=== PATIENT | female | born 1965 | race Caucasian/White ===

== ENCOUNTER 2025-01-01 08:54 | Outpatient (REF) | payer BC, SELFPAY ==
--- NOTE | ~2025-01-01 | XR_ITS ---
CLINICAL HISTORY: M43.16 - Spondylolisthesis, lumbar region --- Additional Notes or Special Instructi ons: Standing, AP, lateral with flexion-extension views 4 views lumbar spine Comparison: None Findings: There is mild stable grade 1 spondylolisthesis at the L4-5 level. There is mild levoscoliosis. No acute fractures or dislocation. No significant degenerative change. IMPRESSION: There is mild stable grade 1 spondylolisthesis at the L4-5 level. There is mild levoscoliosis. This document has been electronically signed by: Booker Reeves MD on 01/01/2025 12:59:07
== END 2025-01-01 08:55 | disposition home or self-care (01) ==
LOC: HO.HOSX 08:54
PROVIDERS: PCP Internal Medicine; Referring Provider Physical Medicine & Rehabilitation; Visit Provider Physician Assistant
DX: M43.16 Spondylolisthesis, lumbar region (principal)
CPT/HCPCS: 72110

== ENCOUNTER 2025-01-01 08:54 | Outpatient (AMB) | payer BC, SELFPAY ==
--- OUTSIDE RECORDS SUMMARY | 2025-01-01 09:13 | XMS_ITS | Encounter Summary ---
Author Organization [facility] Address [address] [place] [address] Care Team Providers Care Head Kiln Operator Name Role Phone Steven Taylor MD Primary Care Provider [phone] Encounter Details Date Type Department Care Team Description 05/10/2024 English Adjunct Faculty Report Medical Records [address] [place] [address] Abstract, Provider Social History Tobacco Use Types Packs/Day Years Used Date Smoking Tobacco: Never Smokeless Tobacco: Never Alcohol Use Standard Drinks/Week Comments No 0 (1 standard drink = 0.6 oz pur e alcohol) Sex Assigned at Date Recorded Not on file Job Start Date Occupation Industry Not on file Not on file Not on file documented as of this encounter Plan of Treatment Not on file documented as of this encounter Visit Diagnoses Not on filedocumented in this encounter Care Teams Head Kiln Operator Relationship Specialty Start Date End Date Steven Taylor MD [address] [place] [address] PCP - General Internal Medicine 10/20/20 documented as of this encounter
[2025-01-01 09:22] VITALS: BMI 26.6
--- NOTE | 2025-01-01 09:22 | A.SPINEOV_ITS ---
Vital Signs 01/01/25 09:22 Height 5 ft 7 in Weight 170 lb BMI 26.6 Intake Visit Reasons: LBP Intake Note: Ms. Medina is here today c/o Low back pain. Outside Parts Salesman Required: No Physical Exam Vital Signs: BMI result Body Mass Index 26.6 Assessment & Plan Assessment & Plan (1) Spondylolisthesis, lumbar region: Code(s): M43.16 - Spondylolisthesis, lumbar region Category: Medical Plan Dear Dr Collins, Thank you for referring Mrs Medina to our office today. 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 It has been getting progressively worse, and has gotten to the point now where she has had 2 stopped walking even short distances to do things because it hurts too bad. She reports that she has a limp when she walks. The pain is localize best to the right buttock, wraps around to the posterior and the anterior thigh going to the knee and then going down the outer aspect of the right calf toward the top of the foot. She underwent a series of different conservative measures including physical therapy, chiropractic as well as cortisone injections. She reports that you did 2 injections for her. The right L4 did not help, the right L5 seem to give her about 24 hours of pain relief. She has also been on medications like anti-inflammatories and Tylenol, Lyrica. These things helped a little bit but no major improvements. She had an MRI done at [facility] showing stenosis at L4-5. PMH: Hypertension which is well controlled, she is prediabetic but is on Ozempic which has also helped for weight loss. High cholesterol which is also well controlled. Reports history of asthma but does not need any treatment regularly for it only very mild symptoms. History of anterior cervical fusion in 2019, elbow surgery, carpal tunnel surgery. She does not report any history of coronary disease, major pulmonary disease, liver or kidney disease, blood clots, bleeding disorders, major abdominal surgery or cancer. Social hx: She has not smoke, she used to use gummies with marijuana but has not use these in a long time, and does not drink any meaningful amount of alcohol Medications: Lyrica, Tylenol, losartan, simvastatin, Xyzal Allergies: Lotrimin and a Z-Dennis Physical exam: Awake alert oriented no acute distress, strength is normal, reflexes are normal, gait is normal with the exception of antalgia when she wa lks. Has a slight scoliotic curvature when she stands up straight. Imaging review: Lumbar MRI done in August 2024 at [facility] shows that the patient has multilevel spondylosis but most meaningful is at L4-5 there is a grade 1 spondylolisthesis with moderate to severe stenosis. There is also slight foraminal stenosis at this level as well. There is a small posteriorly projected synovial cyst on the right L4-5 facet. Impression: 59-year-old female presents with progressive 2-3 years of right- sided low back pain radiating down her leg into her posterior thigh, anterior thigh, knee, lateral calf into the top of her foot with standing and walking. She has been through conservative treatment to no avail. The L5 injection that you did for did give her about 24 hours of pain relief. She has severe stenosis at L4-5. The question here is the spondylolisthesis. We need to do flexion- extension standing x-rays to rule out any instability. If there is no instability, Dr. Salazar typically with due to a simple decompression to treat the stenosis. If there is any signs of significant instability, obviously that would require lumbar fusion. I will review her MRI and the x-rays that I ordered today with Dr. Salazar and get back to the patient with a final plan. We did briefly discuss both surgical treatments. Thank you for allowing us to care for your patient. The total time spent with this visit with this patient was 45 minutes reviewing history, physical exam, lumbar imaging review, and implementation of treatment plan or further diagnostic testing Victor Manuel Salazar MD,PhD [facility] Orders: Orders 2 XR lumbar spine 4V min Today M43.16 - Spondylolisthesis, lumbar region Coding Level of Care Code New Pt Level 4 (18565) Diagnoses Spondylolisthesis, lumbar region M43.16
== END 2025-01-01 10:55 | disposition home or self-care (01) ==
LOC: HO.HNS 08:55
PROVIDERS: PCP Internal Medicine; Referring Provider Physical Medicine & Rehabilitation; Visit Provider Physician Assistant
DX: M43.16 Spondylolisthesis, lumbar region (principal)
CPT/HCPCS: 99204

== ENCOUNTER → 2025-01-01 10:01 | Outpatient (BNV) | payer BC, SELFPAY | PROVIDERS: PCP Internal Medicine; Referring Provider Physical Medicine & Rehabilitation; Visit Provider Radiology Diagnostic Radiology | DX: M43.16 Spondylolisthesis, lumbar region (principal) | CPT/HCPCS: 72110 ==

== ENCOUNTER 2025-01-15 13:31 | Outpatient (AMB) | payer BC, SELFPAY ==
--- OUTSIDE RECORDS SUMMARY | 2025-01-15 13:37 | XMS_ITS | Patient Health Record ---
Author Organization [facility] Address [address] [place] [address] Care Team Providers Care Medical Case Manager Name Role Phone Steven Taylor MD Primary Care Provider Unavail able Roseline Carreno Unavailable [phone] Allergies Allergen (clinical drug ingredient) Drug/Non Drug Allergy documented on EMR Reaction Allergy Type Onset Date Status LamISIL hives Drug Allergy Active azithromycin Zithromax Z-Dennis hives Drug Allergy Active Latex Unknown Drug Allergy Active Dog dander Dog Dander Unknown Allergy Active Dust Mites Unknown Allergy Active Shellfish (FN) Shellfish-derived Products Unknown Drug Allergy Active Results Component Value Reference Range Notes X ray : Foot, left 3V Reviewed date:05/20/2024 05:05:13 PM Interpretation:See Examination above Performing Lab: Notes/Report: See Examination above X ray : Foot, right 3V Reviewed date:05/20/2024 05:04:31 PM Interpretation:See Examination above Performing Lab: Notes/Report: See Examination above Reason For Referral No Information Medications Medication SIG (Take, Route, Frequency, Duration) Notes Start Date End Date Status Losartan Potassium 50 MG TAKE 1 TABLET B Y MOUTH DAILY. Oral for 90 Active Custom Orthotics as directed 04/25/2015 Active Nasacort AQ 55 MCG/ACT 1 puff in each no stril Nasally Once a day for 30 day(s) Not-Taking Simvastatin 10 MG 1 tablet in the evening Orally Once a day Active ProAir HFA 108 (90 Base) MCG/ACT INHALE 2 PUFF(S) EVERY 4 HOURS NEEDED FOR 30 DAYS Inhalation for 17 Not-Taking Singulair 10 MG 1 tablet in the evening Orally Once a day for 30 day(s) Active Estrostep Fe 1-20/1-30/1-35 MG-MCG 1 tablet Orally Once a day for 28 day(s) Not-Taking Custom Orthotics as directed 03/16/2019 Active Cozaar 50 MG 1 tablet Orally Once a day for 30 day(s) Not-Taking Proventil Active LamISIL 250 MG 1 tablet Orally Once a day for 7 days then stop for 3 weeks repeat cycle 90 days for 90 days 12/22/2020 Not-Taking Ozempic Active Xiidra Not-Taking Flovent Diskus Activ e Vitamin D Not-Taking Albuterol Active Levothyroxine Sodium Not-Taking Aspirin 81 MG 1 tablet Orally Once a day for 30 day(s) Not-Taking Custom Orthotics as directed 07/14/2024 Active Lisinopril 20 MG 1 tablet Orally Once a day for 30 day(s) Not-Taking Zoloft Not-Taking Immunizations Vaccine Route Administration Date Status Comme nts COVID-19 Pfizer BioNTech Vaccine Unknown 05/18/2021 Administered 1st vaccine 10/17/20 2nd dose: 11/07/2020 Social History Tobacco Use: Social History Observation Description Date Details (start date - stop date) Never Smoker NA - NA Tobacco use other than smoking: Question Answer Notes Are you an other tobacco user? No Tobacco Control (Standard) Question Answer Notes Tobacco use: Nonsmoker Additional Findings: Tobacco non-user Current no nsmoker AUDIT-C (Standard) Question Answer Notes Did you have a drink containing alcohol in the p ast year? 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) Active confirmed Problem Pronation of foot (98514623) Pronation deformity of right foot (M21.6X1) Active confirmed Problem Raynaud's phenomenon (762431175) Raynaud's phenomenon without gangrene (I73.00) Active confirmed Problem Localized, primary osteoarthritis of the ankle and/or foot (177721274) Arthritis of joint of lesser toe, left (M19.072) Active confirmed Problem Localized, primary osteoarthritis of the ankle and/or foot (846146456) Arthritis of joint of lesser toe, right (M19.071) Active confirmed Problem Plantar fascial fibromatosis (48013831) Plantar fasciitis, bilateral (M72.2) Active confirmed Vital Signs Blood pressure diastolic 71 mm Hg 09/08/2024 Height 5ft 7in in 09/08/2024 Blood pressure systolic 110 mm Hg 09/08/2024 Weight 178 lbs 09/08/2024 BMI 27.88 kg/m2 09/08/2024 Encounters Encounter Location Date Provider Diagnosis [address] [address] 05/20/2024 Roseline Black Pain in right toe(s) M79.674 ; Other hammer toe(s) (acquired), right foot M20.41 ; Arthritis of joint of lesser toe, right M19.071 ; Pain in left toe(s) M79.675 ; Other hammer toe(s) (acquired), left foot M20.42 ; Arthritis of joint of lesser toe, left M19.072 ; Subluxation of metatarsophalangeal joint of toe, initial encounter S93.149A ; Pain in right foot M79.671 ; Plantar fasciitis, bilateral M72.2 ; Other myositis of right foot M60.871 ; Bursitis of right foot M77.51 ; Pain in left foot M79.672 ; Other myositis of left foot M60.872 ; Bursitis of left foot M77.52 and Ganglion cyst M67.[address] [address] 07/14/2024 Roseline Black Pain in right foot M 79.671 ; Plantar fasciitis, bilateral M72.2 ; Other myositis of right foot M60.871 ; Bursitis of right foot M77.51 ; Pain in left foot M79.672 ; Other myositis of left foot M60.872 and Bursitis of left foot M77.[address] [facility] [address] 09/08/2024 Roseline Black Pain in right foot M 79.671 ; Plantar fasciitis, bilateral M72.2 ; Other myositis of right foot M60.871 ; Bursitis of right foot M77.51 ; Pain in left foot M79.672 ; Other myositis of left foot M60.872 and Bursitis of left foot M77.[address] [facility] [address] 05/20/2024 Roseline Black [facility] [address] 07/14/[address] [facility] [address] 10/16/2024 Roseline Black Assessments Encounter Date Diagnosis (ICD Code) Assessment Notes Treatment Notes Treatment Clinical Notes Section Notes 05/20/2024 Pain in right toe(s) (ICD-10 - M79.674) 07/14/2024 Pain in right foot (ICD-10 - M79.671) 07/14/2024 Plantar fasciitis, bilateral (ICD-10 - M72.2) 09/08/2024 Pain in right foot (ICD-10 - M79.671) 07/14/2024 Other myositis of ri ght foot (ICD-10 - M60.871) 09/08/2024 Plantar fasciitis, bilateral (ICD-10 - M72.2) 05/20/2024 Other hammer toe(s) (acquired), right foot (ICD-10 - M20.41) 09/08/2024 Other myositis of ri ght foot (ICD-10 - M60.871) 07/14/2024 Bursitis of right fo ot (ICD-10 - M77.51) 05/20/2024 Arthritis of joint o f lesser toe, right (ICD-10 - M19.071) 07/14/2024 Pain in left foot (ICD-10 - M79.672) 09/08/2024 Bursitis of right fo ot (ICD-10 - M77.51) 05/20/2024 Pain in left toe(s) (ICD-10 - M79.675) 05/20/2024 Other hammer toe(s) (acquired), left foot (ICD-10 - M20.42) 07/14/2024 Other myositis of le ft foot (ICD-10 - M60.872) 09/08/2024 Pain in left foot (ICD-10 - M79.672) 07/14/2024 Bursitis of left brittni t (ICD-10 - M77.52) 09/08/2024 Other myositis of le ft foot (ICD-10 - M60.872) 05/20/2024 Arthritis of joint o f lesser toe, left (ICD-10 - M19.072) 05/20/2024 Subluxation of metatarsophalangeal joint of toe, initial encounter (ICD-10 - S93.149A) 09/08/2024 Bursitis of left brittni t (ICD-10 - M77.52) 05/20/2024 Pain in right foot (ICD-10 - M79.671) 05/20/2024 Other myositis of ri ght foot (ICD-10 - M60.871) 05/20/2024 Plantar fasciitis, bilateral (ICD-10 - M72.2) Patient Educated with: HEEL CORD STRETCHES.pdf (HEEL CORD STRETCHES.pdf ) Patient Educated with: RICE THERAPY.pdf (RICE THERAPY.pdf) 05/20/2024 Bursitis of right fo ot (ICD-10 - M77.51) 05/20/2024 Pain in left foot (ICD-10 - M79.672) 05/20/2024 Other myositis of le ft foot (ICD-10 - M60.872) 05/20/2024 Bursitis of left brittni t (ICD-10 - M77.52) 05/20/2024 Ganglion cyst (ICD-1 0 - M67.40) Plan Of Treatment Pending Test Test Name Order Date *Liver Function Test (LFT) 12/16/2020 X ray : Foot, left 3V 12/04/2012 X ray : Foot, right 3V 12/04/2012 [id number] NAIL, 6 OR MORE 03/17/2021 Insurance Providers Payer Name Payer Address Payer Phone Subscriber Number Group Number Insured Name Patient Relationship to Insured Coverage Start Date Coverage End Date Curtis [address] [place] [address] [id number] Stephanie Medina Self - patient is the insured Medical (General) History Medical History History ICD Code sciatica chicken pox back, hip, knee pain asthma Surgical History Surgery Date(Month/Year) right elbow surgery 2011 carpal tunnel surgery-right 07/2018
--- NOTE | 2025-01-15 14:14 | HO.SPINEOV ---
Intake Visit Reasons: discuss sx with in office Intake Note: Ms. Medina is here today to Discuss Surgery Caser Up Required: No Assessment & Plan Assessment & Plan (1) Spondylolisthesis, lumbar region: Code(s): M43.16 - Spondylolisthesis, lumbar region Category: Medical Plan Mrs Medina came back in today to discuss her issues with her low back and her degenerative spondylolisthesis and severe stenosis at L4-5. Her x-rays showed that she translated almost to a grade 2 spondylolisthesis with standing and we recommended an oblique lumbar interbody fusion. Dr. Salazar and I sat down with her today and reviewed the procedure again at length. She would like to proceed and we have tentatively booked her for March 09. She will stop her Ozempic 1 week prior to surgery. She is otherwise reasonably healthy and I do not see any issues for needing clearance. The patient was given risk and benefits of oblique lumbar interbody fusion surgery including but not limited to infection, hematoma, nerve injury, durotomy, weakness, bowel/bladder injury, persistent pain, and pseudoarthosis or instrumentation failure. We also discussed the option to continue with conservative treatment and patient wishes to proceed with surgery. They are aware they should stop NSAIDs 7 days prior to surgery. All questions were answered to the best of our ability. If there is anything about this patients medical history that we have overlooked or concerns you have about us proceeding with surgery we would appreciate any input you can offer Total amount of time spent in this visit was 20 minutes in discussion of symptoms, lumbar MRI imaging results and subsequent plan of care Victor Manuel Salazar MD,PhD [facility] Coding Level of Care Code Est Pt Level 3 (13191) Diagnoses Spondylolisthesis, lumbar region M43.16
== END 2025-01-15 15:03 | disposition home or self-care (01) ==
LOC: HO.HNS 13:32
PROVIDERS: PCP Internal Medicine; Visit Provider Physician Assistant
DX: M43.16 Spondylolisthesis, lumbar region (principal)
CPT/HCPCS: 99213

== ENCOUNTER 2025-01-28 14:45 | Outpatient (AMB) | payer BC, SELFPAY ==
[2025-01-28 14:46] VITALS: BP 130/76; PULSE 66; TEMP 36.7; O2SAT 99; BMI 27.1
--- NOTE | 2025-01-28 14:46 | AM.OFFWIN_ITS ---
Intake Vital Signs 01/28/25 14:46 Height 5 ft 7 in Weight 173 lb BMI 27.1 BP 130/76 Blood Pressure Location Lt brachial Position Sitting Pulse 66 Pulse Source Pulse Oximeter Temp 98.1 F Temp Source Oral Pulse Oximetry (%) 99 Oxygen Delivery Method Room Air Intake Visit Reasons: EP Ear Flush Intake Note: here for bilateral ear blockage, with left ear pain after bilateral ear flushing attempt at [facility] today Allergies azithromycin Allergy (Mild, Verified 01/28/25 14:56) Hives latex Allergy (Mild, Verified 01/28/25 14:56) Hives terbinafine Allergy (Mild, Verified 01/28/25 14:56) Hives Do you need a note to return to daycare/school/sports/work: No HPI HPI Comments History of Present Illness Details 59 y/o Female patient who presents to [facility] walk in clinic with c/o B/L Ear wax blockage. She was seen today at [facility] primary care where they attempted to Flush both ears unsuccessful. Pt presents to us asking for B/L Ear Flush. Reports feeling pain and discomfort, and Hearing problems. [facility] Medical History (Updated 01/28/25 @ 16:11 by Mayra Shepherd NP) Cerumen impaction Review of Systems Const All systems reviewed & are unremarkable except as noted in HPI and below Physical Exam Vital Signs: Last Vital Signs Temp 98.1 F 01/28/25 14:46 Pulse 66 01/28/25 14:46 BP 130/76 01/28/25 14:46 Pulse Ox 99 01/28/25 14:46 Oxygen Delivery Method Room Air 01/28/25 14:46 BMI result Body Mass Index 27.1 Const General: no acute distress Orientation/consciousness: patient oriented x3 HEENT Ears: external ears normal, TM abnormal obstructed by cerumen bilateral and unab le to visualize TM bilaterally Neuro General: patient oriented x3, gait normal and moves all extremities Psych Speech and movement: Normal speech and movement present Office Procedures Cerumen Removal From which ear canal was the cerumen removed: bilateral Removal: irrigation Notes: patient tolerated procedure well and no complications [id number] Irrigation/Lavage Assessment & Plan Assessment & Plan (1) Cerumen impaction: Code(s): H61.20 - Impacted cerumen, unspecified ear Qualifiers: Laterality: bilateral Qualified Code(s): H61.23 - Impacted cerumen, bilateral Plan: Ordered B/L Ear Lavage. Pt tolerated Procedure well. TM clear and intact after Irrigation. Acetaminophen for pain relief. Coding Level of Care Code Est Pt Level 4 (02676) Diagnoses Bilateral impacted cerumen H61.23 Laterality: bilateral CPT Codes Office Procedure - CPT: 22311-Wuv Irrigation/Lavage ([id number]) Time Spent (min) 20
--- OUTSIDE RECORDS SUMMARY | 2025-01-28 14:47 | XMS_ITS ---
Author Name [facility] Organization Unknown History of Medication Use Medication Directions Dispensed Refills Start Date End Date Stat us Ozempic 0.25 mg or 0.5 mg (2 mg/3 mL) subcutaneous pen injector Inject 0.5mg once weekly by subcutaneous route 11/10/2024 active mupirocin 2 % topical ointment APPLY TO AFFECTED AREA DAILY NEEDED completed Ozempic 0.25 mg or 0.5 mg (2 mg/3 mL) subcutaneous pen injector active albuterol sulfate HFA 90 mcg/actuation aerosol inhaler INHALE 2 PUFFS INTO LUNGS EVERY 4 HOURS NEEDED active Asmanex HFA 100 mcg/actuation aerosol inhaler active Breo Ellipta 100 mcg-25 mcg/dose powder for inhalation 1 PUFF IN THE AM active cyclobenzaprine 10 mg tablet TAKE 1 TABLET BY MOUTH AT BEDTIME NEEDED FOR MUSCLE SPASMS. active cyclobenzaprine 5 mg tablet TAKE ONE TABLET BY MOUTH 3 TIMES A DAY NEEDED FOR MUSCLE SPASM. active ergocalciferol (vitamin D2) 1,250 mcg (50,000 unit) capsule TAKE 1 CAPSULE BY MOUTH ONCE A WEEK FOR 84 DAYS. active Eucrisa 2 % topical ointment APPLY TO AFFECTED AREA TWICE A DAY active fluticasone propionate 110 mcg/actuation HFA aerosol inhaler INHALE 2 PUFFS INTO LUNGS TWICE A DAY active losartan 50 mg tablet TAKE 1 TABLET BY MOUTH 1 TIME EACH DAY. active montelukast 10 mg tablet TAKE 1 TABLET BY MOUTH EVERYDAY AT BEDTIME active simvastatin 10 mg tablet TAKE 1 TABLET BY MOUTH AT BEDTIME. active Allergies Allergen Reaction Severity Comment Documented Date Source Statu s [facility]YCIN [facility] Problems Problem Status Onset Date Problem Type Date of Resoluti on Source Obesity active 2024-04-01 ProblemAct [facility] Essential hypertension active 2024-05-10 ProblemAct [facility] Endocrine/metabolic screening active 2023-10-29 ProblemAct [facility] Hyperlipidemia active 2024-05-10 ProblemAct [facility] Insulin resistance active 2024-05-10 ProblemAct [facility] Prediabetes active 2024-05-10 ProblemAct [facility] Vitamin D deficiency active 2024-05-10 ProblemAct [facility] Encounters Encounter Type Encounter Reason Primary Diagnosis Location Date Ambulatory [facility] 11/19/2024 Ambulatory [facility] 09/22/2024 Ambulatory [facility] 07/27/2024 Care Team Organization Name Specialty Phone Email Start Date End Da te [facility] Steven Howie [facility] 10/27/2024 [facility] 06/12/2024 025
--- OUTSIDE RECORDS SUMMARY | 2025-01-28 14:48 | XMS_ITS | Patient Health Record ---
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 Oral; Duration: 90 Active [employer] as directed 04/25/2015 Active Nasacort AQ 55 MCG/ACT 1 puff in each no stril Nasally Once a day; Duration: 30 day(s) Not-Taking Simvastatin 10 MG 1 tablet in the evening Orally Once a day Active ProAir HFA 108 (90 Base) MCG/ACT INHALE 2 PUFF(S) EVERY 4 HOURS NEEDED FOR 30 DAYS Inhalation; Duration: 17 Not-Taking Singulair 10 MG 1 tablet in the evening Orally Once a day; Duration: 30 day(s) Active Estrostep Fe 1-20/1-30/1-35 MG-MCG 1 tablet Orally Once a day; Duration: 28 day(s) Not-Taking [employer] as directed 03/16/2019 Active Cozaar 50 MG 1 tablet Orally Once a day; Duration: 30 day(s) Not-Taking Proventil Active LamISIL 250 MG 1 tablet Orally Once a day for 7 days then stop for 3 weeks repeat cycle 90 days; Duration: 90 days 12/22/2020 Not-Taking Ozempic Active Xiidra Not-Taking Flovent Diskus Activ e Vitamin D Not-Taking Albuterol Active Levothyroxine Sodium Not-Taking Aspirin 81 MG 1 tablet Orally Once a day; Duration: 30 day(s) Not-Taking [employer] as directed 07/14/2024 Active Lisinopril 20 MG 1 tablet Orally Once a day; Duration: 30 day(s) Not-Taking Zoloft Not-Taking Immunizations Vaccine [...] Problem Acquired hammer toe of right foot (7655866601948893) Other hammer toe(s) (acquired), right foot (M20.41) Active confirmed Problem Acquired hammer toe of left foot (1664713499733656) Other hammer toe(s) (acquired), left foot (M20.42) Active confirmed Problem Plantar fascial fibromatosis (81981861) Plantar fascial fibromatosis (M72.2) Active confirmed Problem 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) Active confirmed Problem Pronation deformity of right foot (M21.6X1) Active confirmed Problem Raynaud's disease (254248853) Raynaud's phenomenon without gangrene (I73.00) Active confirmed Problem Localized, primary osteoarthritis of the ankle and/or foot (851287572) Arthritis of joint of lesser toe, left (M19.072) Active confirmed Problem Localized, primary osteoarthritis of the ankle and/or foot (710458362) Arthritis of joint of lesser toe, right (M19.071) Active confirmed Problem Plantar fascial fibromatosis (52865083) Plantar fasciitis, bilateral (M72.2) Active confirmed Vital Signs Blood pressure diastolic 71 mm Hg 09/08/2024 Height 5ft 7in in 09/08/2024 Blood pressure systolic 110 mm Hg 09/08/2024 Weight 178 lbs 09/08/2024 BMI 27.88 kg/m2 09/08/2024 Encounters Encounter Location Date Provider Diagnosis [address] [phone] 05/20/2024 Roseline Black Pain in right toe(s) [...] left foot M77.52 and Ganglion cyst M67.[address] [address] 07/14/2024 Roseline Black Pain in right foot M 79.671 ; Plantar fasciitis, bilateral M72.2 ; Other myositis of right foot M60.871 ; Bursitis of right foot M77.51 ; Pain in left foot M79.672 ; Other myositis of left foot M60.872 and Bursitis of left foot M77.[address] [facility] [address] 09/08/2024 Roseline Black Pain in right foot M 79.671 ; Plantar fasciitis, bilateral M72.2 ; Other myositis of right foot M60.871 ; Bursitis of right foot M77.51 ; Pain in left foot M79.672 ; Other myositis of left foot M60.872 and Bursitis of left foot M77.[address] [facility] [address] 05/20/2024 Roseline Black [facility] [address] 07/14/2024 [facility] [address] 10/16/2024 Roseline Black Assessments Encounter Date Diagnosis [...] X ray : Foot, right 3V 12/04/2012 [id number] NAIL, 6 OR MORE 03/17/2021 Insurance Providers Payer Name Payer Address Payer Phone Subscriber Number Group Number Insured Name Patient Relationship to Insured Coverage Start Date Coverage End Date Curtis Gandara [address] [place] [address] [id number] Stephanie Medina Self - patient is the insured Medical (General) History Medical History History ICD Code sciatica chicken pox back, hip, knee pain asthma Surgical History Surgery Date(Month/Year) right elbow surgery 2011 carpal tunnel surgery-right 07/2018
--- OUTSIDE RECORDS SUMMARY | 2025-01-28 14:48 | XMS_ITS | Clinical Summary ---
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 cancer risk assessment 9.1 % Breast cancer risk category Low (<15%) Location: [facility], [address] [place] [address], [address], [phone] Procedure Note Darlene Alberts MD - 05/13/2024 This is a summary report. The complete report is available in thepatient's medical record. If you cannot access the medical record, pleasecontact the sending organization for a detailed fax or copy. Full field digital screening tomosynthesis mammography, reviewed with CADand compared to previou mammograms dating back to 05/18/2020 with mostrecent of 04/04/2023. The breasts are composed of fatty and fibroglandulartissue. No suspicious mass, architectural distortion or suspiciouscalcifications are identified. IMPRESSION: : No mammographic evidence of malignancy. BIRADS 1-Negative; N. Breast density: The breasts have scattered areas of fibroglandulardensity. 5 year breast cancer risk assessment 1.7 % Lifetime breast cancer risk assessment 9.1 % Breast cancer risk category Low (<15%) Location: [facility], [address] [place] [address], [address], [phone] us Patti Hernández DO IMG XR PROCEDURES Final Resul t * Cervical Cancer Screening: HPV (11/30/2022) Cervical Cancer Screening: HPV negative, abstracted Historical Provider HEALTH MAINTENANCE Final Result * Hepatitis C Screening (04/13/2013) Hepatitis C Screening abstracted Historical Provider HEALTH MAINTENANCE Final Result from Last 3 Months or Most Recently Relevant to Health Maintenance Insurance [id number] [place] [address] ([employer]) [employer] [facility] ([employer]) Care Teams Cvicu Rn Relationship Specialty Start Date End Date Isabel Taylor MD [address] [place] [address] PCP - General Internal Medicine 10/20/20 01/29/25
== END 2025-01-28 15:45 | disposition home or self-care (01) ==
PROVIDERS: PCP Internal Medicine; Visit Provider Nurse Practitioner Family
DX: H61.23 Impacted cerumen, bilateral (principal)

== ENCOUNTER → 2025-01-28 14:45 | Outpatient (BNVA) | payer BC, SELFPAY | PROVIDERS: PCP Internal Medicine; Visit Provider Nurse Practitioner Family | DX: H61.23 Impacted cerumen, bilateral (principal) | CPT/HCPCS: 69209 ==

== ENCOUNTER 2025-02-04 09:57 | Outpatient (AMB) | payer BC, SELFPAY ==
--- NOTE | 2025-02-04 10:30 | A.OFFPC_ITS ---
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 Intake Note: Pt is here today as a New Patient to est care/PE Allergies azithromycin Allergy (Mild, Verified 02/04/25 10:53) Hives latex Allergy (Mild, Verified 02/04/25 10:53) Hives terbinafine Allergy (Mild, Verified 02/04/25 10:53) Hives Medication List - Last Reconciled 02/04/25 by Jeannine Vera MD albuterol sulfate 90 mcg/actuation 2 puffs inhalation Q4H PRN ergocalciferol (vitamin D2) 1,250 mcg PO QWEEK fexofenadine 180 mg PO DAILY fluticasone furoate 27.5 mcg/actuation (Flonase Sensimist) 1 spray intranasal DAILY fluticasone furoate-vilanterol 100-25 mcg/dose (Breo Ellipta) 1 ea inhalation QAM levocetirizine (Xyzal) 5 mg PO DAILY losartan 50 mg PO DAILY melatonin 3 mg PO BEDTIME PRN multivitamin (Daily Multi-Vitamin tablet) 1 tab PO DAILY pregabalin 75 mg PO BID semaglutide (Ozempic) 0.5 mg subcut QWEEK simvastatin 10 mg PO BEDTIME Tobacco use date assessed: 02/04/25 Dental Screening Dental Screen Date: 02/04/25 Did you have a dental visit in the last 12 months?: Yes Did you have a dental problem in the last 6 months where you did not have access to dental care?: Yes Was dental information given to patient?: Patient has dentist HPI 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 He has sees [facility] for her routine Pap and pelvic exam as well as for breast cancer screening, has an appointment already scheduled for later this month.. She has history of colonoscopy done [place] [address] Raya, due this year for her colon cancer screening again. She has hypertension stable and controlled on losartan 50 mg daily, takes simvastatin 10 mg at bedtime for her dyslipidemia. Has seasonal allergies, takes levocetirizine and Flonase nasal spray, has fexofenadine to take for breakthrough symptoms. She also has mild intermittent asthma current controlled on Breo Ellipta and has albuterol inhaler to use as needed for episodes of bronchospasm has been occurring rarely. . She goes to a medical weight loss clinic and is currently taking Ozempic 0.5 mg subcutaneously once a week for help with weight loss. Has been tolerating medication well and has been successful in losing weight . She has lumbar spinal stenosis previously seen Dr. Collins, who has referred her to Dr. Marie and is scheduled now for L4-5 lumbar spine decompression on 03/09/2025. [facility] Medical History (Updated 02/08/25 @ 01:11 by Jeannine Vera MD) Lumbar spinal stenosis Carpal tunnel syndrome of right wrist Cervical radiculopathy Vasomotor symptoms due to menopause Osteoarthritis Hypercholesterolemia Impaired fasting glucose Eczema of both hands Essential hypertension Allergic rhinitis Mild intermittent asthma Cerumen impaction Surgical History (Updated 02/04/25 @ 11:15 by Jeannine Vera MD) History of carpal tunnel surgery of right wrist History of dilatation and curettage Hx of colonoscopy Family History Maternal Grandfather Substance use disorder Social History Housing: House Patient Tobacco Use Status: Never used Tobacco e-Cigarette/Vaping Use: Never Used service: No Current occupational status: employed Cognitive needs: No Hearing needs: No Vision needs: Yes Female Reproductive History Menstrual Menopause type: natural Questionnaire PHQ-9 Over the last 2 weeks, how often have you been bothered by any of the following problems? 1. Little interest or pleasure in doing things: not at all 2. Feeling down, depressed, or hopeless: not at all 3. Trouble falling or staying asleep, or sleeping too much: several days 4. Feeling tired or having little energy: several days 5. Poor appetite or overeating: several days 6. Feeling bad about yourself - or that you are a failure or have let yourself or your family down: not at all 7. Trouble concentrating on things, such as reading the newspaper or watching television: not at all 8. Moving or speaking so slowly that other people could have noticed. Or the opposite - being so fidgety or restless that you have been moving around a lot more than usual: not at all 9. Thoughts that you would be better off or of hurting yourself in some way: not at all Total score: 3 Depression Screening Interpretation: Negative Depression Screening Done: Yes 13002 - PHQ-9 Billing: Yes Source: Developed by Drs. Ivan Becker, Nayana Julian, Sharan Morrow and colleagues, with an educational yunior from [employer]. Thrive Questionnaire Date Thrive assessed: 01/28/25 I am a: Patient What is your living situation today?: I have a steady place to live Within the past 12 months, did the food you bought not last and you didn't have the money to get more?: Never true Within the past 12 months, did you worry whether your food would run out before you got money to buy more?: Never true Do you have trouble paying for medicines?: No Do you have trouble getting transportation to medical appointments?: No Do you have trouble paying your heating and electricity bill?: No Do you have trouble taking care of your child, family member or friend?: No Do you have trouble with day-to-day activities such as bathing, preparing meals, shopping, managing finances, etc.?: No Are you currently unemployed and looking for a job?: No Are you interested in more education?: No Please select the resources that you would like help with: None Currently or been in a relationship where the following occur: No concerns reported THRIVE Score: 0 AUDIT C Alcohol Use Questionnaire (AUDIT-C) 1. How often do you have a drink containing alcohol?: Never Total Score: 0 SALVADOR-7 AMB Questionnaire SALVADOR-7 Date SALVADOR - 7 assessed: 02/04/25 Feeling nervous, anxious, or on edge: 0 = Not at all Not being able to stop or control worryin = Not at all Worrying too much about different things: 0 = Not at all Trouble relaxin = Not at all Being so restless that it is hard to sit still: 0 = Not at all Becoming easily annoyed or irritable: 0 = Not at all Feeling afraid as if something awful might happen: 0 = Not at all Total SALVADOR-7 score (0-4 normal; 5-9 mild; 10-14 moderate; 15-21 severe): 0 Source: Developed by Drs. Ivan Becker, Nayana Julian, Sharan Morrow and colleagues, with an educational yunior from [employer]. SALVADOR-7 Assessment Billing SALVADOR-7 Assessment Tool: SALVADOR-7 Assessment 95282 ACT Questionnaire In the past 4 weeks, how much of the time did your asthma keep you from getting as much done at work, school or at home?: None of the time During the past 4 weeks, how often have you had shortness of breath?: 1-2 times a week During the past 4 weeks, how often did your asthma symptoms wake you up at night or earlier than usual in the morning?: Not at all During the past 4 weeks, how often have you had to use your rescue inhaler or nebulizer medication?: Once a week or less How would you rate your asthma control during the past 4 weeks?: Well controlled Score: 22 Review of Systems Const Reports no additional complaints Eyes Details: Goes to [facility], Dr Godinez ENT Reports no additional complaints Card Denies chest pain at rest, Denies chest pain with activity, Denies irregular heart rhythm, Denies lightheadedness, Denies palpitations and Denies dyspnea Resp Denies cough and Denies dyspnea GI Reports no additional complaints Details: Has appointment with [facility] on 02/17/2025 for her yearly cervical cancer screening and to be scheduled for mammogram Musc Reports as per HPI and Reports back pain Skin/Breast Details: Sees [facility] annually Neuro Reports no additional complaints Psych Reports no additional complaints Endo Denies palpitations Jose A/Lymph Reports no additional complaints Aller/Immun Reports as per HPI Physical exam (Primary Care) Vital Signs: Last Vital Signs Temp 97.9 F 02/04/25 10:37 Pulse 77 02/04/25 10:37 Resp 16 02/04/25 10:37 BP 132/72 02/04/25 10:37 Pulse Ox 100 02/04/25 10:37 Oxygen Delivery Method Room Air 02/04/25 10:37 BMI result Body Mass Index 26.6 Tobacco/Smoking Status: Tobacco use Status Tobacco use date assessed 02/04/25 02/04/25 10:47 Patient Tobacco Use Status Never used Tobacco 02/04/25 10:47 e-Cigarette/Vaping Use Never Used 02/04/25 10:47 PHQ-9: PHQ-9 Score PHQ-9: Total score 3 02/08/25 00:31 Depression Screening Interpretation: Negative Thrive Assessment: Date of Thrive Assessment Date Thrive assessed 01/28/25 02/04/25 10:31 Currently or been in a relationship where the following occur: No concerns reported Advance Care Planning discussion: Completed/Scanned Date of discussion: 02/04/25 Who was present: Patient Forms completed: Health Care Proxy Time spent: 16-45 minutes Actual minutes spent: 3 Const General: no acute distress and alert Orientation/consciousness: patient oriented x3 HENMT Head: Yes normocephalic Ears: external ears normal, TM's normal bilaterally and EAC's normal General nose exam: Normal external nose present Face and sinus: Yes face symmetric Mouth: Normal oral and palatal mucosa present, oropharynx normal and moist mucous membranes Eyes General: appearance normal, both eyes and all related structures Eyelids: Yes eyelids normal Conjunctivae: conjunctivae normal Sclerae: sclerae normal Pupils: Equal, round and reactive pupils present EOM: EOMs intact bilaterally Neck Neck: Yes full ROM, Yes no lymphadenopathy and Yes supple Thyroid: Thyroid normal Chest Breast/axilla inspection: normal inspection of the breasts Breast/axilla palpation: normal palpation of the breasts Resp Effort & Inspection: normal respiratory effort and able to speak in complete sentences Auscultation: clear to auscultation bilaterally Cardio Rate: regular rate Rhythm: regular rhythm Heart sounds: S1 normal heart sound present and S2 normal heart sound present GI Palpation (GI): Soft to palpation, nontender, no guarding and no masses Auscultation: normal bowel sounds General: Yes no CVA tenderness Back/Spine/Pelvis Back: no CVA tenderness and No back tenderness Skin General skin exam: no rashes or lesions noted Neuro General: patient oriented x3, gait normal, moves all extremities, Normal light touch and pain sensation and no focal motor deficits Cranial nerves: Yes Equal, round and reactive pupils present Cognition (Neuro): normal cognition Gait exam (Neuro): Normal gait present Motor exam (neuro): 5/5 motor strength present throughout Extrem General: Yes normal to inspection, Yes full ROM, Yes no joint enlargement, Yes no pedal edema and Yes normal gait Psych Appearance: grossly normal and well kempt Mental Status: mental status grossly normal Speech and movement: Normal speech and movement present Affect: normal affect Attitude: cooperative Thought process: Normal thought process present Thought content: Normal thought content present Coding Level of Care Code New Pt Prev Care 40-64y(25986) Diagnoses Annual visit for general adult medical examination with abnormal findings Z00.01 Encounter for screening for malignant neoplasm of colon Z12.11 Essential hypertension I10 Impaired fasting glucose R73.01 Hypercholesterolemia E78.00 Encounter for counseling regarding advance directives Z71.89 Allergic rhinitis, unspecified seasonality, unspecified trigger J30.9 Allergic rhinitis trigger: unspecified Allergic rhinitis seasonality: unspecified Lumbar spinal stenosis M48.061 Mild intermittent asthma J45.20 Additional Codes SALVADOR-7 Assessment Billing - SALVADOR-7 Assessment Tool: SALVADOR-7 Assessment 87745 ([id number]) PHQ-9 - 94377 - PHQ-9 Billing: Yes ([id number]) Vital Signs *Quality* - Advance Care Planning discussion: Completed/Scanned ([id number]) Vital Signs *Quality* - Time spent: 16-45 minutes ([id number]) Assessment & Plan Assessment & Plan (1) Annual visit for general adult medical examination with abnormal findings: Code(s): Z00.01 - Encounter for general adult medical examination with abnormal findings Plan: Will check appropriate labs. Recommended dental visit every 6 months and regular eye exams, at least every 2 years. Take adequate calcium in diet and vitamin-D 3 at 2000 IU per cap once a day, in addition to weight-bearing exercises to help maintain good muscle tone and weight control. Instructed to do self-breast exam, and recommended to get yearly mammogram goes to [facility] for her routine Pap and pelvic exam and for her mammogram order, has appointment already scheduled per patient reminded to provide a screening copy of her last Pap smear and mammogram results. Up-to-date with her vaccines (2) Encounter for screening for malignant neoplasm of colon: Code(s): Z12.11 - Encounter for screening for malignant neoplasm of colon Plan: Referred back to Dr. Preston for her colon cancer screening (3) Essential hypertension: Code(s): I10 - Essential (primary) hypertension Category: Medical Plan: Blood pressure at goal of less than 130/80. Continue with losartan 50 mg daily. Reinforced importance of following a low sodium diet, getting regular exercise, and lowering stress levels. (4) Impaired fasting glucose: Code(s): R73.01 - Impaired fasting glucose Category: Medical Plan: Your previous fasting blood sugars were elevated above 100 mg/dL. Impaired glucose metabolism increases the risk for developing diabetes mellitus type 2, as well as heart attack and stroke later on. Lifestyle changes that promotes weight loss, healthy eating habits, and regular exercise are important, and can prevent the progression to diabetes (5) Hypercholesterolemia: Code(s): E78.00 - Pure hypercholesterolemia, unspecified Category: Medical Plan: Fasting lipids ordered, currently on simvastatin 10 mg at bedtime (6) Encounter for counseling regarding advance directives: Code(s): Z71.89 - Other specified counseling Plan: Initiated the conversation about Advanced Directives. Advanced Directives help patients prepare for current and future decisions about their medical treatment and place of care. Discussed with patient that it is a process where a patients current condition and prognosis are reviewed, their wishes for information regarding their illness are elicited, and likely medical dilemmas are presented and options discussed. Healthcare proxy form completed today. The form can be amended as needed, reviewed yearly and make changes as needed (7) Allergic rhinitis: Code(s): J30.9 - Allergic rhinitis, unspecified Category: Medical Qualifiers: Allergic rhinitis trigger: unspecified Allergic rhinitis seasonality: unspecified Qualified Code(s): J30.9 - Allergic rhinitis, unspecified Plan: Takes levocetirizine and an occasional fexofenadine and uses fluticasone nasal spray (8) Lumbar spinal stenosis: Comment: L4-L5, scheduled for lumbar spinal decompression 03/09/[address] Salazar. Code(s): M48.061 - Spinal stenosis, lumbar region without neurogenic claudication Category: Medical Plan: Seen by [facility] and has been referred to Dr. Salazar for lumbar spinal decompression scheduled for 03/09/2020 (9) Mild intermittent asthma: Comment: sees [facility] , has had allergy shots for more than 5 years Code(s): J45.20 - Mild intermittent asthma, uncomplicated Category: Medical Plan: Currently followed at a i.e. any, currently on Breo Ellipta and uses albuterol inhaler as needed for episodes of bronchospasm and wheezing. Orders: Orders Basic Metabolic Panel Fasting 02/06/25 E78.00 - Pure hypercholesterolemia, unspecified, I10 - Essential (primary) hypertension, R73.01 - Impaired fasting glucose, Z00.01 - Encounter for general adult medical examination with abnormal findings, Z71.89 - Other specified counseling Lipid Panel 02/06/25 E78.00 - Pure hypercholesterolemia, unspecified, I10 - Essential (primary) hypertension, R73.01 - Impaired fasting glucose, Z00.01 - Encounter for general adult medical examination with abnormal findings, Z71.89 - Other specified counseling Hemoglobin A1c 02/06/25 E78.00 - Pure hypercholesterolemia, unspecified, I10 - Essential (primary) hypertension, R73.01 - Impaired fasting glucose, Z00.01 - Encounter for general adult medical examination with abnormal findings, Z71.89 - Other specified counseling Vitamin D 25-OH Total 02/06/25 E78.00 - Pure hypercholesterolemia, unspecified, I10 - Essential (primary) hypertension, R73.01 - Impaired fasting glucose, Z00 .01 - Encounter for general adult medical examination with abnormal findings, Z71.89 - Other specified counseling Complete Blood Count Auto Diff 02/06/25 E78.00 - Pure hypercholesterolemia, unspecified, I10 - Essential (primary) hypertension, R73.01 - Impaired fasting glucose, Z00.01 - Encounter for general adult medical examination with abnormal findings, Z71.89 - Other specified counseling Alanine Aminotransferase 02/06/25 E78.00 - Pure hypercholesterolemia, unspecified, I10 - Essential (primary) hypertension, R73.01 - Impaired fasting glucose, Z00.01 - Encounter for general adult medical examination with abnormal findings, Z71.89 - Other specified counseling Aspartate Amino Transferase 02/06/25 E78.00 - Pure hypercholesterolemia, unspecified, I10 - Essential (primary) hypertension, R73.01 - Impaired fasting glucose, Z00.01 - Encounter for general adult medical examination with abnormal findings, Z71.89 - Other specified counseling Referrals Gastroenterology Referral Z12.11 - Encounter for screening for malignant neoplasm of colon Medications: New losartan 50 mg PO DAILY 90 tabs 4RF
--- OUTSIDE RECORDS SUMMARY | 2025-02-04 10:33 | XMS_ITS | Patient Health Record ---
Author Organization [facility] Address [address] [place] [address] Care Team Providers Care Self Defense Instructor Name Role Phone Steven Taylor MD Primary Care Provider Unavail able Roseline Carreno Unavailable [phone] Allergies Allergen (clinical drug ingredient) Drug/Non Drug [...] Problem Acquired hammer toe of right foot ([id number]) Other hammer toe(s) (acquired), right foot (M20.41) Active confirmed Problem Acquired hammer toe of left foot (0763761513084569) Other hammer toe(s) (acquired), left foot (M20.42) Active confirmed Problem Plantar fascial fibromatosis (34352844) Plantar fascial fibromatosis (M72.2) Active confirmed Problem 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) Active confirmed Problem Pronation deformity of right foot (M21.6X1) Active confirmed Problem Raynaud's disease (374375268) Raynaud's phenomenon without gangrene (I73.00) Active confirmed Problem Localized, primary osteoarthritis of the ankle and/or foot (535493624) Arthritis of joint of lesser toe, left (M19.072) Active confirmed Problem Localized, primary osteoarthritis of the ankle and/or foot (321117793) Arthritis of joint of lesser toe, right (M19.071) Active confirmed Problem Plantar fascial fibromatosis (38993708) Plantar fasciitis, bilateral (M72.2) Active confirmed Vital Signs Blood pressure diastolic 71 mm Hg 09/08/2024 Height 5ft 7in in 09/08/2024 Blood pressure systolic 110 mm Hg 09/08/2024 Weight 178 lbs 09/08/2024 BMI 27.88 kg/m2 09/08/2024 Encounters Encounter Location Date Provider Diagnosis [address] [address] 05/20/2024 Roseline Black Pain in right toe(s) [...] left foot M77.52 and Ganglion cyst M67.[address] [address] 07/14/2024 Roseline Black Pain in right foot M 79.671 ; Plantar fasciitis, bilateral M72.2 ; Other myositis of right foot M60.871 ; Bursitis of right foot M77.51 ; Pain in left foot M79.672 ; Other myositis of left foot M60.872 and Bursitis of left foot M77.[address] [facility] [address] 09/08/2024 Roseline Black Pain in right foot M 79.671 ; Plantar fasciitis, bilateral M72.2 ; Other myositis of right foot M60.871 ; Bursitis of right foot M77.51 ; Pain in left foot M79.672 ; Other myositis of left foot M60.872 and Bursitis of left foot M77.[address] [facility] [address] 05/20/2024 Roseline Black [facility] [address] 07/14/2024 Roseline Black [facility] [address] 10/16/2024 Roseline Black Assessments Encounter Date Diagnosis [...] X ray : Foot, right 3V 12/04/2012 [id number] NAIL, 6 OR MORE 03/17/2021 Insurance Providers Payer Name Payer Address Payer Phone Subscriber Number Group Number Insured Name Patient Relationship to Insured Coverage Start Date Coverage End Date Curtis Gandara [address] [place] [address] [id number] Stephanie Medina Self - patient is the insured Medical (General) History Medical History History ICD Code sciatica chicken pox back, hip, knee pain asthma Surgical History Surgery Date(Month/Year) right elbow surgery 2011 carpal tunnel surgery-right 07/2018
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
[2025-02-04 10:37] VITALS: BP 132/72; PULSE 77; RESP 16; TEMP 36.6; O2SAT 100; BMI 26.6
== END 2025-02-04 11:38 | disposition home or self-care (01) ==
LOC: HO.HMCC 09:57
PROVIDERS: PCP Internal Medicine; Visit Provider Internal Medicine
DX: Z00.01 Encounter for general adult medical examination with abnormal findings (principal); Z12.11 Encounter for screening for malignant neoplasm of colon; I10 Essential (primary) hypertension; R73.01 Impaired fasting glucose; E78.00 Pure hypercholesterolemia, unspecified; Z71.89 Other specified counseling; J30.9 Allergic rhinitis, unspecified; M48.061 Spinal stenosis, lumbar region without neurogenic claudication; J45.20 Mild intermittent asthma, uncomplicated; Z00.00 Encounter for general adult medical examination without abnormal findings

== ENCOUNTER → 2025-02-04 09:57 | Outpatient (BNVA) | payer BC, SELFPAY | PROVIDERS: PCP Internal Medicine; Visit Provider Internal Medicine | DX: Z00.01 Encounter for general adult medical examination with abnormal findings (principal); I10 Essential (primary) hypertension; R73.01 Impaired fasting glucose; E78.00 Pure hypercholesterolemia, unspecified; J30.9 Allergic rhinitis, unspecified; M48.061 Spinal stenosis, lumbar region without neurogenic claudication; J45.20 Mild intermittent asthma, uncomplicated; Z71.89 Other specified counseling | CPT/HCPCS: 96127 ==

== ENCOUNTER 2025-02-06 07:52 | Outpatient (REF) | payer BC, SELFPAY ==
--- OUTSIDE RECORDS SUMMARY | 2025-02-06 07:55 | XMS_ITS | Patient Health Record ---
Author Organization [facility] Address [address] [place] [address] Care Team Providers Care Land Classifier Name Role Phone Steven Taylor MD Primary Care Provider Unavail able Roseline Carreno Unavailable [phone] Allergies Allergen (clinical drug ingredient) Drug/Non Drug [...] Problem Acquired hammer toe of right foot (9462555018895362) Other hammer toe(s) (acquired), right foot (M20.41) Active confirmed Problem Acquired hammer toe of left foot (7977783283378093) Other hammer toe(s) (acquired), left foot (M20.42) Active confirmed Problem Plantar fascial fibromatosis (18434669) Plantar fascial fibromatosis (M72.2) Active confirmed Problem 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) Active confirmed Problem Pronation deformity of right foot (M21.6X1) Active confirmed Problem Raynaud's disease (218464715) Raynaud's phenomenon without gangrene (I73.00) Active confirmed Problem Localized, primary osteoarthritis of the ankle and/or foot (742363710) Arthritis of joint of lesser toe, left (M19.072) Active confirmed Problem Localized, primary osteoarthritis of the ankle and/or foot (731608866) Arthritis of joint of lesser toe, right (M19.071) Active confirmed Problem Plantar fascial fibromatosis (39666475) Plantar fasciitis, bilateral (M72.2) Active confirmed Vital Signs Blood pressure diastolic 71 mm Hg 09/08/2024 Height 5ft 7in in 09/08/2024 Blood pressure systolic 110 mm Hg 09/08/2024 Weight 178 lbs 09/08/2024 BMI 27.88 kg/m2 09/08/2024 Encounters Encounter Location Date Provider Diagnosis [address] [address] 05/20/2024 Roseline Black Pain in right toe(s) [...] left foot M77.52 and Ganglion cyst M67.[address] [address] 07/14/2024 Roseline Black Pain in right foot M 79.671 ; Plantar fasciitis, bilateral M72.2 ; Other myositis of right foot M60.871 ; Bursitis of right foot M77.51 ; Pain in left foot M79.672 ; Other myositis of left foot M60.872 and Bursitis of left foot M77.52 [facility] [address] 09/08/2024 Roseline Black Pain in right foot M 79.671 ; Plantar fasciitis, bilateral M72.2 ; Other myositis of right foot M60.871 ; Bursitis of right foot M77.51 ; Pain in left foot M79.672 ; Other myositis of left foot M60.872 and Bursitis of left foot M77.[address] [facility] [address] 05/20/2024 Roseline Black [facility] [address] 07/14/2024 [facility] [address] 10/16/2024 Roseline Black Assessments Encounter Date Diagnosis [...] X ray : Foot, right 3V 12/04/2012 [id number] NAIL, 6 OR MORE 03/17/2021 Insurance Providers Payer Name Payer Address Payer Phone Subscriber Number Group Number Insured Name Patient Relationship to Insured Coverage Start Date Coverage End Date Curtis Gand[address] [place] [address] [id number] Stephanie Medina Self - patient is the insured Medical (General) History Medical History History ICD Code sciatica chicken pox back, hip, knee pain asthma Surgical History Surgery Date(Month/Year) right elbow surgery 2011 carpal tunnel surgery-right 07/2018
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
[2025-02-06 11:19] LABS: MANUAL DIFF FLAG NO
[2025-02-06 11:33] LABS: Hematocrit 38.3 % (37.0-47.0); Hemoglobin 12.7 g/dl (12.0-16.0); Imm Gran Abs Auto 0.02 X10*3/uL (0.00-0.03); Imm Gran Pct Auto 0.3 % (0.0-0.4); Lymphocytes Absolute Auto 1.6 X10*3/uL (1.2-4.9); Mean Corpuscular HGB Conc 33.2 g/dl (31.0-35.0); Mean Corpuscular Hemoglobin 29.3 pg (27.0-33.0); Mean Corpuscular Volume 88.5 fL (80.0-98.0); NRBC Abs Auto 0.000 X10*3/uL (0.0-0.012); NRBC Pct Auto 0.0 /100WBC (0.0-0.2); Platelet Count 250 X10*3/uL (160-400); Red Blood Count 4.33 X10*6/uL (4.20-5.50); White Blood Count 6.3 X10*3/uL (4.8-10.8)
[2025-02-06 11:45] LABS: Hemoglobin A1C 117.0025 umol/L; Total Hemoglobin (HGBA1C) 3376.2519 umol/L
[2025-02-06 11:57] LABS: Alanine Aminotransferase 29 U/L (0-31); Anion Gap 12 (12-20); Aspartate Amino Transferase 24 U/L (5-31); Blood Urea Nitrogen 19 mg/dL (9-16); Calcium 9.7 mg/dL (8.4-10.2); Carbon Dioxide 29 mmol/L (22-29); Chloride 105 mmol/L (96-108); Cholesterol 148 mg/dL (<200); Estimated Glomerular Filt Rate > 60; HDL Cholesterol 58 mg/dL (>40); Potassium 4.1 mmol/L (3.3-5.1); Sodium 142 mmol/L (135-145); Triglycerides 86 mg/dL (<150)
== END 2025-02-06 07:53 | disposition home or self-care (01) ==
LOC: HO.HMGCLDS 07:52
PROVIDERS: PCP Internal Medicine; Visit Provider Internal Medicine
DX: Z00.01 Encounter for general adult medical examination with abnormal findings (principal); I10 Essential (primary) hypertension; E78.00 Pure hypercholesterolemia, unspecified; R73.01 Impaired fasting glucose; Z71.89 Other specified counseling
CPT/HCPCS: 36415; 80048; 80061; 82306; 83036; 84450; 84460; 85025

== ENCOUNTER 2025-02-12 08:41 | Outpatient (AMB) | payer BC, SELFPAY ==
--- NOTE | 2025-02-12 08:43 | A.OFFPC_ITS ---
Intake Visit Reasons: anxiety/depression android [employer] Electronic War[employer] Officer Required: No Accompanied by: Self / Same As Patient Allergies azithromycin Allergy (Mild, Verified 02/12/25 09:19) Hives latex Allergy (Mild, Verified 02/12/25 09:19) Hives terbinafine Allergy (Mild, Verified 02/12/25 09:19) Hives Medication List - Last Reconciled 02/12/25 by Jeannine Vera MD albuterol sulfate 90 mcg/actuation 2 puffs inhalation Q4H PRN fexofenadine 180 mg PO DAILY fluticasone furoate 27.5 mcg/actuation (Flonase Sensimist) 1 spray intranasal DAILY fluticasone furoate-vilanterol 100-25 mcg/dose (Breo Ellipta) 1 ea inhalation QAM levocetirizine (Xyzal) 5 mg PO DAILY losartan 50 mg PO DAILY melatonin 3 mg PO BEDTIME PRN multivitamin (Daily Multi-Vitamin tablet) 1 tab PO DAILY pregabalin 75 mg PO BID semaglutide (Ozempic) 0.5 mg subcut QWEEK simvastatin 10 mg PO BEDTIME Tobacco use date assessed: 02/12/25 Dental Screening Dental Screen Date: 02/04/25 Did you have a dental visit in the last 12 months?: Yes Did you have a dental problem in the last 6 months where you did not have access to dental care?: No Was dental information given to patient?: Patient has dentist HPI anxiety/depression android HPI Details 69-year-old lady here today stating that she has been having frequent a ttacks of anxiety lately, mostly brought about by her problems with her finances and presence of bugs in her house . She states that she has already called an agricultural extension specialist and was able to fix latter problem, and is in a better situation now with regards to her finances. She has been seeing a therapist which has been helping. She also has started exercising again which helps relieve her anxiety attacks. Does not want to be referred for Psychiatry and does not feel that she needs to be started on any medication at present time. [facility] Medical History (Updated 02/12/25 @ 09:29 by Jeannine Vera MD) Dyslipidemia Acute anxiety Lumbar spinal stenosis Carpal tunnel syndrome of right wrist Cervical radiculopathy Vasomotor symptoms due to menopause Osteoarthritis Hypercholesterolemia Impaired fasting glucose Eczema of both hands Essential hypertension Allergic rhinitis Mild intermittent asthma Cerumen impaction Surgical History History of carpal tunnel surgery of right wrist History of dilatation and curettage Hx of colonoscopy Family History Maternal Grandfather Substance use disorder Social History Housing: House Patient Tobacco Use Status: Never used Tobacco e-Cigarette/Vaping Use: Never Used service: No Current occupational status: employed Cognitive needs: No Hearing needs: No Vision needs: Yes Questionnaire PHQ-9 Over the last 2 weeks, how often have you been bothered by any of the following problems? 1. Little interest or pleasure in doing things: not at all 2. Feeling down, depressed, or hopeless: not at all 3. Trouble falling or staying asleep, or sleeping too much: not at all 4. Feeling tired or having little energy: not at all 5. Poor appetite or overeating: not at all 6. Feeling bad about yourself - or that you are a failure or have let yourself or your family down: not at all 7. Trouble concentrating on things, such as reading the newspaper or watching television: not at all 8. Moving or speaking so slowly that other people could have noticed. Or the opposite - being so fidgety or restless that you have been moving around a lot more than usual: not at all 9. Thoughts that you would be better off or of hurting yourself in some way: not at all Total score: 0 Depression Screening Interpretation: Negative Depression Screening Done: Yes 85328 - PHQ-9 Billing: Yes Source: Developed by Drs. Ivan Becker, Nayana Julian, Sharan Morrow and colleagues, with an educational yunior from [employer]. Thrive Questionnaire Date Thrive assessed: 01/28/25 SALVADOR-7 AMB Questionnaire SALVADOR-7 Date SALVADOR - 7 assessed: 02/12/25 Feeling nervous, anxious, or on edge: 1 = Several days Not being able to stop or control worryin = Several days Worrying too much about different things: 1 = Several days Trouble relaxin = Not at all Being so restless that it is hard to sit still: 0 = Not at all Becoming easily annoyed or irritable: 1 = Several days Feeling afraid as if something awful might happen: 0 = Not at all Total SALVADOR-7 score (0-4 normal; 5-9 mild; 10-14 moderate; 15-21 severe): 4 Source: Developed by Drs. Ivan Becker, Nayana Julian, Sharan Morrow and colleagues, with an educational yunior from [employer]. SALVADOR-7 Assessment Billing SALVADOR-7 Assessment Tool: SALVADOR-7 Assessment 46783 Review of Systems Const Reports no additional complaints ENT Reports no additional complaints Card Denies chest pain at rest, Denies chest pain with activity, Denies irregular heart rhythm, Denies lightheadedness and Denies dyspnea Resp Denies cough and Denies dyspnea GI Reports no additional complaints Skin/Breast Details: Sees [facility] annually Neuro Reports no additional complaints Psych Reports no additional complaints Physical exam (Primary Care) Tobacco/Smoking Status: Tobacco use Status Tobacco use date assessed 02/12/25 02/12/25 08:50 Patient Tobacco Use Status Never used Tobacco 02/12/25 08:50 e-Cigarette/Vaping Use Never Used 02/12/25 08:50 PHQ-9: PHQ-9 Score PHQ-9: Total score 0 02/12/25 09:28 Depression Screening Interpretation: Negative Thrive Assessment: Date of Thrive Assessment Date Thrive assessed 01/28/25 02/12/25 08:50 Telehealth Telehealth Telehealth Platform: [facility] Location of provider rendering services: practice address Location of patient: address on file Patient Identification confirmed using: Name, : Yes Telehealth method: voice only Patient verbally consented to treatment: Yes Patient verbally consented to billing insurance company: Yes Patient informed of any privacy concerns related to visit: Yes Minutes spent on Phone/Video with Pt.: 15 Coding Level of Care Code Tele Est Pt Level 3 (17802) Diagnoses Acute anxiety F41.9 Additional Codes SALVADOR-7 Assessment Billing - SALVADOR-7 Assessment Tool: SALVADOR-7 Assessment 80116 ([id number]) PHQ-9 - 90400 - PHQ-9 Billing: Yes ([id number]) Assessment & Plan Assessment & Plan (1) Acute anxiety: Code(s): F41.9 - Anxiety disorder, unspecified Category: Medical Plan: Discussed symptoms of anxiety. She already sees a therapist which has been helping, does not feel D the ne start ed on medication at present time. iscussed other ways to relieve stress including : exercise or a massage, Get enough rest, Avoid alcohol, caffeine, nicotine, and illegal drugs which can increase your anxiety level and cause sleep problems.
--- OUTSIDE RECORDS SUMMARY | 2025-02-12 08:45 | XMS_ITS | Clinical Summary ---
Author Organization [facility] Address [address] [phone] Phone Care Team Providers Care Head Start Director Name Role Phone Isabel Taylor MD Primary Care Provider Social History Tobacco Use Types Packs/Day Years Used Date Smoking Tobacco: Never Assessed Education Answer Date Recorded Are you interested in more education? Not on mag e 11/24/2022 Are you concerned about learning? Not on file 11/24/2022 No 11/24/2022 No 11/24/2022 Digital Access Answer Date Recorded No 12/25/2022 No 12/25/2022 Reliable internet access at home? Not on file 12/25/2022 Device with a working camera? Not on file Comments Unknown Sex and Gender Information Value Date Recorded Sex Assigned at Not on file Legal Sex Unknown 11/17/2021 1:05 PM EDT Gender Identity Not on file Sexual Orientation Not on file Plan of Treatment Not on file Medical Devices Not on file Insurance [facility] PPO BLUE CROSS OUT OF STATE PPO BLUE CROSS OUT OF STATE PPO BLUE CROSS OUT OF [facility] PPO BLUE CROSS OUT OF STATE PPO [facility] OUT STATE PPO Care Teams Head Start Director Relationship Specialty Start Date End Date Isabel Taylor MD [address] [place] [address] PCP - General Internal Medicine 11/20/21 Additional Source Comments The information contained in this document represents components of the legal health record. It is not the complete legal health record.[facility]
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
--- OUTSIDE RECORDS SUMMARY | 2025-02-12 08:45 | XMS_ITS | Patient Health Record ---
Author Organization [facility] Address [address] [place] [address] Care Team Providers Care Slab Grinder Name Role Phone Steven Taylor MD Primary Care Provider Unavail able Roseline Carreno Unavailable [phone] Allergies Allergen (clinical drug ingredient) Drug/Non Drug [...] Problem Acquired hammer toe of right foot (6927378342676467) Other hammer toe(s) (acquired), right foot (M20.41) Active confirmed Problem Acquired hammer toe of left foot (7011280128110536) Other hammer toe(s) (acquired), left foot (M20.42) Active confirmed Problem Plantar fascial fibromatosis (90410681) Plantar fascial fibromatosis (M72.2) Active confirmed Problem 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) Active confirmed Problem Pronation deformity of right foot (M21.6X1) Active confirmed Problem Raynaud's disease (655142049) Raynaud's phenomenon without gangrene (I73.00) Active confirmed Problem Localized, primary osteoarthritis of the ankle and/or foot (619216895) Arthritis of joint of lesser toe, left (M19.072) Active confirmed Problem Localized, primary osteoarthritis of the ankle and/or foot (046576080) Arthritis of joint of lesser toe, right (M19.071) Active confirmed Problem Plantar fascial fibromatosis (20445178) Plantar fasciitis, bilateral (M72.2) Active confirmed Vital Signs Blood pressure diastolic 71 mm Hg 09/08/2024 Height 5ft 7in in 09/08/2024 Blood pressure systolic 110 mm Hg 09/08/2024 Weight 178 lbs 09/08/2024 BMI 27.88 kg/m2 09/08/2024 Encounters Encounter Location Date Provider Diagnosis [address] [phone] 05/20/2024 Roseline Black Pain in right toe(s) [...] left foot M77.52 and Ganglion cyst M67.[address] [address] 07/14/2024 Roseline Black Pain in right foot M 79.671 ; Plantar fasciitis, bilateral M72.2 ; Other myositis of right foot M60.871 ; Bursitis of right foot M77.51 ; Pain in left foot M79.672 ; Other myositis of left foot M60.872 and Bursitis of left foot M77.[address] [facility] [address] 09/08/2024 Roseline Black Pain in right foot M 79.671 ; Plantar fasciitis, bilateral M72.2 ; Other myositis of right foot M60.871 ; Bursitis of right foot M77.51 ; Pain in left foot M79.672 ; Other myositis of left foot M60.872 and Bursitis of left foot M77.[address] [facility] [address] 05/20/2024 Roseline Black [facility] [address] 07/14/2024 [facility] [address] 10/16/2024 Roseline Black Assessments Encounter Date Diagnosis [...] X ray : Foot, right 3V 12/04/2012 [id number] NAIL, 6 OR MORE 03/17/2021 Insurance Providers Payer Name Payer Address Payer Phone Subscriber Number Group Number Insured Name Patient Relationship to Insured Coverage Start Date Coverage End Date Curtis Gandara [address] [place] [address] [id number] Stephanie Medina Self - patient is the insured Medical (General) History Medical History History ICD Code sciatica chicken pox back, hip, knee pain asthma Surgical History Surgery Date(Month/Year) right elbow surgery 2011 carpal tunnel surgery-right 07/2018
== END 2025-02-12 10:09 | disposition home or self-care (01) ==
LOC: HO.HMCC 08:41
PROVIDERS: PCP Internal Medicine; Visit Provider Internal Medicine
DX: F41.9 Anxiety disorder, unspecified (principal)

== ENCOUNTER → 2025-02-12 08:41 | Outpatient (BNVA) | payer BC, SELFPAY | PROVIDERS: PCP Internal Medicine; Visit Provider Internal Medicine | DX: F41.9 Anxiety disorder, unspecified (principal); Z13.31 Encounter for screening for depression; Z13.39 Encounter for screening examination for other mental health and behavioral disorders | CPT/HCPCS: 96127 ==

== ENCOUNTER → 2025-02-23 12:50 | Outpatient (BNV) | payer BC, SELFPAY | PROVIDERS: Admitting Provider Neurological Surgery; PCP Internal Medicine; Visit Provider Internal Medicine Cardiovascular Disease | DX: Z01.810 Encounter for preprocedural cardiovascular examination (principal) | CPT/HCPCS: 93010 ==

== ENCOUNTER 2025-03-09 09:42 | Inpatient (IN) | payer BC, SELFPAY ==
--- OUTSIDE RECORDS SUMMARY | 2024-10-21 04:00 | XMS_ITS ---
Author Organization [facility] Address [address] [place] [address] Care Team Providers Care Pipe Fitter Supervisor Maintenance Name Role Phone Brandon HUBBARD, Steven Primary Care Provider Roseline Moya [phone] Encounters Encounter Location Date Provider Diagnosis [address] [address] 10/21/2024 Roseline Carreno Plan Of Treatment No Information Progress Notes * Stephanie MEDINA ADOB: [birth year] (59 yo F)Acc No.[id number]:10/21/2024 Progress Notes Patient: Setphanie SHAH Provider: Dannielle Carreno DPM :1965 A ge:59 Y S ex:Female Date:10/21/2024 Address:[address] [place], [place] [id number] Pcp:Steven Taylor MD Subjective: * Chief Complaints: [...] Carreno DPM Date: 0 10/21/2024 Generated for Printi ng/Faxing/eTransmitting on: 0 03/09/2025 10:26 AM EDT
--- NOTE | 2025-02-23 | ECG_ITS ---
Test Reason : preop Blood Pressure : */* mmHG Vent. Rate : 69 BPM Atrial Rate : 69 BPM P-R Int : 136 ms QRS Dur : 88 ms QT Int : 394 ms P-R-T Axes : 49 14 51 degrees QTcB Int : 422 ms Normal sinus rhythm Low voltage QRS Borderline ECG No previous ECGs available Referred By: Jazlyn Hsieh Electronically Signed By: FRANSISCO QUIROGA MD
[2025-02-23 12:11] VITALS: BP 118/61; PULSE 73; RESP 20; O2SAT 98; BMI 26.8
--- NOTE | 2025-02-23 12:28 | HO.ANESPROP2 ---
Documented by User: Jazlyn Hsieh NP 02/24/25 10:29 HPI - Anesthesia Eval Consult details Narrative: 59yo F for L4-5 Oblique Lumbar Interbody Fusion, 03/09/25 No recent illness No CP/SOB with walking, housework Asthma: controlled on Breo daily - very rare albuterol use 1 x report of BP/HR drop intraop requiring epi - resolved without further symptoms after discharge Anesthesia Pre-Procedure Meds Is the patient on any of the following meds?: GLP1/DPP4 PMFSH Active Problems Active Problems: All Active Problems Acute anxiety (Acute) Cervical radiculopathy (Acute) Spondylolisthesis, lumbar region (Acute) Dyslipidemia (Acute) Lumbar spinal stenosis (Acute) Osteoarthritis (Acute) Eczema of both hands (Acute) Essential hypertension (Acute) Allergic rhinitis (Acute) Mild intermittent asthma (Acute) Past Medical History Medical History Anesthesia complication Back pain Anxiety Cervical radiculopathy Dyslipidemia Lumbar spinal stenosis Carpal tunnel syndrome of right wrist Osteoarthritis Hypercholesterolemia Impaired fasting glucose Eczema of both hands Essential hypertension Allergic rhinitis Mild intermittent asthma Family History Family History Maternal Grandfather Substance use disorder Family history of problems with anesthesia: No Surgical History Surgical History Hx of cervical discectomy Hx of elbow surgery History of carpal tunnel surgery of right wrist History of dilatation and curettage Hx of colonoscopy History of Problems with Anesthesia: No Social History Social History Housing: House Are you a primary date night caregiver to a significant other at home: No Do you presently have visiting nurse or other home services: No Patient Tobacco Use Status: Never used Tobacco e-Cigarette/Vaping Use: Never Used Use of substances other than those prescribed or required for medical reasons: No Substance Use Type Other:: former use of marijuana edibles Have you been hit, kicked, punched, or otherwise hurt by someone within the past year? If so, by whom?: No Spiritual Healthcare Practices: no Caodaism Healthcare Practices: no Cultural Healthcare Practices: no Are you DNR?: No Advance Directives: Yes Advance Directives Information Provided: Yes Advance Directives on File: Yes Advance Directives Date on File: 02/04/25 FDLMP: n/a Poor oral hygiene: No (caps, crowns, implants) service: No Current occupational status: employed Cognitive needs: No Hearing needs: No Vision needs: Yes Meds Allergies Allergy/AdvReac Type Severity Reaction Status Date / Time azithromycin Allergy Mild Hives Verified 03/09/25 09:49 latex Allergy Mild Hives Verified 03/09/25 09:49 terbinafine Allergy Mild Hives Verified 03/09/25 09:49 Home Medications ?Medication ?Instructions ?Recorded ?Confirmed ?Last Taken ?Type albuterol sulfate 90 mcg/actuation 2 puff inhalation Q4H PRN 01/28/25 03/09/25 Unknown History aerosol inhaler Shortness Of Breath Or Wheezing fexofenadine 180 mg tablet 180 mg PO DAILY PRN allergic 01/28/25 03/09/25 Unknown History rhinitis fluticasone furoate 100 1 ea inhalation QAM 01/28/25 03/09/25 Unknown History mcg-vilanterol 25 mcg/dose inhalation powder (Breo Ellipta) levocetirizine 5 mg tablet (Xyzal) 5 mg PO BEDTIME 01/28/25 03/09/25 Unknown History melatonin 3 mg capsule 3 mg PO BEDTIME PRN Insomnia 01/28/25 03/09/25 Unknown History multivitamin (Daily Multi-Vitamin 1 tab PO BEDTIME 01/28/25 03/09/25 Unknown History tablet) pregabalin 75 mg capsule 75 mg PO BID 01/28/25 03/09/25 Unknown History semaglutide 0.25 mg or 0.5 mg (2 0.5 mg subcut QWEEK 01/28/25 03/09/25 02/27/25 History mg/3 mL) subcutaneous pen injector (Ozempic) simvastatin 10 mg tablet 10 mg PO BEDTIME 01/28/25 03/09/25 Unknown History fluticasone furoate 27.5 1 spray intranasal BEDTIME 02/04/25 03/09/25 Unknown History mcg/actuation nasal spray,suspension (Flonase Sensimist) losartan 50 mg tablet 50 mg PO BEDTIME 02/23/25 03/09/25 Unknown History Exam Height,Weight and Vital Signs: Height 5 ft 7 in Weight 77.564 kg Last Vital Signs Pulse 73 02/23/25 12:11 Resp 20 02/23/25 12:11 BP 118/61 02/23/25 12:11 Pulse Ox 98 02/23/25 12:11 O2 Del Method Room Air 02/23/25 12:11 Pertinent Lab Results Pertinent Lab Results: Laboratory Tests 02/06/25 08:33 WBC 6.3 Hgb 12.7 Hct 38.3 Plt Count 250 Sodium 142 Potassium 4.1 Chloride 105 Carbon Dioxide 29 BUN 19 H Creatinine 0.71 Lab Results 02/23/25 Range/Units 13:08 Blood Type B Positive Antibody Screen NEGATIVE Narrative Narrative: EKG 01/2025 Vent. Rate : 69 BPM Atrial Rate : 69 BPM P-R Int : 136 ms QRS Dur : 88 ms QT Int : 394 ms P-R-T Axes : 49 14 51 degrees QTcB Int : 422 ms Normal sinus rhythm Low voltage QRS Borderline ECG No previous ECGs available Airway Mallampati Class: III TM Dist: >3cm Neck ROM: Full Loose/Missing/Broken Teeth: No (Caps, crowns, implants throughout - none loose or broken) Heart: RRR Lungs: CTAB Assessment and Plan Assessment Anesthesia Assessment: Anesthesia Plan Discussed and PAT Visit Final Anesthetic Review Family History of Problems with Anesthesia: No History of Problems with Anesthesia: No Documented by User: Neto Lawson MD 03/09/25 16:35 [facility] Past Medical History Medical History Anesthesia complication Back pain Anxiety Cervical radiculopathy Dyslipidemia Lumbar spinal stenosis Carpal tunnel syndrome of right wrist Osteoarthritis Hypercholesterolemia Impaired fasting glucose Eczema of both hands Essential hypertension Allergic rhinitis Mild intermittent asthma Family History Family History Maternal Grandfather Substance use disorder Surgical History Surgical History Hx of cervical discectomy Hx of elbow surgery History of carpal tunnel surgery of right wrist History of dilatation and curettage Hx of colonoscopy Social History Social History Housing: House Are you a primary date night caregiver to a significant other at home: No Do you presently have visiting nurse or other home services: No Patient Tobacco Use Status: Never used Tobacco e-Cigarette/Vaping Use: Never Used Use of substances other than those prescribed or required for medical reasons: No Substance Use Type Other:: former use of marijuana edibles Have you been hit, kicked, punched, or otherwise hurt by someone within the past year? If so, by whom?: No Spiritual Healthcare Practices: no Caodaism Healthcare Practices: no Cultural Healthcare Practices: no Are you DNR?: No Advance Directives: Yes Advance Directives Information Provided: Yes Advance Directives on File: Yes Advance Directives Date on File: 02/04/25 FDLMP: n/a Poor oral hygiene: No (caps, crowns, implants) service: No Current occupational status: employed Cognitive needs: No Hearing needs: No Vision needs: Yes Meds Allergies Allergy/AdvReac Type Severity Reaction Status Date / Time azithromycin Allergy Mild Hives Verified 03/09/25 09:49 latex Allergy Mild Hives Verified 03/09/25 09:49 terbinafine Allergy Mild Hives Verified 03/09/25 09:49 Home Medications ?Medication ?Instructions ?Recorded ?Confirmed ?Last Taken ?Type albuterol sulfate 90 mcg/actuation 2 puff inhalation Q4H PRN 01/28/25 03/09/25 Unknown History aerosol inhaler Shortness Of Breath Or Wheezing fexofenadine 180 mg tablet 180 mg PO DAILY PRN allergic 01/28/25 03/09/25 Unknown History rhinitis fluticasone furoate 100 1 ea inhalation QAM 01/28/25 03/09/25 Unknown History mcg-vilanterol 25 mcg/dose inhalation powder (Breo Ellipta) levocetirizine 5 mg tablet (Xyzal) 5 mg PO BEDTIME 01/28/25 03/09/25 Unknown History melatonin 3 mg capsule 3 mg PO BEDTIME PRN Insomnia 01/28/25 03/09/25 Unknown History multivitamin (Daily Multi-Vitamin 1 tab PO BEDTIME 01/28/25 03/09/25 Unknown History tablet) pregabalin 75 mg capsule 75 mg PO BID 01/28/25 03/09/25 Unknown History semaglutide 0.25 mg or 0.5 mg (2 0.5 mg subcut QWEEK 01/28/25 03/09/25 02/27/25 History mg/3 mL) subcutaneous pen injector (Ozempic) simvastatin 10 mg tablet 10 mg PO BEDTIME 01/28/25 03/09/25 Unknown History fluticasone furoate 27.5 1 spray intranasal BEDTIME 02/04/25 03/09/25 Unknown History mcg/actuation nasal spray,suspension (Flonase Sensimist) losartan 50 mg tablet 50 mg PO BEDTIME 02/23/25 03/09/25 Unknown History Assessment and Plan Final Anesthetic Review NPO: Yes ASA Class: II Final Preanesthetic Review: No Changes in Pt Med Stat, Meds/Allgs Chart Reviewed, Consent Obtained/Reviewed and Anes Risks/Benef Reviewed Patient Risk: Low Procedure Risk: Low Anesthetic Plan Anesthetic Plan: GA Disposition: Standard PACU
[2025-03-09] VITALS (13 sets, daily range): BP systolic 98–128; BP diastolic 54–65; PULSE 54–72; RESP 16–18; TEMP 36.1–36.8; O2SAT 97–99; BMI 27.1
--- NOTE | ~2025-03-09 | FL_ITS ---
EXAMINATION: FL GUIDANCE ONLY HISTORY: L4-5 OLIF COMPARISON: Correlation is made with plain films of the lumbar spine dated 01/01/2025. TECHNIQUE: Fluoroscopy time: 1 minute, 12.4 seconds. Cumulative Dose: 64.679 mGy. DAP: 26.552 mGym2 Images: 3. FINDINGS: Fluoroscopic spot films demonstrate posterior fusion of L4 and L5 with pedicle screws, spinal stabilization rods, and an intervertebral spacer. FL/FL guidance in OR IMPRESSION: Fluoroscopy during procedure. Please see procedure report for additional information. Electronically signed by: Ivan Ewing MD 03/09/2025 02:15 PM EDT
--- NOTE | 2025-03-09 09:38 | MHC.SHP ---
Pre-Procedural Eval Section A - 24 Hr Update-Section A only Date of Service: 03/09/25 The patient is an INPATIENT: Yes Section B - Complete if H&P > 30 days Chief Complaint: Spondylolisthesis, lumbar region Details of Present Illness: Back pain Allergies: Allergies Allergy/AdvReac Type Severity Reaction Status Date / Time azithromycin Allergy Mild Hives Verified 02/12/25 09:19 latex Allergy Mild Hives Verified 02/12/25 09:19 terbinafine Allergy Mild Hives Verified 02/12/25 09:19 Review of Systems Sugical H&P ROS: Negative: Constitution, Cardiovascular, Respiratory, Neurological, Psychiatric, Hem-Onc, Allergic/Immunologic, Gastrointestinal, Genitourinary, Musculoskeletal, Integumentary, Endocrine and Eyes/Ears/Nose/Throat Exam Surgical H&P Exam: Normal: HEENT, Normal: Heart, Normal: Lungs, Normal: Extremities, Normal: Abdomen, Normal: Skin and Normal: Neurological (Wake, alert) Plan Diagnosis/Plan: Unchanged I have reviewed the history and physical and performed a pertinent physical examination on my patient. No changes have occurred unless specified. Oblique lumbar interbody fusion L4-5 Time Spent With Patient Time: Total time managing care of this patient today _ 6 ___ minutes.
[2025-03-09] MEDS: Lactated Ringers 1,000 ML 100 ML IVCONT (09:54)
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
--- OUTSIDE RECORDS SUMMARY | 2025-03-09 10:26 | XMS_ITS | Clinical Summary ---
Author Organization [facility] Address [address] [phone] Phone Care Team Providers Care Textile Examiner Name Role Phone Steven Taylor MD Primary Care Provider + Social History Tobacco Use Types Packs/Day Years [...] file Medical Devices Not on file Insurance [facility] PPO BLUE CROSS OUT OF STATE PPO BLUE CROSS OUT OF STATE PPO BLUE CROSS OUT OF [facility] PPO BLUE CROSS OUT OF STATE PPO [facility] OUT STATE PPO Care Teams Textile Examiner Relationship Specialty Start Date End Date Steven Taylor MD [address] [place] [address] PCP - General Internal Medicine 11/20/21 Additional Source Comments The information contained in this document represents components of the legal health record. It is not the complete legal health record.[facility]
--- NOTE | 2025-03-09 13:03 | W.PM.OPN ---
Operative Note Operative Note Date of Service: 03/09/25 Narrative: Preop Diagnosis: 1.) Lumbar spondylolisthesis 2.) Neurogenic claudication Procedure: 1) L4-5 discectomy, arthrodesis and implantation cage through an anterolateral, retroperitoneal approach 2) L4-5 posterior instrumented fusion 3) allograft 4) Injection of 10 cc of Exparel at the transverse process for a muscular erector spinae block and additional Exparel in paravertebral tissue for postop management Consent Informed Consent was obtained for this operation. I have explained the nature, purpose and benefits of the operation. I have discussed the risks and benefit of the operation including possible complications or adverse events with patient/family. Alternative(s) were discussed with the patient with their relative benefits and risks as well as the consequences of not accepting the operation were included in obtaining consent. Surgeon: ELEN SAGASTUME MD, PHD Procedure Assisted By: gayle Williamson Description of Procedure This 59-year-old female is suffering from back pain neurogenic claudication symptoms due to a grade 2 L4-5 spondylolisthesis with associated spinal stenosis. The patient was offered an oblique lumbar interbody fusion L4-5. The procedure and complications were explained. The patient was consented. The patient was brought to the operating room and endotracheally intubated. The patient was turned in a lateral position with the left side up. Prep and drape was done followed by timeout. A small incision was made in the left lower abdominal quadrant. The muscle fascia was opened after which the 3 muscle layer was split to enter the retroperitoneal space. Dilators were docked in the anterior one third of the L4-5 disc space followed by a retractor. The retractor was opened. The L4-5 disc space was exposed. An annulotomy was done after which an elevator Tobias was used to release the disc material from its endplates and to perforate the contralateral side. A partial discectomy was done. An 8 mm and 12 mm with 6 degree lordosis height trial implant was inserted. The discectomy was completed. The endplates were prepared. An 12 x 50 mm with 6 degree lordosis 4 web cage filled with allograft was inserted into the disc space under fluoroscopic guidance. This resulted in reduction of the spondylolisthesis and indirect decompression of the nervous structures.. The retractor was removed. Hemostasis was done. The incision was closed in 2 layers. Steri-Strips used to approximate incision. An OpSite with Tegaderm was used to cover the incision. This marked first part of the procedure. The patient was turned prone on the Roman spine table. 2C arms were installed for fluoroscopy. Prep and drape was done followed by a second timeout. Injection of 10 cc of Exparel at the bilateral L4 transverse processi for a muscular erector spinae block. Two paramedian incisions were made lateral from the L4 and L5 pedicles. The muscle fascia was opened after which the muscle layer was split bluntly to expose the posterolateral gutter. The following steps were taken. A pediguard tap was used to create a transpedicular trajectory into the vertebral body. A K wire was placed. A specially designed instrument was advanced over the K wire to decorticate the posterolateral gutter in preparation for the posterolateral fusion. A pedicle screw was advanced over the K wire and the K wire was removed. The steps were done for the bilateral L4 and L5 pedicles. A total of 4 screws were placed with a diameter of 6.5 x 45 mm. Pedicle screws were connected with 45 mm liana bilaterally and locked down with locking caps, which finalized the reduction of the spondylolisthesis.. The extension towers were removed. The posterolateral gutter was filled with allograft to complete the posterolateral L4-5 fusion Hemostasis was done and the incision was closed in 2 layers. Steri-Strips were used to approximate the incision. An OpSite with tegaderm was used to cover the incision. All sponge and needle counts were correct. Patient was extubated and transferred in stable is to recovery room. Anesthesia: General Estimated Blood Loss (ml): 30 Duration of Surgery: 2 hours Complications: None Postoperative Plan: Admit to inpatient for clinical observation
--- NOTE | 2025-03-09 14:25 | PHA.MEDREC ---
Pharmacy Consult ? Medication Reconciliation Pharmacy has reviewed the medication reconciliation completed by nursing.
[2025-03-09] MEDS: oxyCODONE HCl Immed Release 5 MG TABLET 10 MG PO (23:14)
[2025-03-10 05:58] VITALS: BP 103/60; PULSE 65; RESP 18; TEMP 36.4; O2SAT 95
[2025-03-10] MEDS: oxyCODONE HCl Immed Release 5 MG TABLET 10 MG PO (06:17)
--- NOTE | 2025-03-10 07:08 | HO.NEURO.PN ---
Neurosurgery Operative Note Date of Service: 03/10/25 Narrative: Procedure: L4-5 OLIF POD: 1 Stephanie is a pleasant 59-year-old female who underwent L4-[address] Salazar yesterday. She reports that overall her pain in his very much so improved since her surgery. She is very satisfied with the procedure. She reports that she has been up out of bed, walking around the unit. She has ambulated independently to the bathroom. She is tolerating her current diet. She does report some low back pain with movement but it is well controlled with current pain regimen. Vital signs stable, afebrile No new neurological deficits. The patient has full 5/5 strength in her bilateral lower extremities. Posterior and lateral incision sites are closed and well healed. Pleasant 59-year-old female who underwent L4-[address] Salazar yesterday. She is progressing as expected. She was evaluated alongside the attending neurosurgeon Dr. Salazar this morning who has medically cleared her for DC home today. I will send in an Rx for Oxycodone to the pharmacy here at [facility] [place]. Haroon Salazar MD,PhD [facility]
[2025-03-10 07:17] VITALS: BP 119/53; PULSE 71; RESP 14; TEMP 36.1; O2SAT 98
--- NOTE | 2025-03-10 07:43 | P.DS_ITS ---
DS: Providers Provider Date of Service: 03/10/25 Date of admission: 03/09/25 09:42 Date of discharge: 03/10/25 Primary care physician: Jeannine Vera MD DS: Summary Time Attestation Discharge Coordination Time (in mins): 12 Quality: Safe Use of Opioids Does Pt have an Active Cancer Diagnosis on the Problem List?: No Quality: Stroke Does the patient have a stroke diagnosis?: No Physical Exam Vital Signs: Vital Signs: Last Vital Signs Temp 97.0 F 03/10/25 07:17 Pulse 71 03/10/25 07:17 Resp 14 03/10/25 07:17 BP 119/53 L 03/10/25 07:17 Pulse Ox 98 03/10/25 07:17 O2 Del Method Room Air 03/10/25 07:17 O2 Flow Rate 2 03/09/25 16:00 BMI result Body Mass Index 27.1 Discharge Plan Discharge Anticipated Discharge Date/Time: 03/10/25 07:43 Patient Disposition: Home, Self-Care Discharge Diagnosis: s/p L4-5 OLIF Referrals: Jeannine Vera MD [Primary Care Provider, Internal Medicine] - 1 Week Discharge Medications: New oxycodone 5 mg tablet See Rx Instructions .ROUTE .COMPLEX PRN (Reason: pain) Qty: 30 0RF Rx Instructions: Take 1-2 tablets by mouth every 4 hours; Partial Fill upon patient request. Continued losartan 50 mg tablet 50 mg PO BEDTIME Flonase Sensimist 27.5 mcg/actuation spray,suspension 1 spray intranasal BEDTIME Rx Instructions: into each nostril multivitamin [Daily Multi-Vitamin] Tablet 1 tab PO BEDTIME simvastatin 10 mg tablet 10 mg PO BEDTIME fexofenadine 180 mg tablet 180 mg PO DAILY PRN (Reason: allergic rhinitis) albuterol sulfate 90 mcg/actuation HFA aerosol inhaler 2 puff inhalation Q4H PRN (Reason: Shortness Of Breath Or Wheezing) pregabalin 75 mg capsule 75 mg PO BID levocetirizine [Xyzal] 5 mg tablet 5 mg PO BEDTIME fluticasone furoate-vilanterol [Breo Ellipta] 100-25 mcg/dose blister with device 1 ea inhalation QAM melatonin 3 mg capsule 3 mg PO BEDTIME PRN (Reason: Insomnia) Ozempic 0.25 mg or 0.5 mg (2 mg/3 mL) pen injector 0.5 mg subcut QWEEK Rx Instructions: takes on Saturdays Discharge Orders: Discharge Order (Routine); Ordered 03/10/25 Ordered By: Haroon Armstrong Diet: Advance to usual diet Activity on Discharge: As tolerated Stand Alone Forms: Patient Portal Discharge page Print Language: Chinese Activity Restrictions/Additional Instructions: After your spinal surgery we ask you to observe the following restrictions/guidelines: Activity: It is normal to feel some discomfort as you increase your activity, but that will improve with time. We ask you avoid heavy lifting or acitivities that cause pain. As a general rule, 8lbs is a safe limit for lifting right after surgery. Walk as much as you feel comfortable but not to exhaustion. You will feel extra tired the first few days after surgery. Stay well hydrated. It is OK to walk up and down stairs You may return to driving when you are off narcotics (such as vicodin, oxycodon e, dilaudid, etc), and you are back to normal functional capacity. If you have any concerns please check with office before driving. Return to work is specific to each patient and each surgery, so please speak with your doctor/PA at first follow up. Please bring paperwork such as FMLA at that time if you need it filled out. Medications: We recommend you take 1,000mg Tylenol every 8 hours for the first few weeks after surgery, if you do not have any liver issues and can tolerate this medication. Do not exceed 4,000mg daily. We will give you a short supply of narcotics after surgery (usually one weeks worth). If you need more please call the office but do not use more than prescribed. You will need to give our office 48 hours notice if you need narcotics refilled and we do not fill narcotics on weekends or evenings. If you are on a narcotic, it is a good idea to take a stool softener such as colace or senna to avoid constipation If you take blood thinner such as aspirin, Plavix, Coumadin, Effient, Eliquis etc for conditions such as Afib, DVT, Pulmonary embolus, coronary disease, stents etc please speak with your surgeon about specific details as to when you can resume these medications. You can resume NSAIDs on post op day 1 (eg: Motrin, Naproxen, etc). Follow up: Please call the office, , after surgery to arrange a 3 week follow up for wound check. Wound Care: You may remove your dressing on the first day after surgery. ?You may ?leave open to air. Please do not remove the steri strips underneath. they will fall off on their own in one week. IT IS NORMAL FOR THE WOUND TO OOZE OR BE BLOODY FOR A FEW DAYS AFTER SURGERY. ?IF THIS HAPPENS JUST PLACE NEW DRESSING OVER IT TO AVOID STAINING CLOTHES. You may shower on post op day # 1 We ask that you do not let the water soak the wound. If it does get wet, just towel dry lightly. Please do not scrub your incision or place any type of chemical/ointment on the wound. No tub baths, pools or jacuzzis for one month. If you have any leaking or redness from your wound, or fevers, please call the office. Care Plan Goals: Return to normal activity as tolerated Health Concerns: None Plan of Treatment: Follow-up in clinic in 2-3 weeks Assessment: Procedure: L4-5 OLIF POD: 1 Stephanie is a pleasant 59-year-old female who underwent L4-[address] Salazar yesterday. She reports that overall her pain in his very much so improved since her surgery. She is very satisfied with the procedure. She reports that she has been up out of bed, walking around the unit. She has ambulated independently to the bathroom. She is tolerating her current diet. She does report some low back pain with movement but it is well controlled with current pain regimen. Vital signs stable, afebrile No new neurological deficits. The patient has full 5/5 strength in her bilateral lower extremities. Posterior and lateral incision sites are closed and well healed. Pleasant 59-year-old female who underwent L4-[address] Salazar yesterday. She is progressing as expected. She was evaluated alongside the attending neurosurgeon Dr. Salazar this morning who has medically cleared her for DC home today. I will send in an Rx for Oxycodone to the pharmacy here at [facility] [place]. Haroon Salazar MD,PhD [facility]
[2025-03-10] MEDS: Fluticasone/Vilanterol 100/25 BLST.W.DEV 1 PUFF INHALE (08:17)
[2025-03-10 08:18] VITALS: PULSE 71; RESP 14; O2SAT 97
--- NOTE | 2025-03-10 08:41 | MHC.CM.PN ---
pt dcd home self care prior to being seen by cm
[2025-03-10 09:45] VITALS: BP 98/53; PULSE 68; RESP 16; TEMP 36.3; O2SAT 97
--- NOTE | 2025-03-10 09:47 | MHC.CM.PN ---
PT DCD HOME SELF CARE PRIOR TO BEING SEEN BY CM
--- NOTE | 2025-03-10 10:02 | HO.POSTANES ---
Post Anesthesia Evaluation Post Anesthesia Evaluation Date of Service: 03/10/25 Vital Signs: Vital Signs Temp Pulse Resp BP Pulse Ox O2 Del Method 03/10/25 09:45 97.4 F 68 16 98/53 L 97 Room Air 03/10/25 08:18 71 14 03/10/25 07:17 97.0 F 71 14 119/53 L 98 Room Air 03/10/25 05:58 97.5 F 65 18 103/60 95 Room Air 03/09/25 23:49 97.6 F 65 18 111/60 98 Room Air Anesthesia: General Mental Status: Awake Pain Control: Satisfactory Nausea/Vomiting: None Hydration: Adequate Anesthesia-Related Issues: No Anes. Related Issues
== END 2025-03-10 10:02 | disposition home or self-care (01) | DRG 304 ==
LOC: HO.SSSA 10:35 → HO.S3 15:48
PROVIDERS: Neurological Surgery; Admitting Provider Physician Assistant; PCP Internal Medicine; Visit Provider Physician Assistant
PROC: 0SG00A0 Fusion of Lumbar Vertebral Joint with Interbody Fusion Device, Anterior Approach, Anterior Column, Open Approach (ICD-10-PCS; principal; 2025-03-09 11:10)
DX: M48.062 Spinal stenosis, lumbar region with neurogenic claudication (principal); J45.20 Mild intermittent asthma, uncomplicated; M43.16 Spondylolisthesis, lumbar region; Z79.51 Long term (current) use of inhaled steroids; Z79.899 Other long term (current) drug therapy
CPT/HCPCS: 86850; 86900; 86901; 93005; 94640; 97161; C1713; J0131; J0665; J0666; J0690; J1100; J1171; J1885; J2003; J2371; J2405; J2704; J3010; L8699

== ENCOUNTER → 2025-03-09 09:42 | Outpatient (BNV) | payer BC, SELFPAY | PROVIDERS: Admitting Provider Physician Assistant; PCP Internal Medicine; Visit Provider Neurological Surgery | DX: M48.062 Spinal stenosis, lumbar region with neurogenic claudication (principal); M43.16 Spondylolisthesis, lumbar region | CPT/HCPCS: 20930; 22558; 22612; 22840; 22853; 99024; 99499 ==

== ENCOUNTER 2025-03-11 05:10 | Emergency (ER) | payer BC, SELFPAY ==
--- NOTE | ~2025-03-11 | XR_ITS ---
EXAMINATION: XR LUMBOSACRAL SPINE CLINICAL INFORMATION: s/p fall has hardware in place COMPARISON: January 01, 2025 TECHNIQUE: AP and lateral views FINDINGS: Bilateral, trans pedicle screws at L4 and L5. Intervertebral disc spacer at L4-5. Multilevel marginal osteophyte formation and endplate sclerosis and 20-30% volume loss of the vertebral bodies in the lower thoracic spine. Small marginal osteophyte formation in the vertebral bodies of the lumbar spine. Grade 1 anterolisthesis L4-5, stable. S-shaped curvature of the thoracolumbar spine with an apex at L2-3. No acute cortical disruption. No lytic or blastic lesions. Osteopenia versus osteoporosis. Sclerosis and the sacroiliac joints, bilaterally. XR/XR lumbar spine 2-3V IMPRESSION: No acute fracture. Status post posterior lumbar fusion and arthrodesis L4-5 with stable grade 1 anterolisthesis. Electronically signed by: Dong Finney MD 03/11/2025 08:11 AM EDT
[2025-03-11 05:18] VITALS: BP 110/70; BP 124/47; PULSE 76; PULSE 77; RESP 18; TEMP 37; O2SAT 96; O2SAT 97; BMI 27.6
--- NOTE | 2025-03-11 05:34 | PC.NURSE ---
pt denies hearing any pop during fall
[2025-03-11 06:00] VITALS: BP 127/53; PULSE 72; TEMP 36.8; O2SAT 99
--- NOTE | 2025-03-11 06:08 | ECG_ITS ---
Test Reason : FALL Blood Pressure : */* mmHG Vent. Rate : 69 BPM Atrial Rate : 69 BPM P-R Int : 154 ms QRS Dur : 84 ms QT Int : 382 ms P-R-T Axes : 68 68 56 degrees QTcB Int : 409 ms Normal sinus rhythm Normal ECG When compared with ECG of 23-Feb-2025 12:50, No significant change was found Referred By: Elisa Sanches Electronically Signed By: Boni Bentley
[2025-03-11 06:39] LABS: MANUAL DIFF FLAG NO
[2025-03-11 06:41] LABS: Hematocrit 31.5 % (37.0-47.0); Hemoglobin 10.4 g/dl (12.0-16.0); Imm Gran Abs Auto 0.04 X10*3/uL (0.00-0.03); Imm Gran Pct Auto 0.3 % (0.0-0.4); Lymphocytes Absolute Auto 1.3 X10*3/uL (1.2-4.9); Mean Corpuscular HGB Conc 33.0 g/dl (31.0-35.0); Mean Corpuscular Hemoglobin 29.2 pg (27.0-33.0); Mean Corpuscular Volume 88.5 fL (80.0-98.0); NRBC Abs Auto 0.000 X10*3/uL (0.0-0.012); NRBC Pct Auto 0.0 /100WBC (0.0-0.2); Platelet Count 205 X10*3/uL (160-400); Red Blood Count 3.56 X10*6/uL (4.20-5.50); White Blood Count 11.8 X10*3/uL (4.8-10.8)
[2025-03-11 06:55] LABS: Alanine Aminotransferase 22 U/L (0-31); Albumin Level 4.0 g/dL (3.5-5.0); Alkaline Phosphatase 47 U/L (39-117); Anion Gap 12 (12-20); Aspartate Amino Transferase 42 U/L (5-31); Blood Urea Nitrogen 15 mg/dL (9-16); Calcium 9.0 mg/dL (8.4-10.2); Carbon Dioxide 27 mmol/L (22-29); Chloride 107 mmol/L (96-108); Creatinine Clr Calc Pharmacy 87.8; Estimated Glomerular Filt Rate > 60; Potassium 5.2 mmol/L (3.3-5.1); Sodium 141 mmol/L (135-145); Total Protein 6.1 g/dL (6.5-8.0)
[2025-03-11 07:13] LABS: Troponin-I High Sensitivity < 2.7 ng/L (<3.5-17.0)
--- NOTE | 2025-03-11 07:31 | ED_ITS ---
HPI - Fall General Chief Complaint: Fall Stated Complaint: fakk Time Seen by Provider: 03/11/25 06:50 Source: patient, family, EMS and old records reviewed Mode of arrival: EMS Limitations: no limitations History of Present Illness ED Provider: OSBALDO PHAN Narrative: 59 yo female with PMH of asthma, HTN, arthritis, HLD, anxiety, s/p surgery on 03/09 with [facility] sent home with oxycodone. She had L4-5 discectomy, arthrodesis and implantation cage through an anterolateral, retroperitoneal approach, L4-5 posterior instrumented fusion. She feels a little loopy from the oxycodone. She notes no fevers, n/v. She has been able to rest. She got up to let her dog out with a walker and heard ringing in then felt she was going to pass out. She maneuvered herself so she landed on case of water. No LOC did not hit back/head/neck. She was able to get up. She had no head strike. 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 She thinks her meds are making her loopy. She is scared she did something to her back though she has no more increased baseline pain. complaint: fall Onset (ago): minute(s) (HOSPITAL MEDICINE DIRECTOR) Fall from: standing Fall witnessed: no Place fall occurred: home Loss of consciousness: none Prolonged down time: no Symptoms prior to fall: lightheadedness and dizziness Location of injury: other (denies headstrike or LOC no trauma just worried post surgery) Severity: moderate Quality: aching Associated symptoms (after fall): denies Related Data Home Medications ?Medication ?Instructions ?Recorded ?Confirmed albuterol sulfate 90 mcg/actuation 2 puff inhalation Q 4H PRN 01/28/25 03/09/25 aerosol inhaler Shortness Of Breath Or Wheez ing fexofenadine 180 mg tablet 180 mg PO DAILY PRN allergi c 01/28/25 03/09/25 rhinitis fluticasone furoate 100 1 ea inhalation QAM 01/28/25 03/09/25 mcg-vilanterol 25 mcg/dose inhalation powder (Breo Ellipta) levocetirizine 5 mg tablet (Xyzal) 5 mg PO BEDTIME 10/2003/09/25 melatonin 3 mg capsule 3 mg PO BEDTIME PRN Insomnia 01/28/25 03/09/25 multivitamin (Daily Multi-Vitamin 1 tab PO BEDTIME 10/2003/09/25 tablet) pregabalin 75 mg capsule 75 mg PO BID 01/28/25 semaglutide 0.25 mg or 0.5 mg (2 0.5 mg subcut QWEEK 0 01/28/25 03/09/25 mg/3 mL) subcutaneous pen injector (Ozempic) simvastatin 10 mg tablet 10 mg PO BEDTIME 01/28/25 fluticasone furoate 27.5 1 spray intranasal BEDTIME 0 02/04/25 03/09/25 mcg/actuation nasal spray,suspension (Flonase Sensimist) losartan 50 mg tablet 50 mg PO BEDTIME 02/23/25 Previous Rx's ?Medication ?Instructions ?Recorded oxycodone 5 mg tablet See Rx Instructions .Route 0 03/10/25 .COMPLEX PRN pain #30 tabs Allergies Allergy/AdvReac Type Severity Reaction Status Date / Time azithromycin Allergy Mild Hives Verified 03/11/25 05:21 latex Allergy Mild Hives Verified 03/11/25 05:21 terbinafine Allergy Mild Hives Verified 03/11/25 05:21 Review of Systems 2 Review of Systems: Constitutional : No Weight loss, No Fever, No Chills, ENT/Mouth : No Hearing loss, No Ear Pain, No Nasal Congestion, No Sinus Pain, No Hoarseness, No sore throat, No Rhinorrhea, No Swallowing Difficulty Cardiovascular : No Chest Pain, No SOB Respiratory : No Cough, No Dyspnea Gastrointestinal : No Nausea, No Vomiting, No Diarrhea, No abdominal Pain, No Hematochezia, No Melena Genitourinary : No Dysuria, No Urinary Frequency, No Hematuria, No Urinary Incontinence, Musculoskeletal : positive back pain Skin : No Skin Lesions, No rash Neuro : No Weakness, No Numbness, No Paresthesias, no loss of bowel or bladder incontinence, no saddle anesthesia, pos dizziness Yes all other systems are reviewed and are negative COUNT INCLUDES THE [facility] Past Medical History Attestation statement: The following information was validated with the patient. Source: old records reviewed Medical History Anesthesia complication Back pain Anxiety Cervical radiculopathy Dyslipidemia Lumbar spinal stenosis Carpal tunnel syndrome of right wrist Osteoarthritis Hypercholesterolemia Impaired fasting glucose Eczema of both hands Essential hypertension Allergic rhinitis Mild intermittent asthma Surgical History Hx of cervical discectomy Hx of elbow surgery History of carpal tunnel surgery of right wrist History of dilatation and curettage Hx of colonoscopy Family History Family History Maternal Grandfather Substance use disorder Social History Social History Household Members: None Housing: House Are you a primary health care / medical job titles to a significant other at home: No Do you presently have visiting nurse or other home services: No Patient Tobacco Use Status: Never used Tobacco Smoked in Last 30 Days: No e-Cigarette/Vaping Use: Never Used Use of substances other than those prescribed or required for medical reasons: No Advance Directives: Yes Advance Directives on File: Yes Advance Directives Date on File: 02/04/25 Do you have a plan to hurt others: No Plan Patient : No service: No Current occupational status: employed Cognitive needs: No Hearing needs: No Vision needs: Yes Physical Exam 2 Vital Signs: Vital Signs: Last Vital Signs Temp 98.0 F 03/11/25 08:00 Pulse 80 03/11/25 08:00 Resp 18 03/11/25 08:00 BP 124/62 03/11/25 08:00 Pulse Ox 96 03/11/25 08:00 O2 Del Method Room Air 03/11/25 08:00 BMI result Body Mass Index 27.6 Appearance: Alert. Oriented X3. No acute distress. Eyes: Pupils equal, round and reactive to light. ENT: Pharynx normal. Neck: Normal inspection. Neck supple. CVS: Normal heart rate and rhythm. Pulses normal. Respiratory: No respiratory distress. Breath sounds normal. Abdomen: Soft and nontender. Back: no midline ttp and her surgical sites are c/d/i. Skin: Skin warm and dry. Normal skin color. Normal skin turgor. Extremities: No lower extremity edema. No calf ttp Neuro: Oriented X 3. No motor deficit. No sensory deficit. CN2-12 intact L5/5 bilaterally in lower legs SILT intact Medications Administered Discontinued Medications Generic Name Dose Route Start Last Admin Trade Name Akash PRN Reason Stop Dose Admin Hydromorphone HCl 0.5 mg 03/11/25 07:24 03/11/25 08:19 Hydromorphone Hcl 0.5 Mg/0.5 Ml Syringe IVPUSH 03/11/25 07:25 0.5 mg ONCE ONE Administration Protocol Lactated Ringer's 1,000 mls @ 999 mls/hr 03/11/25 07:23 03/11/25 08:19 Lr IV 03/11/25 08:23 999 mls/hr .Q1H1M ONE Administration Medical Decision Making Medical Decision Making MDM Narrative: 59 yo female with PMH of asthma, HTN, arthritis, HLD, anxiety, s/p surgery on 03/09 with [facility] L4-5 discectomy, arthrodesis and implantation cage sent home with oxycodone now here s/p feeling she would pass out - no CP/SOB no GIB symptoms has been eating and drinking well. She notes she feels a little loopy with the oxycodone. At this time her symptoms seem more post surgery and not cardiac or VTE she has no hypoxia, tachycardia, CP/SOB and no signs of DVT. Will obtain basic labs and hydrate with pain control. Xray ordered for hardware eval. Differential Diagnosis Differential Diagnoses: The differential diagnosis associated with the presentation includes anemia, dehydration, medication reaction Admission/Observation Consideration of admission/observation: Escalation of care including admission/observation considered feels much better xray and labs reassuring VS reassuring steady with walker Lab Data [facility] Lab Attestation statement: I reviewed the patient's lab results. 03/11/25 06:34 03/11/25 06:34 Labs: Lab Results 03/11/25 Range/Units 06:34 WBC 11.8 H (4.8-10.8) X10*3/uL RBC 3.56 L (4.20-5.50) X10*6/uL Hgb 10.4 L (12.0-16.0) g/dl Hct 31.5 L (37.0-47.0) % MCV 88.5 (80.0-98.0) fL MCH 29.2 (27.0-33.0) pg MCHC 33.0 (31.0-35.0) g/dl RDW 13.2 (11.0-16.0) % Plt Count 205 (160-400) X10*3/uL MPV 10.0 (9.4-12.3) fL Immature Gran % (Auto) 0.3 (0.0-0.4) % Neut % (Auto) 80.0 H (45-73) % Lymph % (Auto) 10.6 L (20-40) % Pitkin % (Auto) 8.3 (2-11) % Eos % (Auto) 0.5 (0-4) % Baso % (Auto) 0.3 (0-2) % Lymph # (Auto) 1.3 (1.2-4.9) X10*3/uL Pitkin # (Auto) 1.0 (0.1-1.2) X10*3/uL Eos # (Auto) 0.1 (0.0-0.4) X10*3/uL Baso # (Auto) 0.0 (0.0-0.2) X10*3/uL Abs Immat Gran (auto) 0.04 H (0.00-0.03) X10*3/uL Absolute Neuts (auto) 9.5 H (2.0-8.3) x10*3/uL Absolute Nucleated RBC 0.000 (0.0-0.012) X10*3/uL Nucleated RBC % (auto) 0.0 (0.0-0.2) /100WBC Sodium 141 (135-145) mmol/L Potassium 5.2 H D (3.3-5.1) mmol/L Chloride 107 (96-108) mmol/L Carbon Dioxide 27 (22-29) mmol/L Anion Gap 12 (12-20) BUN 15 (9-16) mg/dL Creatinine 0.75 (0.5-1.4) mg/dL Estim Creat Clear Calc 87.8 Estimated GFR > 60 Random Glucose 109 (60-115) mg/dL Calcium 9.0 D (8.4-10.2) mg/dL Total Bilirubin 0.5 (0.0-1.0) mg/dL AST 42 H (5-31) U/L ALT 22 (0-31) U/L Alkaline Phosphatase 47 (39-117) U/L Troponin I High Sens < 2.7 (<3.5-17.0) ng/L Total Protein 6.1 L (6.5-8.0) g/dL Albumin 4.0 (3.5-5.0) g/dL Independent Interpretation I performed an independent interpretation of an: EKG and Plain X-Ray (stable hardware) Interpretation: Rate: 70 Rhythm: NSR Avery: normal Normal P waves. Normal ANTONIO. Normal QRS complex. ST T wave : flat t waves aVL, no SAMARIA qTC: 451 prior studies: no acute ischemia The study has been interpreted contemporaneously by me. . Radiology Impression Discussion of test interpretation with radiology: I have reviewed the radiologist's reading. Independent Historian Clinical information obtained from an independent historian. History obtained from or confirmed by: [facility] EMS External Record Review External record reviewed: Outpatient record Discharge Plan Discharge Clinical Impression: Dizziness Patient Disposition: Home, Self-Care Instructions: Dizziness (ED) Additional Instructions: vital signs reassuring slight drop in hemoglobin this is expected after surgery very minor can repeat with your doctor in one week your electrolytes are normal be careful with your pain medications. make sure you are taking it easy and use your walker return for any other worsening symptoms or concerns. FINDINGS: Bilateral, trans pedicle screws at L4 and L5. Intervertebral disc spacer at L4-5. Multilevel marginal osteophyte formation and endplate sclerosis and 20-30% volume loss of the vertebral bodies in the lower thoracic spine. Small marginal osteophyte formation in the vertebral bodies of the lumbar spine. Grade 1 anterolisthesis L4-5, stable. S-shaped curvature of the thoracolumbar spine with an apex at L2-3. No acute cortical disruption. No lytic or blastic lesions. Osteopenia versus osteoporosis. Sclerosis and the sacroiliac joints, bilaterally. XR/XR lumbar spine 2-3V IMPRESSION: No acute fracture. Status post posterior lumbar fusion and arthrodesis L4-5 with stable grade 1 anterolisthesis. Prescriptions: No Action losartan 50 mg tablet 50 mg PO BEDTIME oxycodone 5 mg tablet See Rx Instructions .ROUTE .COMPLEX PRN (Reason: pain) Qty: 30 0RF Rx Instructions: Take 1-2 tablets by mouth every 4 hours; Partial Fill upon patient request. Flonase Sensimist 27.5 mcg/actuation spray,suspension 1 spray intranasal BEDTIME Rx Instructions: into each nostril multivitamin [Daily Multi-Vitamin] Tablet 1 tab PO BEDTIME simvastatin 10 mg tablet 10 mg PO BEDTIME fexofenadine 180 mg tablet 180 mg PO DAILY PRN (Reason: allergic rhinitis) albuterol sulfate 90 mcg/actuation HFA aerosol inhaler 2 puff inhalation Q4H PRN (Reason: Shortness Of Breath Or Wheezing) pregabalin 75 mg capsule 75 mg PO BID levocetirizine [Xyzal] 5 mg tablet 5 mg PO BEDTIME fluticasone furoate-vilanterol [Breo Ellipta] 100-25 mcg/dose blister with device 1 ea inhalation QAM melatonin 3 mg capsule 3 mg PO BEDTIME PRN (Reason: Insomnia) Ozempic 0.25 mg or 0.5 mg (2 mg/3 mL) pen injector 0.5 mg subcut QWEEK Rx Instructions: takes on Saturdays Print Language: Burkinan
[2025-03-11 08:00] VITALS: BP 124/62; PULSE 80; RESP 18; TEMP 36.7; O2SAT 96
[2025-03-11] MEDS: Lactated Ringers 1,000 ML 999 ML IV (08:19)
[2025-03-11 10:04] VITALS: BP 124/69; PULSE 70; RESP 16; O2SAT 99
--- NOTE | 2025-03-11 10:13 | PC.NURSE ---
Pt ambulatory with a steady gait around unit with RN. Denies any dizziness/lightheadedness.
[2025-03-11 10:17] VITALS: BP 124/69; PULSE 70; RESP 16; TEMP 36.7; O2SAT 99
== END 2025-03-11 10:17 | disposition home or self-care (01) ==
PROVIDERS: Emergency Medicine; Emergency Provider Emergency Medicine
DX: R42 Dizziness and giddiness (principal); I10 Essential (primary) hypertension; E78.5 Hyperlipidemia, unspecified; Z91.81 History of falling
CPT/HCPCS: 36415; 72100; 80053; 84484; 85025; 93005; 96361; 96374; 99284; 99285; J1171; J7120

== ENCOUNTER → 2025-03-11 06:08 | Outpatient (BNV) | payer BC, SELFPAY | PROVIDERS: Emergency Provider Emergency Medicine; Visit Provider Internal Medicine Cardiovascular Disease | DX: Z13.6 Encounter for screening for cardiovascular disorders (principal); W19.XXXA Unspecified fall, initial encounter | CPT/HCPCS: 93010 ==

== ENCOUNTER → 2025-03-11 07:23 | Outpatient (BNV) | payer BC, SELFPAY | PROVIDERS: Emergency Provider Emergency Medicine; Visit Provider Radiology Diagnostic Radiology | DX: Z04.3 Encounter for examination and observation following other accident (principal) | CPT/HCPCS: 72100 ==

== ENCOUNTER 2025-03-31 12:33 | Outpatient (AMB) | payer BC, SELFPAY ==
--- OUTSIDE RECORDS SUMMARY | 2024-10-21 04:00 | XMS_ITS ---
Author Organization [facility] Address [address] [place] [address] Care Team Providers Care Concrete Polisher Name Role Phone Brandon HUBBARD, Steven Primary Care Provider Roseline Moya [phone] Encounters Encounter Location Date Provider Diagnosis [address] [address] 10/21/2024 Roseline Carreno Plan Of Treatment No Information Progress Notes * Stephanie MEDINA ADOB: [birth year] (60 yo F)Acc No.[id number]:10/21/2024 Progress Notes Patient: Stephanie SHAH Provider: Dannielle Carreno DPM :1965 A ge:59 Y S ex:Female Date:10/21/2024 Address:[address] [place], [place] [id number] Pcp:Steven Taylor MD Subjective: * Chief Complaints: * * Medical History: Objective: * Vitals: Assessment: Plan: * Treatment: * Images: * The named appointment provid er may or may not be the originator of this progress note, and it is not deemed complete until electronically signed by the appointment provider. Sign off status: Pending * Provider: Dannielle Carreno DPM Date: 10/21/2024 Generated for Printi ng/Faxing/eTransmitting on: 0 03/31/2025 02:59 PM EDT
--- NOTE | 2025-03-31 13:03 | A.SPINEOV_ITS ---
Intake Visit Reasons: 1st post op Intake Note: Ms. Medina is here today for her 1st post op. 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 Salazar. Code(s): M48.061 - Spinal stenosis, lumbar region without neurogenic claudication Category: Medical Plan Mrs Cassy stevens is here in follow-up. She is 3 weeks out from her L4-5 oblique lumbar interbody fusion. She is doing excellent. Her right leg pain is gone. She has resumed most of her normal activities with the exception of things requiring bending lifting twisting as outlined in our preoperative instructions. I gave her a note to return to remote work. I will see her back in 6 weeks with a set of x-rays. Victor Manuel Salazar MD, PhD [facility] Orders: Orders XR lumbar spine 4V min Today M48.061 - Spinal stenosis, lumbar region without neurogenic claudication Coding Level of Care Code Global (18603) Diagnoses Lumbar spinal stenosis M48.061
--- OUTSIDE RECORDS SUMMARY | 2025-03-31 15:00 | XMS_ITS | Clinical Summary ---
Author Organization [facility] Address [address] [phone] Phone Care Team Providers Care Publications Sales Representative Name Role Phone Steven Taylor MD Primary [...] file Medical Devices Not on file Insurance [facility] PPO BLUE CROSS OUT OF STATE PPO BLUE CROSS OUT OF STATE PPO BLUE CROSS OUT OF [facility] PPO BLUE CROSS OUT OF STATE PPO [facility] OUT STATE PPO Care Teams Publications Sales Representative Relationship Specialty Start Date End Date Steven Taylor MD [address] [place] [address] PCP - General Internal Medicine 11/20/21 Additional Source Comments The information contained in this document represents components of the legal health record. It is not the complete legal health record.[facility]
--- OUTSIDE RECORDS SUMMARY | 2025-03-31 15:00 | XMS_ITS | Patient Health Record ---
Author Organization [facility] Address [address] [place] [address] Care Team Providers Care Soaking Room Operator Name Role Phone Steven Taylor MD Primary Care Provider Unavail able Roseline Carreno Unavailable [phone] Allergies Allergen (clinical drug ingredient) Drug/Non Drug [...] Problem Acquired hammer toe of right foot (4418112602383924) Other hammer toe(s) (acquired), right foot (M20.41) Active confirmed Problem Acquired hammer toe of left foot (7903380329552694) Other hammer toe(s) (acquired), left foot (M20.42) Active confirmed Problem Plantar fascial fibromatosis (37360865) Plantar fascial fibromatosis (M72.2) Active confirmed Problem 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) Active confirmed Problem Pronation deformity of right foot (M21.6X1) Active confirmed Problem Raynaud's disease (433551024) Raynaud's phenomenon without gangrene (I73.00) Active confirmed Problem Localized, primary osteoarthritis of the ankle and/or foot (770831984) Arthritis of joint of lesser toe, left (M19.072) Active confirmed Problem Localized, primary osteoarthritis of the ankle and/or foot (207262058) Arthritis of joint of lesser toe, right (M19.071) Active confirmed Problem Plantar fascial fibromatosis (53453666) Plantar fasciitis, bilateral (M72.2) Active confirmed Vital Signs Blood pressure diastolic 71 mm Hg 09/08/2024 Height 5ft 7in in 09/08/2024 Blood pressure systolic 110 mm Hg 09/08/2024 Weight 178 lbs 09/08/2024 BMI 27.88 kg/m2 09/08/2024 Encounters Encounter Location Date Provider Diagnosis [address] [address] 05/20/2024 Roseline Black Pain in right toe(s) [...] left foot M77.52 and Ganglion cyst M67.[address] [address] 07/14/2024 Roseline Black Pain in right foot M 79.671 ; Plantar fasciitis, bilateral M72.2 ; Other myositis of right foot M60.871 ; Bursitis of right foot M77.51 ; Pain in left foot M79.672 ; Other myositis of left foot M60.872 and Bursitis of left foot M77.[address] [facility] [address] 09/08/2024 Roseline Black Pain in right foot M 79.671 ; Plantar fasciitis, bilateral M72.2 ; Other myositis of right foot M60.871 ; Bursitis of right foot M77.51 ; Pain in left foot M79.672 ; Other myositis of left foot M60.872 and Bursitis of left foot M77.[address] [facility] [address] 05/20/2024 Roseline Black [facility] [address] 07/14/2024 [facility] [address] 10/16/2024 Roseline Black Assessments Encounter Date Diagnosis [...] X ray : Foot, right 3V 12/04/2012 [id number] NAIL, 6 OR MORE 03/17/2021 Insurance Providers Payer Name Payer Address Payer Phone Subscriber Number Group Number Insured Name Patient Relationship to Insured Coverage Start Date Coverage End Date Curtis Gandara [address] [place] [address] [id number] Stephanie Medina Self - patient is the insured Medical (General) History Medical History History ICD Code sciatica chicken pox back, hip, knee pain asthma Surgical History Surgery Date(Month/Year) right elbow surgery 2011 carpal tunnel surgery-right 07/2018
--- OUTSIDE RECORDS SUMMARY | 2025-03-31 15:00 | XMS_ITS | Encounter Summary ---
Author Organization [facility] Address [address] [place] [address] Phone Care Team Providers Care Optician Manager Name Role Phone Steven Taylor MD Primary Care Provider + Encounter Details Date Type Department Care Team (Late st Contact Info) Description 11/17/2021 Transcribe Orders Virtual Department [address] [place] [address] Shine Faulkner, DO [address] [facility], [address] [place] [address] [email or web address] Dyspnea, unspecified type Social History Tobacco Use Types Packs/Day Years Used Date Smoking Tobacco: Never Assessed Comments Unknown Sex and Gender Information Value Date Recorded Sex Assigned at Not on file Legal Sex Unknown 11/17/2021 1:05 PM EDT Gender Identity Not on file Sexual Orientation Not on file documented as of this encounter Plan of Treatment Not on file documented as of this encounter Results * XR CHEST PA AND LATERAL 2 VIEWS (11/20/2021 9:29 AM EDT) Anatomical Region Laterality Modality Chest Computed Radiogr aphy 11/20/2021 10:0 3 AM EDT Impressions 11/20/2021 10:03 AM EDT Normal chest. Narrative 11/20/2021 10:03 AM EDT XR CHEST PA AND LATERAL 2 VIEWS COMPARISON: None FINDINGS: Devices/Tubes/Lines: None. Lungs: Normal. The lungs are clear. No focal consolidation or pulmonary edema. Pleura: Normal. No pleural effusion or pneumothorax. Heart/Mediastinum: Normal heart and mediastinum. Bones/Soft Tissues: Normal. No significant skeletal abnormality. Procedure Note Anand Hernandez MD - 11/20/2021 XR CHEST PA AND LATERAL 2 VIEWS COMPARISON: None FINDINGS: Devices/Tubes/Lines: None. Lungs: Normal. The lungs are clear. No focal consolidation or pulmonaryedema. Pleura: Normal. No pleural effusion or pneumothorax. Heart/Mediastinum: Normal heart and mediastinum. Bones/Soft Tissues: Normal. No significant skeletal abnormality. IMPRESSION: Normal chest. Shine Faulkner DO IMG XR CHEST Final Result documented in this encounter Visit Diagnoses Diagnosis Dyspnea, unspecified type Dyspnea, unspecified type documented in this encounter Care Teams Optician Manager Relationship Specialty Start Date End Date Steven Taylor MD [address] [place] [phone] PCP - General Internal Medicine 11/20/21 documented as of this encounter Additional Source Comments The information contained in this document represents components of the legal health record. It is not the complete legal health record.[facility]
--- OUTSIDE RECORDS SUMMARY | 2025-03-31 15:00 | XMS_ITS | Clinical Summary ---
Author Organization [facility] [address] [facility] Address [address] [place] [address] Phone Care Team Providers Care Respiratory Coordinator Name Role Phone Jeannine Vera MD Primary [...] right wrist 03/24/2018 Overview (07/01/2024): NCT at [facility] Snoring 06/12/2017 Overview (07/01/2024): 05/2017 Home Sleep Study did not reveal sleep apnea. Hot flashes, menopausal 09/19/2015 Asthma 04/26/2014 Vitamin D insufficiency 04/13/2013 Cervical radiculopathy 04/09/2011 Hypertension 12/04/2010 Pure hypercholesterolemia 09/19/2007 Allergic rhinitis 12/31/2005 Encounters Date Type Department Care Team Description 02/08/2025 Telephone Gastroenterology - [place] [address] [facility] [address] [facility] [address] [place] [address] Doc Basurto MD 01/28/2025 1:30 PM EDT Office Visit Adult Medicine [facility] [address] [place] [address] Evangelina Mike NP Excessive cerumen in ear canal, bilateral (Primary Dx) from Last 3 Months Immunizations Name Administration Dates Next Due H1N1 Inj Preservative Free 06/16/2009 Hepatitis B (Bblgysy-H-Ltvrg , Recombivax HB-Adult) 19yo and older 09/24/2005,08/20/2005 [...] syndrome of right wrist; COMMENT: NCT at [facility] Osteoarthritis 05/20/2018 DX:Osteoarthriti s Family History [...] for your loved ones. For example, child psychologist or elderly care for an older adult? [...] Info) Description 05/10/2025 10:30 AM EDT Appointment [facility] [address] [place] [address] Ramos Preston MD [address] [place] [phone] Health Maintenance Due Date Last Done Comments Hepatitis B Vaccines (3 of 3 - 19+ 3-dose series) 02/17/2006 09/24/2005, 08/20/2005 HIV Screening 07/07/2022 RSV Immunization Adult Patients (1 - Risk 60-74 years 1-dose series) 2025 COVID-19 Vaccine ( season) 2025 03/27/2024, 03/26/2024, 04/19/2023, Additional history exists Influenza [...] Screening (Lipid Panel) 09/11/2029 09/11/2024, 03/16/2024, 03/16/2024 Hepatitis C Screening Completed 04/13/2013 Zoster Vaccines [...] EDT Excessive cerumen in ear canal, bilateral COMPREHENSIVE METABOLIC PANEL Routine 09/11/2024 8:11 AM [...] for a few another week. Evangelina Mike NP IN CLINIC/BEDSIDE ORDERABLES F inal Result * Lipid panel with reflex to direct LDL (09/11/2024 8:11 AM EST) Cholesterol 152 0 - 200 mg/dL LAB CHEMISTRY METHOD 09/11/2024 10:25 AM EST [facility] Triglycerides 130 0 - 150 mg/dL LAB CHEMISTRY METHOD 09/11/2024 10:25 AM EST [facility] HDL 62 >=40 mg/dL LAB CHEMISTRY METHOD 09/11/2024 10:25 AM EST [facility] LDL Calculated 64 0 - 100 mg/dL LAB CHEMISTRY METHOD 09/11/2024 10:25 AM [facility] VLDL Cholesterol Toney 26 mg/dL LAB CHEMISTRY METHOD 09/11/2024 10:25 AM EST [facility] Non HDL Chol. (LDL+VLDL) 90 <145 mg/dL LAB CHEMISTRY METHOD 09/11/2024 10:25 AM EST [facility] Chol/HDL Ratio 2.5 0.0 - 4.4 LAB CHEMISTRY METHOD 09/11/2024 10:25 AM [facility] Blood Venous blood specimen / Unknown Venipuncture / Unknown 09/11/2024 8:11 AM EST 09/11/2024 8:11 AM EST us Isabel Taylor MD LAB BLOOD ORDERABLES Final Res ult [facility] [address] [place] [address], * (ABNORMAL) Comprehensive metabolic panel (09/11/2024 8:11 AM EST) Sodium 138 133 - 145 mmol/L LAB CHEMISTRY METHOD 09/11/2024 10:25 AM EST [facility] Potassium 4.5 3.5 - 5.5 mmol/L LAB CHEMISTRY METHOD 09/11/2024 10:25 AM [facility] Chloride 105 96 - 110 mmol/L LAB CHEMISTRY METHOD 09/11/2024 10:25 AM [facility] CO2 29 21 - 32 mmol/L LAB CHEMISTRY METHOD 09/11/2024 10:25 AM [facility] Anion Gap 4 3 - 11 LAB CHEMISTRY METHOD 09/11/2024 10:25 AM [facility] Glucose 104(H) 70 - 100 mg/dL LAB CHEMISTRY METHOD 09/11/2024 10:25 AM [facility] BUN 16 5 - 25 mg/dL LAB CHEMISTRY METHOD 09/11/2024 10:25 AM [facility] Creatinine 0.72 0.50 - 1.10 mg/dL LAB CHEMISTRY METHOD 09/11/2024 10:25 AM [facility] eGFR 96 >=60 mL/min/1. 73m2 LAB CHEMISTRY METHOD 09/11/2024 10:25 AM [facility] Comment:Calculation based on the Chronic Kidney Disease Epidemiology Collaboration (CKD-EPI) equation refit without adjustment for race. BUN/Creatinine Ratio 22.2 LAB CHEMISTRY METHOD 09/11/2024 10:25 AM [facility] Calcium 9.8 8.5 - 10.5 mg/dL LAB CHEMISTRY METHOD 09/11/2024 10:25 AM [facility] AST (SGOT) 19 10 - 42 unit/L LAB CHEMISTRY METHOD 09/11/2024 10:25 AM [facility] ALT (SGPT) 31 10 - 60 unit/L LAB CHEMISTRY METHOD 09/11/2024 10:25 AM [facility] Alkaline Phosphatase 76 42 - 121 unit/L LAB CHEMISTRY METHOD 09/11/2024 10:25 AM [facility] Total Protein 7.4 6.0 - 8.0 g/dL LAB CHEMISTRY METHOD 09/11/2024 10:25 AM EST [facility] Albumin 4.4 3.2 - 5.0 g/dL LAB CHEMISTRY METHOD 09/11/2024 10:25 AM EST [facility] Total Bilirubin 0.6 0.0 - 1.4 mg/dL LAB CHEMISTRY METHOD 09/11/2024 10:25 AM EST [facility] Blood Venous blood specimen / Unknown Venipuncture / Unknown 09/11/2024 8:11 AM EST 09/11/2024 8:11 AM EST us C Howie Taylor MD LAB BLOOD ORDERABLES Final Res ult [facility]) [facility] [address] [place] [address], * SCREENING MAMMOGRAPHY BI 2-VIEW BREAST INC [...] Breast cancer risk category Low (<15%) Location: [facility], [address] [place] [address], [place], [address], [phone] Procedure Note Darlene Alberts MD - 05/13/2024 [...] Breast cancer risk category Low (<15%) Location: [facility], [address] [place] [address], [phone], [phone] Patti Hernández DO IMG XR PROCEDURES Final Resul t * Cervical Cancer Screening: HPV (11/30/2022) Cervical Cancer Screening: HPV negative, abstracted Historical Provider HEALTH MAINTENANCE Final Result * Hepatitis C Screening (04/13/2013) Hepatitis C Screening abstracted Historical Provider HEALTH MAINTENANCE Final Result from Last 3 Months or Most Recently Relevant to Health Maintenance Insurance [facility] [employer] [facility] Care Teams Respiratory Coordinator Relationship Specialty Start Date End Date Jeannine Vera MD [address] [place] [address] PCP - General Internal Medicine 02/08/25
== END 2025-03-31 13:22 | disposition home or self-care (01) ==
LOC: HO.HNS 12:33
PROVIDERS: PCP Internal Medicine; Visit Provider Physician Assistant
DX: M48.061 Spinal stenosis, lumbar region without neurogenic claudication (principal)
CPT/HCPCS: 99024

== ENCOUNTER 2025-03-31 12:33 | Outpatient (REF) | payer BC, SELFPAY | END 2025-03-31 12:34 | disposition home or self-care (01) | LOC: HO.HOSX 12:33 | PROVIDERS: PCP Internal Medicine; Visit Provider Physician Assistant | DX: Z13.89 Encounter for screening for other disorder (principal) ==

== ENCOUNTER 2025-05-13 09:20 | Outpatient (REF) | payer BC, SELFPAY ==
--- NOTE | ~2025-05-13 | XR_ITS ---
CLINICAL HISTORY: M48.061 - Spinal stenosis, lumbar region without neurogenic claudication --- Additional Notes or Special Instructions: Standing, AP and lateral with flexion-extension views 4 views lumbar spine Comparison: 01/01/2025 Findings: Normal vertebral body alignment. In neutral positioning, L4 is 5.7 mm anterior displacement L5. With flexion, this is 6.8 mm and with extension 5.6 mm. Iatrogenic findings with well-positioned surgical hardware at L4-L5. No acute fractures or dislocation. No significant degenerative change. IMPRESSION: L4-L5 iatrogenic findings This document has been electronically signed by: Jeramy Waller MD on 05/14/2025 10:47:16
== END 2025-05-13 09:21 | disposition home or self-care (01) ==
LOC: HO.HOSX 09:20
PROVIDERS: Visit Provider Physician Assistant
DX: Z47.89 Encounter for other orthopedic aftercare (principal); M48.061 Spinal stenosis, lumbar region without neurogenic claudication; Z98.1 Arthrodesis status
CPT/HCPCS: 72110

== ENCOUNTER 2025-05-13 13:49 | Outpatient (AMB) | payer BC, SELFPAY ==
--- OUTSIDE RECORDS SUMMARY | 2024-10-21 04:00 | XMS_ITS ---
Author Organization [facility] Address [address] [place] [address] Care Team Providers Care Manager Spa Name Role Phone Brandon HUBBARD, Steven Primary Care Provider Roseline Moya [phone] Encounters Encounter Location Date Provider Diagnosis [address] [address] 10/21/2024 Roseline Carreno Plan Of Treatment No Information Progress Notes * Stephanie MEDINA ADOB: [birth year] (60 yo F)Acc No.[id number]:10/21/2024 Progress Notes Patient: Stephanie SHAH Provider: Dannielle Carreno DPM :1965 A ge:59 Y S ex:Female Date:10/21/2024 Address:[address] [place], [place] [phone] Pcp:Steven Taylor MD Subjective: * Chief Complaints: [...] 10/21/2024 Generated for Codyi ng/Faxing/eTransmitting on: 1 05:34 PM EDT
--- OUTSIDE RECORDS SUMMARY | 2025-05-10 09:17 | XMS_ITS | Encounter Summary ---
Author Organization [facility] Address [address] [place] [address] Care Team Providers Care Academic Affairs Dean Name Role Phone Jeannine Vera MD Primary Care Provider [phone] Reason for Referral * Hospital - Outpatient (Routine) - Authorized Specialty Diagnoses / Procedures Referred By Contac t Referred To Contact Gastroenterology Diagnoses Colon cancer screening Procedures COLONOSCOPY Anesthesia - MAC; [facility] Ramos Preston MD [address] [address] Phone: tel: fax: [facility] Endoscopy [address] [place] [address] Phone: tel: Referral ID Status Reason Start Date Expiration Date V isits Requested Visits Authorized [id number] Authorized 02/09/2025 02/09/2026 1 1 Reason for Visit * Hospital - Outpatient (Routine) - Authorized Specialty Diagnoses / Procedures Referred By Contac t Referred To Contact Gastroenterology Diagnoses Colon cancer screening Procedures COLONOSCOPY Anesthesia - MAC; [facility] Ramos Preston MD [address] [address] Phone: tel: fax: [facility] [address] [place] [address] Phone: tel: Referral ID Status Reason Start Date Expiration Date V isits Requested Visits Authorized [id number] Authorized 02/09/2025 02/09/2026 1 1 Encounter Details Date Type Department Care Team (Latest Contact Info) Description 05/10/2025 9:17 AM EDT Hospital Encounter [facility] [address] [place] [id number] Ramos Preston MD [address] [address] Ghulam Tipton CRNA [address] [place] [address] Bernard Headley MD [address] [place] [address] Colon cancer screening Social History Tobacco Use Types Packs/Day Years Used Date Smoking Tobacco: Never Smokeless Tobacco: Never Alcohol Use Standard Drinks/Week Comments Not Currently [...] for your loved ones. For example, child and youth program assistant or elderly care for an older adult? [...] Date Recorded What is your living situation? Unrecognized valu e 12/16/2024 Interpersonal Safety Answer Date Record ed Physical Abuse Unrecognized value 05/10/2025 Verbal Abuse Unrecognized value 05/10/2025 Comments No Sex and Gender Information Value Date Recorded Sex Assigned at Female 05/04/2025 9:57 AM EDT Legal Sex Female 12:30 AM EST Gender Identity Female 05/04/2025 9:57 AM EDT Sexual Orientation Not on file documented as of this encounter Last Filed Vital Signs Vital Sign Reading Time Taken Comments Blood Pressure 129/68 05/10/2025 10:33 AM EDT Pulse 63 05/10/2025 10:33 AM EDT Temperature 36.3 C (97.3 F) 05/10/2025 10:13 AM EDT Respiratory Rate 18 05/10/2025 10:33 AM EDT Oxygen Saturation 100% 05/10/2025 10:33 AM EDT Inhaled Oxygen Concentration - - Weight 74.8 kg (165 lb) 05/10/2025 9:31 AM EDT Height 173.7 cm (5' 8.4 ) 05/10/2025 9:31 AM EDT Body Mass Index 24.8 05/10/2025 9:31 AM EDT documented in this encounter Progress Notes * Kenya Thomason RN - 05/10/2025 10:30 AM EDT Problem: Cognitive:Periop Procedure - Minor Goal: Knowledge of disease or condition will improve Outcome: Progressing Problem: Sensory:Periop Procedure - Minor Goal: Demonstrates/reports adequate pain control Outcome: Progressing Problem: Patient Specific Problem: Periop Procedure - Minor Goal: Patient Specific Outcome Outcome: Progressing Pt understands discharge instructions denies pain * Gisela Wasserman RN - 05/10/2025 10:22 AM EDT Problem: Cognitive:Periop Procedure - Minor Goal: Knowledge of disease or condition will improve Outcome: Completed Problem: Sensory:Periop Procedure - Minor Goal: Demonstrates/reports adequate pain control Outcome: Completed Problem: Patient Specific Problem: Periop Procedure - Minor Goal: Patient Specific Outcome Outcome: Completed Dr in to discuss procedure results, all questions answered. Tolerated po fluids, ready for discharge. documented in this encounter H&P Notes * Ramos Preston MD - 05/10/2025 10:30 AM EDT Pre-Op Diagnosis: Screening for colon cancer Proposed Procedure: Colonoscopy Performing Surgeon/MD/Endoscopist: Ramos Preston MD Medical/History: Medical History[1]Surgical History[2] Medications/Allergies: Prior to Admission medications Medication Sig Start Date End Date Taking? Authorizing Provider albuterol HFA (PROAIR HFA ; PROVENTIL HFA ; VENTOLIN HFA) 90 mcg/actuation inhaler Inhale 2 puffs by mouth every 4 (four) hours if needed. Historical Provider, bisacodyL (DULCOLAX) 5 mg EC tablet Take 2 tablets by mouth right before beginning bowel prep. See instructions provided by the office 04/26/25 Ramos Preston MD Breo Ellipta 100-25 mcg/dose inhaler Inhale 1 puff by mouth 1 (one) time each day. 12/01/24 Historical Provider, cholecalciferol (VITAMIN D-3) 50 mcg (2,000 unit) tablet Take by mouth daily. Historical Provider, cyclobenzaprine (FLEXERIL) 10 mg tablet Take 1 tablet (10 mg total) by mouth at bedtime as needed. Patient not taking: Reported on 01/28/2025 02/04/24 Historical Provider, fexofenadine (Maria A Allergy) 180 mg tablet Take 1 tablet (180 mg total) by mouth if needed. 09/03/24 Historical Provider, fluticasone (Flonase Sensimist) 27.5 mcg/actuation nasal spray Administer 2 sprays into each nostril at bedtime. 09/03/24 Historical Provider, levocetirizine dihydrochloride (XYZAL ORAL) at bedtime. 09/03/24 Historical Provider, losartan (COZAAR) 50 mg tablet Take 1 tablet (50 mg total) by mouth 1 (one) time each day. 10/22/24 Isabel Taylor MD melatonin 3 mg tablet Take by mouth at bedtime as needed for sleep. Historical Provider, multivitamin (MULTIPLE VITAMINS ORAL) Take by mouth daily. Historical Provider, polyethylene glycol (Golytely) 236-22.74-6.74 -5.86 gram solution Take 4L by mouth once for one dose. May substitue any PEG. Starting at 2PM the day before your procedure drink 1 8oz glasses at your own pace until you complete half of the gallon. Finish 2nd half of the gallon at 8PM. 04/26/25 Ramos Preston MD pregabalin (LYRICA) 75 mg capsule Take 1 capsule (75 mg total) by mouth 2 (two) times a day. 11/17/24 Historical Provider, semaglutide (Ozempic) 0.25 mg or 0.5 mg(2 mg/1.5 mL) injection pen Inject 0.5 mg under the skin every 7 (seven) days. Historical Provider, simvastatin (ZOCOR) 10 mg tablet TAKE 1 TABLET BY MOUTH AT BEDTIME. TAKE 1 TABLET BY MOUTH EVERYDAYAT BEDTIME 10/22/24 Isabel Taylor MD Patient Age:60 y.o. Vitals: Vitals: 05/10/25 0931 BP: 129/63 Pulse: 67 Resp: 16 Temp: 36.3 ??C (97.3 ??F) SpO2: 100% Physical Exam: Mental Status: Clear HEENT: WNL Heart: WNL Lungs: WNL Abdomen: WNL Extremities: WNL Neuro: WNL Diagnosis/Plan: Screening for colon cancer Plan for colonoscopy Board Certified Gastroenterology [facility] W [phone] [place] [address] [email or web address] Ramos Preston MD 9:38 AM EDT [1] Past Medical History: Diagnosis Date Allergic rhinitis, cause unspecified 12/31/2005 DX:Allergic rhinitis, cause unspecified Asthma 09/09/2007 DX:Asthma Asthma 04/26/2014 DX:Asthma Carpal tunnel syndrome of right wrist 03/24/2018 DX:Carpal tunnel syndrome of right wrist; COMMENT: NCT at [place] Spine Osteoarthritis 05/20/2018 DX:Osteoarthritis Unspecified asthma(493.90) 12/31/2005 DX:Unspecified asthma(493.90) [2] Past Surgical History: Procedure Laterality Date COLONOSCOPY 05/02/15 PROCEDURE: HISTORICAL COLONOSCOPY; COMMENT: normal; repeat in 10 yrs OTHER SURGICAL HISTORY PROCEDURE: DENIES PREVIOUS SURGERY documented in this encounter Plan of Treatment Not on file documented as of this encounter Procedures Procedure Name Priority Date/Time Associated Diagnosis Comments COLONOSCOPY Routine 05/10/2025 10:12 AM EDT Colon cancer screening documented in this encounter Results * COLONOSCOPY Anesthesia - MAC; [facility] (05/10/2025 10:12 AM EDT) Anatomical Region Laterality Modality Other 05/10/2025 9:40 AM EDT Impressions 05/10/2025 10:13 AM EDT - Diverticulosis in the sigmoid colon. - Non-bleeding internal hemorrhoids. - The examination was otherwise normal on direct and retroflexion views. - No specimens collected. Recommendation: - Discharge patient to home. - High fiber diet. - Continue present medications. - Repeat colonoscopy in 10 years for surveillance. - Return to GI office PRN. Narrative 05/10/2025 10:13 AM EDT [facility] GI Patient Name: Stephanie Medina Procedure Date: 05/10/2025 9:40 AM Date of : 1965 Age: 60 Room: ROOM 14 Gender: Female Note Status: Finalized Attending MD: Ramos Preston MD, Procedure Date No Time: 05/10/2025 Procedure: Colonoscopy Indications: Screening for colorectal malignant neoplasm Providers: Ramos Preston MD Referring MD: Ramos Preston MD Medicines: Monitored Anesthesia Care Complications: No immediate complications. Estimated Blood Loss: Estimated blood loss: none. Procedure: Pre-Anesthesia Assessment: - ASA Grade Assessment: II - A patient with mild systemic disease. - After reviewing the risks and benefits, the patient was deemed in satisfactory condition to undergo the procedure. After I obtained informed consent, the scope was passed under direct vision. Throughout the procedure, the patient's blood pressure, pulse, and oxygen saturations were monitored continuously.The Olympus Pediatric Colonoscope was introduced through the anus and advanced to the cecum, identified by appendiceal orifice and ileocecal valve. The colonoscopy was performed without difficulty. The patient tolerated the procedure well. The quality of the bowel preparation was good. Findings: Scattered small and large-mouthed diverticula were found in the sigmoid colon. Non-bleeding internal hemorrhoids were found during retroflexion. The hemorrhoids were small. The exam was otherwise without abnormality on direct and retroflexion views. Procedure Code(s): --- Professional --- G0121, Colorectal cancer screening; colonoscopy on individual not meeting criteria for high risk Diagnosis Code(s): --- Professional --- Z12.11, Encounter for screening for malignant neoplasm of colon CPT copyright 2020 [employer]. All rights reserved. The codes documented in this report are preliminary and upon lead infrastructure architect review may be revised to meet current compliance requirements. Ramos Preston MD 05/10/2025 10:13:40 AM This report has been signed electronically.Ramos Preston MD Number of Addenda: 0 Note Initiated On: 05/10/2025 9:40 AM Scope In: Scope Out: Endoscopy Department at [facility] - [address] [place] [id number] Procedure Note Ramos Preston MD - 05/10/2025 [facility] GI Patient Name: Stephanie Medina Procedure Date: 05/10/2025 9:40 AM Date of : 1965 Age: 60 Room: ROOM 14 Gender: Female Note Status: Finalized Attending MD: Ramos Preston MD, Procedure Date No Time: 05/10/2025 Procedure: Colonoscopy Indications: Screening for colorectal malignant neoplasm Providers: Ramos Preston MD Referring MD: Ramos Preston MD Medicines: Monitored Anesthesia Care Complications: No immediate complications. Estimated Blood Loss: Estimated blood loss: none. Procedure: Pre-Anesthesia Assessment: - ASA Grade Assessment: II - A patient with mild systemic disease. - After reviewing the risks and benefits, thepatient was deemed in satisfactory condition to undergo the procedure. After I obtained informed consent, the scope was passed under direct vision. Throughout theprocedure, the patient's blood pressure, pulse, and oxygen saturations were monitored continuously.The Olympus Pediatric Colonoscope was introduced through theanus and advanced to the cecum, identified byappendiceal orifice and ileocecal valve. The colonoscopy was performed without difficulty. The patient tolerated the procedure well. The quality of the bowel preparation was good. Findings: Scattered small and large-mouthed diverticula were found in the sigmoid colon. Non-bleeding internal hemorrhoids were found during retroflexion. The hemorrhoids were small. The exam was otherwise without abnormality ondirect and retroflexion views. Procedure Code(s): --- Professional --- G0121, Colorectal cancer screening; colonoscopy on individual not meeting criteria for high risk Diagnosis Code(s): --- Professional --- Z12.11, Encounter for screening for malignantneoplasm of colon CPT copyright 2020 [employer]. All rights reserved. The codes documented in this report are preliminary and upon lead infrastructure architect reviewmay be revised to meet current compliance requirements. Ramos Preston MD 05/10/2025 10:13:40 AM This report has been signed electronically.Ramos Preston MD Number of Addenda: 0 Note Initiated On: 05/10/2025 9:40 AM Scope In: Scope Out: Endoscopy Department at [facility] - [address] [place] [id number] IMPRESSION: - Diverticulosis in the sigmoid colon. - Non-bleeding internal hemorrhoids. - The examination was otherwise normal on directand retroflexion views. - No specimens collected. Recommendation: - Discharge patient to home. - High fiber diet. - Continue present medications. - Repeat colonoscopy in 10 years forsurveillance. - Return to GI office PRN. us Ramos Preston MD GI~PROCEDURE ORDERABLES Final Result documented in this encounter Visit Diagnoses Diagnosis Colon cancer screening Special screening for malignant neoplasms, colon documented in this encounter Orders Discharge Count Last Ordered Date First Orde red Date DISCHARGE PATIENT 1 05/10/2025 documented in this encounter Additional Health Concerns Assessment Noted Time PHQ-9 Depression Total Score: 2 12/17/19 11:05 AM EDT documented as of this encounter Care Teams Academic Affairs Dean Relationship Specialty Start Date End Date Jeannine Vera MD [address] [place] [address] PCP - General Internal Medicine 02/08/25 documented as of this encounter
--- OUTSIDE RECORDS SUMMARY | 2025-05-10 09:53 | XMS_ITS | Encounter Summary ---
Author Organization [facility] Address [address] [place] [address] Care Team Providers Care Flight Surveyor Name Role Phone Jeannine Vera MD Primary Care Provider [phone] Encounter Details Date Type Department Care Team (Late st Contact Info) Description 05/10/2025 9:53 AM EDT Anesthesia Event [facility] Endoscopy [address] [place] [id number] Bernard Headley MD [address] [place] [address] Anesthesia Record Procedure Summary Procedure Name Responsible Anesthesiologist Anesthesia Start Time Anesthesia Stop Time COLONOSCOPY Bernard Headley MD 05/10/25 0953 05/10/25 1015 Events Date Time Event Comment 05/10/2025 0949 0953 An Start 0953 An Start Data The patient wa s reevaluated immediately before moderate or deep sedation use and before anesthesia induction. 0953 In Room 0954 Anesthesia Ready 1011 an stop data 1012 Out of Room 1015 Handoff to RN I completed my handoff to the receiving nurse during which we: 1. Identified the patient 2. Identified the responsible provider 3. Reviewed the pertinent medical history 4. Discussed the surgical course 5. Reviewed intra-op anesthesia management and issues during anesthesia 6. Set expectations for post-procedure period 7. Allowed opportunity for questions and acknowledgement of understanding. 1015 An Stop Meds Name Total propofol (DIPRIVAN) injection 10 mg/mL 2 50 mg lactated Ringer's infusion 800 mL * Agents Name O2 * Blood No blood administrations on file. Lines, Drains, and Airways Type Details Placement Removal Peripheral IV Placement Date: 05/10/25; Placement Time: 940; Catheter Size: 20 G; Orientation: Anterior, Proximal, Right; Location: Forearm; Site Prep: Chlorhexidine; Local Anesth: None; Insertion Attempts: 2; Removal Date: 05/10/25; Removal Time: 1023 05/10/25 09 by Kenya Thomason RN 05/10/25 102 by Gisela Wasserman RN documented in this encounter Social History Tobacco Use Types Packs/Day Years [...] care for your loved ones. For example, early childhood teacher or elderly care for an older adult? [...] on file documented as of this encounter Progress Notes * Ghulam Tipton CRNA - 05/10/2025 10:11 AM EDT Patient: Stephanie Medina Procedure Summary Date: 05/10/25 Room / Location: [facility] Endoscopy Anesthesia Start: 952 Anesthesia Stop: Procedure: COLONOSCOPY Diagnosis: Colon cancer screening Scheduled Providers: Ramos Preston MD; Ghulam Tipton CRNA; Bernard Headley MD ResponsibleProvider: Bernard Headley MD Anesthesia Type: MAC ASA Status: 2 Anesthesia Plan: MAC Last Vitals: Vitals Value Taken Time BP 115/56 05/10/25 10:11 Temp 36.4 05/10/25 10:11 Pulse 70 05/10/25 10:11 Resp 18 05/10/25 10:11 SpO2 98 05/10/25 10:11 No data recorded Anesthesia Post Evaluation Patient location during evaluation: PACU Patient participation: complete - patient participated Level of consciousness: awake and alert Pain score: 0 Pain management: adequate Airway patency: patent Anesthetic complications: no Cardiovascular status: acceptable and hemodynamically stable Respiratory status: acceptable and face mask Hydration status: acceptable Nausea: No Vomiting: No No notable events documented. * Bernard Headley MD - 05/10/2025 9:30 AM EDT Relevant Problems Cardio (+) Hot flashes, menopausal (+) Hypertension Pulmonary (+) Asthma Other (+) Osteoarthritis Clinical information reviewed: Meds Anesthesia Plan ASA 2 Anesthesia Plan: MAC Induction method: N/A Anesthetic plan and risks discussed with patient. Anesthesia Evaluation Airway Mallampati: II Dental - normal exam Pulmonary - normal exam (+) asthma Cardiovascular - normal exam (+) hypertension ROS comment: Hypercholesterolemia Neuro/Psych (+) psychiatric history Comments: Moderate major depression GI/Hepatic/Renal Endo/Other (+) arthritis Comments: Impaired glucose tolerance Eczema Abdominal PONV RISK SCORE: 2 There were no vitals filed for this visit. SpO2 Readings from Last 1 Encounters: No data found for SpO2 No results found for: WBC , RBC , HGB , HCT , PLT , MCV Allergies[1] STOP BANG: No data recorded NPO Status: Time of Last Liquid: 0 Time of Last Solid: 1999 [1] Allergies Allergen Reactions Azithromycin Hives Clotrimazole Hives Latex Hives Terbinafine Hcl Hives documented in this encounter Plan of Treatment Not on file documented as of this encounter Visit Diagnoses Not on filedocumented in this encounter Administered Medications Inactive Administered Medications - up to 3 most recent administrations Medication Order MAR Action Action Date Dose Rate Site lactated Ringer's infusion intravenous, Continuous PRN, Starting on Sat05/10/25 at 0954, Anesthesia Intraprocedure New Bag 05/10/2025 9:54 AM EDT propofoL (DIPRIVAN) injection intravenous, As needed, Starting on Sat05/10/25 at 0956, Anesthesia Intraprocedure Given 05/10/2025 10:06 AM EDT 50 mg Given 05/10/2025 10:01 AM EDT 50 mg Given 05/10/2025 9:56 AM EDT 150 mg documented in this encounter Additional Health Concerns Assessment Noted Time PHQ-9 Depression Total Score: 2 12/17/19 11:05 AM EDT documented as of this encounter Care Teams Flight Surveyor Relationship Specialty Start Date End Date Jeannine Vera MD [address] [place] [address] PCP - General Internal Medicine 02/08/25 documented as of this encounter
--- NOTE | 2025-05-13 14:24 | HO.SPINEOV ---
Intake Visit Reasons: 2nd post op with xrays Intake Note: Ms. Medina is here today for her 2nd post op with x-rays. Fruit Or Nut Grower Required: No Allergies azithromycin Allergy (Mild, Verified 03/11/25 05:21) Hives latex Allergy (Mild, Verified 03/11/25 05:21) Hives terbinafine Allergy (Mild, Verified 03/11/25 05:21) Hives Assessment & Plan Assessment & Plan (1) Lumbar spinal stenosis: Comment: L4-L5, scheduled for lumbar spinal decompression 03/09/[address] Salazar. Code(s): M48.061 - Spinal stenosis, lumbar region without neurogenic claudication Category: Medical Plan Mrs Medina is now about 2 months out from her L4-5 oblique lumbar interbody fusion. She is walking significantly better than she was before surgery. 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 She is very happy that she had the surgery. At this point she is doing great, I told her she has got a few more months before I will completely lift restrictions on lifting and movements etc.. For now we will just continue as she has currently been doing because she is doing so well. I will do a final set of x-rays in 2 months and at that point if everything looks great she will be off restrictions and activity as tolerated. Victor Manuel Salazar MD, PhD [facility] Orders: Orders XR lumbar spine 4V min 2 Months M48.061 - Spinal stenosis, lumbar region without neurogenic claudication Coding Level of Care Code Global (70197) Diagnoses Lumbar spinal stenosis M48.061
--- OUTSIDE RECORDS SUMMARY | 2025-05-13 17:34 | XMS_ITS | Clinical Summary ---
Author Organization [facility] Address [address] [id number] Phone Care Team Providers Care Lead Radiologic Technologist Name Role Phone Isabel Taylor MD Primary Care Provider [phone] Social History Tobacco Use Types Packs/Day Years [...] file Medical Devices Not on file Insurance [facility] PPO BLUE CROSS OUT OF STATE PPO BLUE CROSS OUT OF STATE PPO BLUE CROSS OUT OF [facility] PPO BLUE CROSS OUT OF STATE PPO [facility] OUT STATE PPO Care Teams Lead Radiologic Technologist Relationship Specialty Start Date End Date Isabel Taylor MD [address] [place] [address] PCP - General Internal Medicine 11/20/21 Additional Source Comments The information contained in this document represents components of the legal health record. It is not the complete legal health record.[facility]
--- OUTSIDE RECORDS SUMMARY | 2025-05-13 17:34 | XMS_ITS | Encounter Summary ---
Author Organization [facility] Address [address] [place] [address] Phone Care Team Providers Care Budget Record Clerk Name Role Phone Isabel Taylor MD Primary Care Provider [phone] Encounter Details Date Type Department Care Team (Late st Contact Info) Description 11/17/2021 Transcribe Orders Virtual Department [address] [place] [address] Shine Faulkner, DO [address] [facility], [address] [place] [address] [email or web address] Dyspnea, unspecified type Social History Tobacco Use [...] type documented in this encounter Care Teams Budget Record Clerk Relationship Specialty Start Date End Date Isabel Taylor MD [address] [place] [address] PCP - General Internal Medicine 11/20/21 documented as of this encounter Additional Source Comments The information contained in this document represents components of the legal health record. It is not the complete legal health record.[facility]
--- OUTSIDE RECORDS SUMMARY | 2025-05-13 17:35 | XMS_ITS | Clinical Summary ---
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 Active bisacodyL (DULCOLAX) 5 mg EC tablet Take 2 tablets by mouth right before beginning bowel prep. See instructions provided by the office 2 tablet 04/26/20 25 Active polyethylene glycol (Golytely) 236-22.74-6.74 -5.86 gram solution Take 4L by mouth once for one dose. May substitue any PEG. Starting at 2PM the day before your procedure drink 1 8oz glasses at your own pace until you complete half of the gallon. Finish 2nd half of the gallon at 8PM. 4000 mL 04/26/20 25 Active Active Problems Problem Noted Date Diagnosed Date Colon cancer screening 09/16/2024 Overview (09/16/2024): 2015--10 yrs Impaired glucose tolerance 04/03/2024 Overview (07/01/2024): 03/21 HgbA1C 6.1% Moderate major depression (CMS/HCC V24, CMS/HCC V28) 08/04/2019 Overweight (BMI 25.0-29.9) 08/04/2019 Eczema of both hands 10/27/2018 Osteoarthritis 05/20/2018 Carpal tunnel syndrome of right wrist 03/24/2018 Overview (07/01/2024): NCT at [facility] Snoring 06/12/2017 Overview (07/01/2024): 05/2017 Home Sleep Study did not reveal sleep apnea. Hot flashes, menopausal 09/19/2015 Asthma 04/26/2014 Vitamin D insufficiency 04/13/2013 Cervical radiculopathy 04/09/2011 Hypertension 12/04/2010 Pure hypercholesterolemia 09/19/2007 Allergic rhinitis 12/31/2005 Encounters Date Type Department Care Team Description 05/10/2025 9:53 AM EDT Anesthesia Event [facility] Endoscopy [address] [place] [phone] Bernard Headley MD 05/10/2025 9:17 AM EDT Hospital Encounter [facility] Endoscopy [address] [place] [phone] Ramos Preston MD Georgette, Nathaniel, CRNA Dasilva, John E, MD Colon cancer screening from Last 3 Months Immunizations Immunization Administration Dates Next Due H1N1 Inj Preservative Free 06/16/2009 Hepatitis B (Kefvhrk-N-Qzskq , Recombivax HB-Adult) 19yo and older 09/24/2005,08/20/2005 [...] 10/18/2020 Surgical History Surgery Date Site/Laterality Comments COLONOSCOPY 05/02/15 PROCEDURE: HISTORICAL COLONOSCOPY; COMMENT: normal; repeat in 10 yrs BACK SURGERY 03/09/2025 liana placed low back ELBOW SURGERY 07/29/2011 - 07/28/2012 Right Medical History Medical History Date Comments Allergic rhinitis, cause unspecified 12/31/2005 DX:Allergic rhinitis, cause unspecified Unspecified asthma(493.90) 12/31/2005 DX:Un specified asthma(493.90) Asthma 09/09/2007 DX:Asthma Asthma 04/26/2014 DX:Asthma Carpal tunnel syndrome of right wrist 03/24/2018 DX:Carpal tunnel syndrome of right wrist; COMMENT: NCT at [facility] Osteoarthritis 05/20/2018 DX:Osteoarthriti s Family History [...] do you feel lonely or isolated from ose around you? Never 12/16/2024 Food Risk [...] for your loved ones. For example, child care center assistant director or elderly care for an older [...] AM EDT Sexual Orientation Not on file Obstetrics History [...] Mass Index 24.8 05/10/2025 9:31 AM EDT Plan of Treatment Health Maintenance Due Date Last Done Comments Hepatitis B Vaccines (3 of 3 - 19+ 3-dose series) 02/17/2006 09/24/2005, 08/20/2005 RSV Immunization Adult Patients (1 - Risk 50-74 years 1-dose series) 2015 HIV Screening 07/07/2022 Hypertension/CHF/CAD Annual BMP Blood Test 09/11/2025 09/11/2024, 03/16/2024, 03/16/2024 Social Influencers of Health Screening 12/16/2025 12/16/2024 Breast Cancer Screening 04/10/2026 04/10/20 24, 04/10/2024, 04/04/2023, Additional history exists Cervical Cancer Screening: HPV 12/01/2027 11/30/2022 DTaP,Tdap,and Td Vaccines (4 - Td or Tdap) 03/14/2029 03/14/2019, 01/30/2011, 12/31/2005 Cholesterol Screening (Lipid Panel) 09/11/2029 09/11/2024, 03/16/2024, 03/16/2024 Colorectal Cancer Screening: Colonoscopy 05/10/2035 05/10/2025, 05/02/2015 Hepatitis C Screening Completed 04/13/2013 Zoster Vaccines Completed 10/18/2020, 07/16/2018 Pneumococcal Vaccine: 50+ Years Completed 03/07/2023, 06/03/2003 Depression Screening Completed 12/16/2024 COVID-19 Vaccine Completed 04/07/2025, , 03/26/2024, Additional history exists Influenza Vaccine Completed 04/07/2025, , 03/26/2024, Additional history exists HIB Vaccines Aged Out No longer eligi [...] on patient's age to complete this topic Medical Devices Implanted Type Area [employer] Dealer Device Identifier Shelf Expiration Date Model / Serial / Lot Implants Implants N/A: Back Implants Implants N/A: Neck Procedures Procedure Name Priority Date/Time Associated Diagnosis Comments COLONOSCOPY Routine 05/10/2025 10:12 AM EDT Colon cancer screening COMPREHENSIVE METABOLIC PANEL Routine 09/11/2024 8:11 AM [...] Recently Relevant to Health Maintenance Results * COLONOSCOPY Anesthesia - MAC; [facility] ENDOSCOPY (05/10/2025 10:12 AM EDT) Anatomical [...] office PRN. Narrative 05/10/2025 10:13 AM EDT [facility] GI Patient Name: Chon Medina Procedure Date: 05/10/2025 9:40 AM Date [...] malignant neoplasm of colon CPT copyright 2020 [employer]. All rights reserved. The codes documented in this report are preliminary and upon filler spreader review may be revised to meet current compliance requirements. RamosFay Preston MD 05/10/2025 10:13:40 AM This report has been signed electronically.Ramos Preston MD Number of Addenda: 0 Note Initiated On: 05/10/2025 9:40 AM Scope In: Scope Out: Endoscopy Department at [facility] - [address] [place] [phone] Procedure Note Ramos Preston MD - 05/10/2025 [facility] GI Patient Name: Chon Medina Procedure Date: 05/10/2025 9:40 AM Date [...] for malignantneoplasm of colon CPT copyright 2020 [employer]. All rights reserved. The codes documented in this report are preliminary and upon filler spreader reviewmay be revised to meet current compliance requirements. Ramos Preston MD 05/10/2025 10:13:40 AM This report has been signed electronically.Ramos Preston MD Number of Addenda: 0 Note Initiated On: 05/10/2025 9:40 AM Scope In: Scope Out: Endoscopy Department at [facility] - [address] [place] [phone] IMPRESSION: - Diverticulosis in the sigmoid colon. - Non-bleeding internal hemorrhoids. - The examination was otherwise normal on directand retroflexion views. - No specimens collected. Recommendation: - Discharge patient to home. - High fiber diet. - Continue present medications. - Repeat colonoscopy in 10 years forsurveillance. - Return to GI office PRN. Ramos Preston MD GI~PROCEDURE ORDERABLES Final Result * Lipid panel with reflex to direct LDL (09/11/2024 8:11 AM EST) Cholesterol 152 0 - 200 mg/dL LAB CHEMISTRY METHOD 09/11/2024 10:25 AM [facility] Triglycerides 130 0 - 150 mg/dL LAB CHEMISTRY METHOD 09/11/2024 10:25 AM [facility] HDL 62 >=40 mg/dL LAB CHEMISTRY METHOD 09/11/2024 10:25 AM [facility] LDL Calculated 64 0 - 100 mg/dL LAB CHEMISTRY METHOD 09/11/2024 10:25 AM [facility] VLDL Cholesterol Toney 26 mg/dL LAB CHEMISTRY METHOD 09/11/2024 10:25 AM [facility] Non HDL Chol. (LDL+VLDL) 90 <145 mg/dL LAB CHEMISTRY METHOD 09/11/2024 10:25 AM [facility] Chol/HDL Ratio 2.5 0.0 - 4.4 LAB CHEMISTRY METHOD 09/11/2024 10:25 AM [facility] Blood Venous blood specimen / Unknown Venipuncture / Unknown 09/11/2024 8:11 AM EST 09/11/2024 8:11 AM EST C Howie Taylor MD LAB BLOOD ORDERABLES Final Res ult [facility] [address] [place] [address], [place] [phone] * (ABNORMAL) Comprehensive metabolic panel (09/11/2024 8:11 AM EST) Pathologist [facility] Sodium 138 133 - 145 mmol/L LAB CHEMISTRY METHOD 09/11/2024 10:25 AM [facility] Potassium 4.5 3.5 - 5.5 mmol/L LAB CHEMISTRY METHOD 09/11/2024 10:25 AM [facility] Chloride 105 96 - 110 mmol/L LAB CHEMISTRY METHOD 09/11/2024 10:25 AM [facility] CO2 29 21 - 32 mmol/L LAB CHEMISTRY METHOD 09/11/2024 10:25 AM [facility] Anion Gap 4 3 - 11 LAB CHEMISTRY METHOD 09/11/2024 10:25 AM [facility] Glucose 104(H) 70 - 100 mg/dL LAB CHEMISTRY METHOD 09/11/2024 10:25 AM [facility] BUN 16 5 - 25 mg/dL LAB CHEMISTRY METHOD 09/11/2024 10:25 AM [facility] Creatinine 0.72 0.50 - 1.10 mg/dL LAB CHEMISTRY METHOD 09/11/2024 10:25 AM [facility] eGFR 96 >=60 mL/min/1. 73m2 LAB CHEMISTRY METHOD 09/11/2024 10:25 AM [facility] Comment:Calculation based on the Chronic Kidney Disease Epidemiology Collaboration (CKD-EPI) equation refit without adjustment for race. BUN/Creatinine Ratio 22.2 LAB CHEMISTRY METHOD 09/11/2024 10:25 AM [facility] Calcium 9.8 8.5 - 10.5 mg/dL LAB CHEMISTRY METHOD 09/11/2024 10:25 AM [facility] AST (SGOT) 19 10 - 42 unit/L LAB CHEMISTRY METHOD 09/11/2024 10:25 AM [facility] ALT (SGPT) 31 10 - 60 unit/L LAB CHEMISTRY METHOD 09/11/2024 10:25 AM [facility] Alkaline Phosphatase 76 42 - 121 unit/L LAB CHEMISTRY METHOD 09/11/2024 10:25 AM [facility] Total Protein 7.4 6.0 - 8.0 g/dL LAB CHEMISTRY METHOD 09/11/2024 10:25 AM [facility] Albumin 4.4 3.2 - 5.0 g/dL LAB CHEMISTRY METHOD 09/11/2024 10:25 AM [facility] Total Bilirubin 0.6 0.0 - 1.4 mg/dL LAB CHEMISTRY METHOD 09/11/2024 10:25 AM [facility] Blood Venous blood specimen / Unknown Venipuncture / Unknown 09/11/2024 8:11 AM EST 09/11/2024 8:11 AM EST C Howie Taylor MD LAB BLOOD ORDERABLES Final Res ult [facility] [address] [place] [address], * SCREENING MAMMOGRAPHY BI 2-VIEW BREAST INC [...] Breast cancer risk category Low (<15%) Location: [facility], [address] [place] [address], [address], [phone] Procedure Note Darlene Alberts MD - 05/13/2024 [...] Breast cancer risk category Low (<15%) Location: [facility], [address] [place] [address], [address], [phone] Patti Hernández DO IMG XR PROCEDURES Final Resul t * Cervical Cancer Screening: HPV (11/30/2022) Cervical Cancer Screening: HPV negative, abstracted Historical Provider [facility] Final Result * Hepatitis C Screening (04/13/2013) Hepatitis C Screening abstracted us Historical Provider MD HEALTH MAINTENANCE Final Result from Last 3 Months or Most Recently Relevant to Health Maintenance Insurance [employer] [place] [employer] [place] Care Teams Cheesemaking Laborer Relationship Specialty Start Date End Date Jeannine Vera MD [address] [place] [address] PCP - General Internal Medicine 02/08/25
--- OUTSIDE RECORDS SUMMARY | 2025-05-13 17:35 | XMS_ITS | Patient Health Record ---
Author Organization [facility] Address [address] [place] [address] Care Team Providers Care Grain I Farmworker Name Role Phone Steven Taylor MD Primary Care Provider Unavail able Roseline Carreno Unavailable [phone] Allergies Allergen (clinical drug ingredient) Drug/Non Drug [...] Problem Acquired hammer toe of right foot (0040492196634919) Other hammer toe(s) (acquired), right foot (M20.41) Active confirmed Problem Acquired hammer toe of left foot (0923966834024528) Other hammer toe(s) (acquired), left foot (M20.42) Active confirmed Problem Plantar fascial fibromatosis (22168594) Plantar fascial fibromatosis (M72.2) Active confirmed Problem 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) Active confirmed Problem Pronation deformity of right foot (M21.6X1) Active confirmed Problem Raynaud's disease (146764341) Raynaud's phenomenon without gangrene (I73.00) Active confirmed Problem Localized, primary osteoarthritis of the ankle and/or foot (960214718) Arthritis of joint of lesser toe, left (M19.072) Active confirmed Problem Localized, primary osteoarthritis of the ankle and/or foot (858821383) Arthritis of joint of lesser toe, right (M19.071) Active confirmed Problem Plantar fascial fibromatosis (61531144) Plantar fasciitis, bilateral (M72.2) Active confirmed Vital Signs Blood pressure diastolic 71 mm Hg 09/08/2024 Height 5ft 7in in 09/08/2024 Blood pressure systolic 110 mm Hg 09/08/2024 Weight 178 lbs 09/08/2024 BMI 27.88 kg/m2 09/08/2024 Encounters Encounter Location Date Provider Diagnosis [address] [phone] 05/20/2024 Roseline Black Pain in right toe(s) [...] left foot M77.52 and Ganglion cyst M67.[address] [address] 07/14/2024 Roseline Black Pain in right foot M 79.671 ; Plantar fasciitis, bilateral M72.2 ; Other myositis of right foot M60.871 ; Bursitis of right foot M77.51 ; Pain in left foot M79.672 ; Other myositis of left foot M60.872 and Bursitis of left foot M77.[address] [facility] [address] 09/08/2024 Roseline Black Pain in right foot M 79.671 ; Plantar fasciitis, bilateral M72.2 ; Other myositis of right foot M60.871 ; Bursitis of right foot M77.51 ; Pain in left foot M79.672 ; Other myositis of left foot M60.872 and Bursitis of left foot M77.[address] [facility] [address] 05/20/2024 Roseline Black [facility] [address] 07/14/2024 [facility] [address] 10/16/2024 Roseline Black Assessments Encounter Date Diagnosis [...] X ray : Foot, right 3V 12/04/2012 [id number] NAIL, 6 OR MORE 03/17/2021 Insurance Providers Payer Name Payer Address Payer Phone Subscriber Number Group Number Insured Name Patient Relationship to Insured Coverage Start Date Coverage End Date Curtis Gandara [address] [place] [address] [id number] Stephaine Medina Self - patient is the insured Medical (General) History Medical History History ICD Code sciatica chicken pox back, hip, knee pain asthma Surgical History Surgery Date(Month/Year) right elbow surgery 2011 carpal tunnel surgery-right 07/2018
== END 2025-05-13 14:42 | disposition home or self-care (01) ==
LOC: HO.HNS 13:49
PROVIDERS: PCP Internal Medicine; Visit Provider Physician Assistant
DX: M48.061 Spinal stenosis, lumbar region without neurogenic claudication (principal)
CPT/HCPCS: 99024

== ENCOUNTER → 2025-05-13 13:56 | Outpatient (BNV) | payer BC, SELFPAY | PROVIDERS: Visit Provider Specialist | DX: M48.061 Spinal stenosis, lumbar region without neurogenic claudication (principal) | CPT/HCPCS: 72110 ==

== ENCOUNTER 2025-05-26 08:49 | Outpatient (AMB) | payer BC, SELFPAY ==
--- OUTSIDE RECORDS SUMMARY | 2024-10-21 04:00 | XMS_ITS ---
Author Organization [facility] Address [address] [place] [address] Care Team Providers Care Operations Research Scientist Name Role Phone Brandon HUBBARD, Steven Primary Care Provider Roseline Moya [phone] Encounters Encounter Location Date Provider Diagnosis [address] [address] 10/21/2024 Roseline Carreno Plan Of Treatment No Information Progress Notes * Stephanie MEDINA ADOB: [birth year] (60 yo F)Acc No.[id number]:10/21/2024 Progress Notes Patient: Stephanie SHAH Provider: Dannielle Carreno DPM :1965 A ge:59 Y S ex:Female Date:10/21/2024 Address:[address] [place], [place] [id number] Pcp:Steven Taylor MD Subjective: * Chief Complaints: [...] DPM Date: 0 10/21/2024 Generated for Codyi ng/Faxing/eTransmitting on: 1 09:37 AM EDT
--- NOTE | 2025-05-26 08:53 | MHC.OFFWIV ---
Intake Vital Signs 05/26/25 08:54 Height 5 ft 7 in Weight 170 lb BMI 26.6 BP 126/82 Blood Pressure Location Lt brachial Position Sitting Pulse 87 Pulse Source Pulse Oximeter Temp 97.8 F Temp Source Oral Pulse Oximetry (%) 98 Oxygen Delivery Method Room Air Intake Visit Reasons: EP Neck pain Intake Note: Patient presents with c/o right sided neck pain x2 days Patient Tobacco Use Status: Never used Tobacco Allergies azithromycin Allergy (Mild, Verified 05/26/25 08:56) Hives latex Allergy (Mild, Verified 05/26/25 08:56) Hives terbinafine Allergy (Mild, Verified 05/26/25 08:56) Hives HPI HPI Comments History of Present Illness Details History of Present Illness - The patient is a 60-year-old female presenting with neck stiffness and pain. - Neck stiffness began two days ago, worsening throughout the day and causing nocturnal disturbances. - Tingling in the hand noted, possibly due to sleeping position which has resolved. - History of back surgery and spacers placed in February, with recent stress potentially exacerbating symptoms. - She thinks that she could have slept wrong due to her back pain. - She has an old prescription for oxycodone after her surgery and she recently had to take a half tab due to pain. - She also has been stressed as well. - She denies numbness, tingling, shoulder pain, back pain, trauma or falls. Physical Exam General: Cooperative, healthy appearing, comfortable, no acute distress and well developed Orientation: Patient oriented x3 Limitations: No limitations Neck: Normal visual inspection and Yes full ROM. No midline spinous tenderness noted. No step offs noted. TTP of the right SCM. Respiratory: Normal respiratory effort and able to speak in complete sentences. Clear to auscultation bilaterally. No w/r/r noted. Cardiovascular: Regular rate and rhythm. Normal S1 and S2. No m/r/g noted. Skin: No rashes or lesions noted Neuro: Sensation is intact. Extremities: Normal to inspection, able to move arms. FROM of the shoulders. No click noted. No shoulder tenderness to palpation. FROM of the elbows and wrists bilaterally. Hand instrument repair specialist is intact. Strength is 5/5 on the UE. Patient was informed and verbally consented to the use of an ambient scribe for clinic note documentation during this visit. [facility] Medical History (Updated 04/01/25 @ 12:48 by Jeannine Vera MD) Anemia Anesthesia complication Back pain Anxiety Cervical radiculopathy Dyslipidemia Lumbar spinal stenosis Carpal tunnel syndrome of right wrist Osteoarthritis Hypercholesterolemia Impaired fasting glucose Eczema of both hands Essential hypertension Allergic rhinitis Mild intermittent asthma Surgical History Hx of cervical discectomy Hx of elbow surgery History of carpal tunnel surgery of right wrist History of dilatation and curettage Hx of colonoscopy Family History Maternal Grandfather Substance use disorder Social History Household Members: None Housing: House Are you a primary infant childcare provider to a significant other at home: No Do you presently have visiting nurse or other home services: No Patient Tobacco Use Status: Never used Tobacco e-Cigarette/Vaping Use: Never Used Advance Directives Date on File: 02/04/25 service: No Current occupational status: employed Cognitive needs: No Hearing needs: No Vision needs: Yes Review of Systems Const All systems reviewed & are unremarkable except as noted in HPI and below Physical Exam Vital Signs: Last Vital Signs Temp 97.8 F 05/26/25 08:54 Pulse 87 05/26/25 08:54 BP 126/82 05/26/25 08:54 Pulse Ox 98 05/26/25 08:54 Oxygen Delivery Method Room Air 05/26/25 08:54 BMI result Body Mass Index 26.6 Assessment & Plan Assessment & Plan (1) Neck pain: Code(s): M54.2 - Cervicalgia Plan Most likely muscle strain of the neck - Prescribed muscle relaxer and naproxen for pain management. - Recommended use of a heating pad and gentle neck exercises once pain is managed. - Advised short course of prednisone to reduce inflammation. - Suggested imaging if symptoms persist or worsen. - follow up with PCP Medications: New prednisone 40 mg (2 x 20 mg) PO DAILY 10 tabs 0RF 5 days cyclobenzaprine 5 mg PO Q8H PRN 20 tabs 0RF Muscle Spasm naproxen 500 mg PO Q12H PRN 20 tabs 0RF pain 7 days Coding Level of Care Code Est Pt Level 3 (59392) Diagnoses Neck pain M54.2
[2025-05-26 08:54] VITALS: BP 126/82; PULSE 87; TEMP 36.6; O2SAT 98; BMI 26.6
--- OUTSIDE RECORDS SUMMARY | 2025-05-26 09:37 | XMS_ITS | Clinical Summary ---
Author Organization [facility] Address [address] [phone] Phone Care Team Providers Care Nursing Aide Name Role Phone Steven Taylor MD Primary [...] file Medical Devices Not on file Insurance [facility] PPO BLUE [employer] OUT OF STATE PPO [employer] OF STATE PPO Member Subscriber Plan / Payer (Ef fective 2020-Present) Name:Stephanie Medina Relation to Subscriber:Self Name:Stephanie Medina Payer ID:[id number] ([facility]) Type:PPO Address: [place] [address] BLUE CROSS OUT OF [facility] PPO Member Subscriber Plan / Payer (Ef fective 2020-Present) Name:Stephanie Medina Relation to Subscriber:Self Name:Stephanie Medina Payer ID:[id number] ([facility]) Type:PPO Address: [id number] [place] [address] BLUE CROSS OUT OF STATE PPO [facility] OUT STATE PPO Care Teams Nursing Aide Relationship Specialty Start Date End Date Steven Taylor MD [address] [place] [address] PCP - General Internal Medicine 11/20/21 Additional Source Comments The information contained in this document represents components of the legal health record. It is not the complete legal health record.[facility]
--- OUTSIDE RECORDS SUMMARY | 2025-05-26 09:38 | XMS_ITS | Patient Health Record ---
Author Organization [facility] Address [address] [place] [address] Care Team Providers Care Refined Syrup Operator Name Role Phone Steven Taylor MD Primary Care Provider Unavail able Roseline Carreno Unavailable [phone] Allergies Allergen (clinical drug ingredient) Drug/Non Drug Allergy documented on EMR Reaction Allergy Type Onset Date Status LamISIL hives Drug Allergy Active azithromycin Zithromax Z-Dennis hives Drug Allergy Active Latex Unknown Drug Allergy Active Dog dander Dog Dander Unknown Allergy Active Dust Mites Unknown Allergy Active Shellfish (FN) Shellfish-derived Products Unknown Drug Allergy Active Reason For Referral No Information Medications Medication [...] Problem Acquired hammer toe of right foot (2356870781020561) Other hammer toe(s) (acquired), right foot (M20.41) Active confirmed Problem Acquired hammer toe of left foot (7179504186366318) Other hammer toe(s) (acquired), left foot (M20.42) Active confirmed Problem Plantar fascial fibromatosis (28929502) Plantar fascial fibromatosis (M72.2) Active confirmed Problem 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) Active confirmed Problem Pronation deformity of right foot (M21.6X1) Active confirmed Problem Raynaud's disease (282033998) Raynaud's phenomenon without gangrene (I73.00) Active confirmed Problem Localized, primary osteoarthritis of the ankle and/or foot (162446744) Arthritis of joint of lesser toe, left (M19.072) Active confirmed Problem Localized, primary osteoarthritis of the ankle and/or foot (710252900) Arthritis of joint of lesser toe, right (M19.071) Active confirmed Problem Plantar fascial fibromatosis (51446922) Plantar fasciitis, bilateral (M72.2) Active confirmed Vital Signs Blood pressure diastolic 71 mm Hg 09/08/2024 Height 5ft 7in in 09/08/2024 Blood pressure systolic 110 mm Hg 09/08/2024 Weight 178 lbs 09/08/2024 BMI 27.88 kg/m2 09/08/2024 Encounters Encounter Location Date Provider Diagnosis [address] [address] 07/14/2024 Roseline Black Pain in right foot M79.671 ; Plantar fasciitis, bilateral M72.2 ; Other myositis of right foot M60.871 ; Bursitis of right foot M77.51 ; Pain in left foot M79.672 ; Other myositis of left foot M60.872 and Bursitis of left foot M77.[address] [address] 09/08/2024 Roseline Black Pain in right foot M79.671 ; Plantar fasciitis, bilateral M72.2 ; Other myositis of right foot M60.871 ; Bursitis of right foot M77.51 ; Pain in left foot M79.672 ; Other myositis of left foot M60.872 and Bursitis of left foot M77.52 [facility] [address] [place] [address] 07/14/2024 Roseline Black [address] [address] 10/16/2024 Roseline Black Assessments Encounter Date Diagnosis (ICD Code) Assessment Notes Treatment Notes Treatment Clinical Notes Section Notes 07/14/2024 Pain in right foot (ICD-10 - M79.671) 07/14/2024 Plantar fasciitis, bilateral (ICD-10 - M72.2) 09/08/2024 Pain in right foot (ICD-10 - M79.671) 07/14/2024 Other myositis of right foot (ICD-10 - M60.871) 09/08/2024 Plantar fasciitis, bilateral (ICD-10 - M72.2) 09/08/2024 Other myositis of right foot (ICD-10 - M60.871) 07/14/2024 Bursitis of right foot (ICD-10 - M77.51) 07/14/2024 Pain in left foot (ICD-10 - M79.672) 09/08/2024 Bursitis of right foot (ICD-10 - M77.51) 07/14/2024 Other myositis of left foot (ICD-10 - M60.872) 09/08/2024 Pain in left foot (ICD-10 - M79.672) 07/14/2024 Bursitis of left foot (ICD-10 - M77.52) 09/08/2024 Other myositis of left foot (ICD-10 - M60.872) 09/08/2024 Bursitis of left foot (ICD-10 - M77.52) Plan Of Treatment Pending Test Test Name Order Date *Liver Function Test (LFT) 12/16/2020 X ray : Foot, left 3V 12/04/2012 X ray : Foot, right 3V 12/04/2012 [id number] NAIL, 6 OR MORE 03/17/2021 Insurance Providers Payer Name Payer Address Payer Phone Subscriber Number Group Number Insured Name Patient Relationship to Insured Coverage Start Date Coverage End Date Curtis Gandara [address] [place] [address] [id number] Stephanie Medina Self - patient is the insured Medical (General) History Medical History History ICD Code sciatica chicken pox back, hip, knee pain asthma Surgical History Surgery Date(Month/Year) right elbow surgery 2011 carpal tunnel surgery-right 07/2018
--- OUTSIDE RECORDS SUMMARY | 2025-05-26 09:38 | XMS_ITS | Encounter Summary ---
Author Organization [facility] Address [address] [place] [address] Phone Care Team Providers Care Health Care Manager Name Role Phone Steven Taylor MD Primary Care Provider + Encounter Details Date Type Department Care Team (Late st Contact Info) Description 11/17/2021 Transcribe Orders Virtual Department [address] [place] [address] Shine Faulkner, DO [address] [facility], [address] [place] [address] [email or web address] [email or web address], unspecified type Social History Tobacco Use [...] type documented in this encounter Care Teams Health Care Manager Relationship Specialty Start Date End Date Steven Taylor MD [address] [place] [id number] PCP - General Internal Medicine 11/20/21 documented as of this encounter Additional Source Comments The information contained in this document represents components of the legal health record. It is not the complete legal health record.[facility]
--- OUTSIDE RECORDS SUMMARY | 2025-05-26 09:38 | XMS_ITS | Clinical Summary ---
Author Organization [facility] [address] [facility] [address] Address [address] [place] [address] Phone Care Team Providers Care Children'S Service Worker Name Role Phone Jeannine Vera MD Primary [...] right wrist 03/24/2018 Overview (07/01/2024): NCT at [facility] Snoring 06/12/2017 Overview (07/01/2024): 05/2017 Home Sleep Study did not reveal sleep apnea. Hot flashes, menopausal 09/19/2015 Asthma 04/26/2014 Vitamin D insufficiency 04/13/2013 Cervical radiculopathy 04/09/2011 Hypertension 12/04/2010 Pure hypercholesterolemia 09/19/2007 Allergic rhinitis 12/31/2005 Encounters Date Type Department Care Team Description 05/10/2025 9:53 AM EDT Anesthesia Event [facility] [address] [place] [address] Bernard Headley MD 05/10/2025 9:17 AM EDT - 05/10/2025 11:59 PM EDT Hospital Encounter [facility] [address] [place] [address] Ramos Preston MD Georgette, Nathaniel, CRNA Dasilva, John E, MD Colon cancer screening Discharge Disposition: Home or Self Care from Last 3 Months Immunizations Immunization Administration Dates Next Due H1N1 Inj Preservative Free 06/16/2009 Hepatitis B (Uyutzcp-P-Blfjn , Recombivax HB-Adult) 19yo and older 09/24/2005,08/20/2005 [...] syndrome of right wrist; COMMENT: NCT at [facility] Osteoarthritis 05/20/2018 DX:Osteoarthriti s Family History [...] care for your loved ones. For example, children's ministry director or elderly care for an older [...] this topic Medical Devices Implanted Type Area Small Engine Specialist Device Identifier Shelf Expiration Date Model / [...] Maintenance Results * COLONOSCOPY Anesthesia - MAC; [facility] ENDOSCOPY (05/10/2025 10:12 AM EDT) [...] office PRN. Narrative 05/10/2025 10:13 AM EDT [facility] Patient Name: Chon Medina Procedure Date: [...] malignant neoplasm of colon CPT copyright 2020 [employer]. All rights reserved. The codes documented in this report are preliminary and upon manager of disaster recovery review may be revised to meet current compliance requirements. Ramos Preston MD 05/10/2025 10:13:40 AM This report has been signed electronically.Ramos Preston MD Number of Addenda: 0 Note Initiated On: 05/10/2025 9:40 AM Scope In: Scope Out: Endoscopy Department at [facility] - [address] [place] [phone] Procedure Note Ramos Preston MD - 05/10/2025 [facility] Patient Name: Chon Medina Procedure Date: [...] for malignantneoplasm of colon CPT copyright 2020 [employer]. All rights reserved. The codes documented in this report are preliminary and upon manager of disaster recovery reviewmay be revised to meet current compliance requirements. Ramos Preston MD 05/10/2025 10:13:40 AM This report has been signed electronically.Ramos Preston MD Number of Addenda: 0 Note Initiated On: 05/10/2025 9:40 AM Scope In: Scope Out: Endoscopy Department at [facility] - [address] [place] [phone] IMPRESSION: - Diverticulosis in the sigmoid colon. [...] mg/dL LAB CHEMISTRY METHOD 09/11/2024 10:25 AM [facility] Triglycerides 130 0 - 150 mg/dL LAB CHEMISTRY METHOD 09/11/2024 10:25 AM [facility] HDL 62 >=40 mg/dL LAB CHEMISTRY METHOD 09/11/2024 10:25 AM EST [facility] LDL Calculated 64 0 - 100 mg/dL LAB CHEMISTRY METHOD 09/11/2024 10:25 AM EST [facility] VLDL Cholesterol Toney 26 mg/dL LAB CHEMISTRY METHOD 09/11/2024 10:25 AM EST [facility] Non HDL Chol. (LDL+VLDL) 90 <145 mg/dL LAB CHEMISTRY METHOD 09/11/2024 10:25 AM [facility] Chol/HDL Ratio 2.5 0.0 - 4.4 LAB CHEMISTRY METHOD 09/11/2024 10:25 AM [facility] Blood Venous blood specimen / Unknown Venipuncture / Unknown 09/11/2024 8:11 AM EST 09/11/2024 8:11 AM EST [place] Howie Taylor MD LAB BLOOD ORDERABLES Final Res ult [facility] [address] [place] [address], [place] [phone] * (ABNORMAL) Comprehensive metabolic panel (09/11/2024 8:11 AM EST) Sodium 138 133 - 145 mmol/L LAB CHEMISTRY METHOD 09/11/2024 10:25 AM [facility] Potassium 4.5 3.5 - 5.5 mmol/L LAB CHEMISTRY METHOD 09/11/2024 10:25 AM [facility] Chloride 105 96 - 110 mmol/L LAB CHEMISTRY METHOD 09/11/2024 10:25 AM [facility] CO2 29 21 - 32 mmol/L LAB CHEMISTRY METHOD 09/11/2024 10:25 AM [facility] Anion Gap 4 3 - 11 LAB CHEMISTRY METHOD 09/11/2024 10:25 AM [facility] Glucose 104(H) 70 - 100 mg/dL LAB CHEMISTRY METHOD 09/11/2024 10:25 AM [facility] BUN 16 5 - 25 mg/dL LAB CHEMISTRY METHOD 09/11/2024 10:25 AM [facility] Creatinine 0.72 0.50 - 1.10 mg/dL LAB CHEMISTRY METHOD 09/11/2024 10:25 AM [facility] eGFR 96 >=60 mL/min/1. 73m2 LAB CHEMISTRY METHOD 09/11/2024 10:25 AM [facility] Comment:Calculation based on the Chronic Kidney Disease Epidemiology Collaboration (CKD-EPI) equation refit without adjustment for race. BUN/Creatinine Ratio 22.2 LAB CHEMISTRY METHOD 09/11/2024 10:25 AM [facility] Calcium 9.8 8.5 - 10.5 mg/dL LAB CHEMISTRY METHOD 09/11/2024 10:25 AM [facility] AST (SGOT) 19 10 - 42 unit/L LAB CHEMISTRY METHOD 09/11/2024 10:25 AM [facility] ALT (SGPT) 31 10 - 60 unit/L LAB CHEMISTRY METHOD 09/11/2024 10:25 AM [facility] Alkaline Phosphatase 76 42 - 121 unit/L LAB CHEMISTRY METHOD 09/11/2024 10:25 AM [facility] Total Protein 7.4 6.0 - 8.0 g/dL LAB CHEMISTRY METHOD 09/11/2024 10:25 AM [facility] Albumin 4.4 3.2 - 5.0 g/dL LAB CHEMISTRY METHOD 09/11/2024 10:25 AM [facility] Total Bilirubin 0.6 0.0 - 1.4 mg/dL LAB CHEMISTRY METHOD 09/11/2024 10:25 AM [facility] Blood Venous blood specimen / Unknown Venipuncture / Unknown 09/11/2024 8:11 AM EST 09/11/2024 8:11 AM EST [place] Howie Taylor MD LAB BLOOD ORDERABLES Final Res ult [facility] [address] [place] [address], * SCREENING MAMMOGRAPHY BI 2-VIEW BREAST INC [...] Breast cancer risk category Low (<15%) Location: [facility], [address] [place] [address], [address], [phone] Procedure Note Darlene Alberts MD - 05/13/2024 [...] Breast cancer risk category Low (<15%) Location: [facility], [address] [place] [address], [address], [phone] Patti Hernández DO IMG XR PROCEDURES Final Resul t * Cervical Cancer Screening: HPV (11/30/2022) Pathologist [facility] Cervical Cancer Screening: HPV negative, abstracted Historical Provider HEALTH MAINTENANCE Final Result * Hepatitis C Screening (04/13/2013) Hepatitis C Screening abstracted Historical Provider HEALTH MAINTENANCE Final Result from Last 3 Months or Most Recently Relevant to Health Maintenance Insurance [employer] [place] (ANTHEM) [employer] [place] (ANTHEM) Care Teams Children'S Service Worker Relationship Specialty Start Date End Date Jeannine Vera MD [address] [facility] [place] [address] PCP - General Internal Medicine 02/08/25
== END 2025-05-26 09:53 | disposition home or self-care (01) ==
PROVIDERS: PCP Internal Medicine; Visit Provider Physician Assistant Medical
DX: M54.2 Cervicalgia (principal)

== ENCOUNTER 2025-07-07 08:29 | Outpatient (AMB) | payer BC, SELFPAY ==
--- NOTE | 2025-07-07 08:24 | A.OFFPC_ITS ---
Intake Visit Reasons: hair loss/thinning Installation Supervisor Required: No Allergies azithromycin Allergy (Mild, Verified 07/07/25 08:55) Hives latex Allergy (Mild, Verified 07/07/25 08:55) Hives terbinafine Allergy (Mild, Verified 07/07/25 08:55) Hives Medication List - Last Reconciled 07/07/25 by Jeannine Vera MD albuterol sulfate 90 mcg/actuation 2 puffs inhalation Q4H PRN cyclobenzaprine 5 mg PO Q8H PRN fexofenadine 180 mg PO DAILY PRN fluticasone furoate 27.5 mcg/actuation (Flonase Sensimist) 1 spray intranasal BEDTIME fluticasone furoate-vilanterol 100-25 mcg/dose (Breo Ellipta) 1 ea inhalation QAM levocetirizine (Xyzal) 5 mg PO BEDTIME losartan 50 mg PO BEDTIME melatonin 3 mg PO BEDTIME PRN multivitamin (Daily Multi-Vitamin tablet) 1 tab PO BEDTIME semaglutide (Ozempic) 0.5 mg subcut QWEEK simvastatin 10 mg PO BEDTIME Tobacco use date assessed: 07/07/25 Dental Screening Dental Screen Date: 07/07/25 Did you have a dental visit in the last 12 months?: Yes Did you have a dental problem in the last 6 months where you did not have access to dental care?: No Was dental information given to patient?: Patient has dentist HPI hair loss/thinning HPI Details The patient is a 60 year old female presenting for follow-up on lab results and management of anemia, via telehealth. She has been experiencing symptoms of anemia including feeling very exhausted, hair loss, and cold sensation in her hands and feet. Her hair has become very thin. She denies palpitations. The patient's fatigue is reportedly getting slightly better in the mornings, but is still present. Lab work in January was normal with a hemoglobin of 12, but it dropped to 10 in February. Subsequent labs from April 03 showed her blood count had increased to 11.9. The patient was not on iron supplementation after her surgery and only recently started taking 325 mg (65 mg elemental) of iron last week after realizing her multivitamin did not contain it. The patient was diagnosed with pre-diabetes and takes semaglutide 0.5 mg for weight loss through a program in [place]. She was previously on Mounjaro. Her vitamin D level improved from a deficient level of 19 to 43, and her CRP, an inflammatory marker, decreased from 3.8 to 1. Her insulin level has also decreased. Her HbA1c has improved from 6.3 to 5.4%. She is postmenopausal. She is also on simvastatin and is due for a cholesterol check. [facility] Medical History Hair thinning Anemia Anesthesia complication Back pain Anxiety Cervical radiculopathy Dyslipidemia Lumbar spinal stenosis Carpal tunnel syndrome of right wrist Osteoarthritis Hypercholesterolemia Impaired fasting glucose Eczema of both hands Essential hypertension Allergic rhinitis Mild intermittent asthma Surgical History Hx of cervical discectomy Hx of elbow surgery History of carpal tunnel surgery of right wrist History of dilatation and curettage Hx of colonoscopy Family History Maternal Grandfather Substance use disorder Social History Household Members: None Housing: House Are you a primary healthcare specialist to a significant other at home: No Do you presently have visiting nurse or other home services: No Patient Tobacco Use Status: Never used Tobacco e-Cigarette/Vaping Use: Never Used Advance Directives Date on File: 02/04/25 service: No Current occupational status: employed Cognitive needs: No Hearing needs: No Vision needs: Yes Questionnaire PHQ-9 Over the last 2 weeks, how often have you been bothered by any of the following problems? 1. Little interest or pleasure in doing things: not at all 2. Feeling down, depressed, or hopeless: not at all 3. Trouble falling or staying asleep, or sleeping too much: not at all 4. Feeling tired or having little energy: not at all 5. Poor appetite or overeating: not at all 6. Feeling bad about yourself - or that you are a failure or have let yourself or your family down: not at all 7. Trouble concentrating on things, such as reading the newspaper or watching television: not at all 8. Moving or speaking so slowly that other people could have noticed. Or the opposite - being so fidgety or restless that you have been moving around a lot more than usual: not at all 9. Thoughts that you would be better off or of hurting yourself in some way: not at all Total score: 0 Depression Screening Interpretation: Negative Depression Screening Done: Yes Source: Developed by Drs. Ivan Becker, Nayana Julian, Sharan Morrow and colleagues, with an educational yunior from [employer]. Thrive Questionnaire Date Thrive assessed: 01/28/25 I am a: Patient What is your living situation today?: I have a place to live, but I am worried about losing it in the future Within the past 12 months, did the food you bought not last and you didn't have the money to get more?: Never true Within the past 12 months, did you worry whether your food would run out before you got money to buy more?: Never true Do you have trouble paying for medicines?: No Do you have trouble getting transportation to medical appointments?: No Do you have trouble paying your heating and electricity bill?: No Do you have trouble taking care of your child, family member or friend?: No Do you have trouble with day-to-day activities such as bathing, preparing meals, shopping, managing finances, etc.?: No Are you currently unemployed and looking for a job?: No Are you interested in more education?: No THRIVE Score: 1 AUDIT C Alcohol Use Questionnaire (AUDIT-C) 1. How often do you have a drink containing alcohol?: Never Total Score: 0 SALVADOR-7 AMB Questionnaire SALVADOR-7 Date SALVADOR - 7 assessed: 02/12/25 Feeling nervous, anxious, or on edge: 1 = Several days Not being able to stop or control worryin = Several days Worrying too much about different things: 1 = Several days Trouble relaxin = Not at all Being so restless that it is hard to sit still: 0 = Not at all Becoming easily annoyed or irritable: 1 = Several days Feeling afraid as if something awful might happen: 0 = Not at all Total SALVADOR-7 score (0-4 normal; 5-9 mild; 10-14 moderate; 15-21 severe): 4 Source: Developed by Nayana Huber.W. Eliel, Sharan Morrow and colleagues, with an educational yunior from [employer]. Review of Systems Const Reports as per HPI and Reports no additional complaints ENT Reports no additional complaints Card Denies chest pain at rest, Denies chest pain with activity, Denies irregular heart rhythm, Denies lightheadedness and Denies dyspnea Resp Denies cough and Denies dyspnea GI Reports no additional complaints Reports no additional complaints Musc Reports no additional complaints Skin/Breast Details: Sees [facility] annually Neuro Reports no additional complaints Psych Reports no additional complaints Endo Reports no additional complaints Jose A/Lymph Reports no additional complaints Aller/Immun Reports no additional complaints Physical exam (Primary Care) Tobacco/Smoking Status: Tobacco use Status Tobacco use date assessed 07/07/25 07/07/25 08:28 Patient Tobacco Use Status Never used Tobacco 07/07/25 08:28 e-Cigarette/Vaping Use Never Used 07/07/25 08:28 PHQ-9: PHQ-9 Score PHQ-9: Total score 0 07/07/25 09:04 Depression Screening Interpretation: Negative Thrive Assessment: Date of Thrive Assessment Date Thrive assessed 01/28/25 07/07/25 08:28 Telehealth Telehealth Telehealth [facility]: [facility] Location of provider rendering services: practice address Location of patient: address on file Patient Identification confirmed using: Name, : Yes Telehealth method: video Patient verbally consented to treatment: Yes Patient verbally consented to billing insurance company: Yes Patient informed of any privacy concerns related to visit: Yes Minutes spent on Phone/Video with Pt.: 15 Coding Level of Care Code Tele Est Pt Level 4 (41490) Diagnoses Hair thinning L65.9 Sensation of feeling cold R68.89 Fatigue, unspecified type R53.83 Fatigue type: unspecified Dyslipidemia E78.5 Assessment & Plan Assessment & Plan (1) Hair thinning: Code(s): L65.9 - Nonscarring hair loss, unspecified Category: Medical Plan: Will check another CBC and iron profile as well as TSH with reflex free T4 and vitamin B12 and folic acid level (2) Sensation of feeling cold: Code(s): R68.89 - Other general symptoms and signs Plan: Due to being anemia, will check another CBC and iron panel (3) Fatigue: Code(s): R53.83 - Other fatigue Qualifiers: Fatigue type: unspecified Qualified Code(s): R53.83 - Other fatigue Plan: Will check another CBC and iron profile as well as TSH with reflex free T4 and vitamin B12 and folic acid level (4) Dyslipidemia: Code(s): E78.5 - Hyperlipidemia, unspecified Category: Medical Plan: Repeat fasting lipid panel ordered, continue simvastatin 10 mg at bedtime Orders: Orders Complete Blood Count Auto Diff Today E78.5 - Hyperlipidemia, unspecified, L65.9 - Nonscarring hair loss, unspecified, R53.83 - Other fatigue, R68.89 - Other general symptoms and signs, Z78.0 - Asymptomatic menopausal state Lipid Panel Today E78.5 - Hyperlipidemia, unspecified, L65.9 - Nonscarring hair loss, unspecified, R53.83 - Other fatigue, R68.89 - Other general symptoms and signs, Z78.0 - Asymptomatic menopausal state IRON PROFILE Today E78.5 - Hyperlipidemia, unspecified, L65.9 - Nonscarring hair loss, unspecified, R53.83 - Other fatigue, R68.89 - Other general symptoms and signs, Z78.0 - Asymptomatic menopausal state TSH reflex Free T4 Today E78.5 - Hyperlipidemia, unspecified, L65.9 - Nonscarring hair loss, unspecified, R53.83 - Other fatigue, R68.89 - Other general symptoms and signs, Z78.0 - Asymptomatic menopausal state Vitamin B12 and Folate Today E78.5 - Hyperlipidemia, unspecified, L65.9 - Nonscarring hair loss, unspecified, R53.83 - Other fatigue, R68.89 - Other general symptoms and signs, Z78.0 - Asymptomatic menopausal state Vitamin D 25-OH Total Today E78.5 - Hyperlipidemia, unspecified, L65.9 - Nonscarring hair loss, unspecified, R53.83 - Other fatigue, R68.89 - Other general symptoms and signs, Z78.0 - Asymptomatic menopausal state
== END 2025-07-07 11:55 | disposition home or self-care (01) ==
LOC: HO.HMCC 08:29
PROVIDERS: PCP Internal Medicine; Visit Provider Internal Medicine
DX: L65.9 Nonscarring hair loss, unspecified (principal); R68.89 Other general symptoms and signs; R53.83 Other fatigue; E78.5 Hyperlipidemia, unspecified

== ENCOUNTER 2025-07-09 07:46 | Outpatient (REF) | payer BC, SELFPAY ==
[2025-07-09 10:12] LABS: MANUAL DIFF FLAG NO
[2025-07-09 10:22] LABS: Hematocrit 39.1 % (37.0-47.0); Hemoglobin 12.9 g/dl (12.0-16.0); Imm Gran Abs Auto 0.02 X10*3/uL (0.00-0.03); Imm Gran Pct Auto 0.3 % (0.0-0.4); Lymphocytes Absolute Auto 1.6 X10*3/uL (1.2-4.9); Mean Corpuscular HGB Conc 33.0 g/dl (31.0-35.0); Mean Corpuscular Hemoglobin 28.7 pg (27.0-33.0); Mean Corpuscular Volume 86.9 fL (80.0-98.0); NRBC Abs Auto 0.000 X10*3/uL (0.0-0.012); NRBC Pct Auto 0.0 /100WBC (0.0-0.2); Platelet Count 280 X10*3/uL (160-400); Red Blood Count 4.50 X10*6/uL (4.20-5.50); White Blood Count 6.2 X10*3/uL (4.8-10.8)
[2025-07-09 10:49] LABS: Cholesterol 172 mg/dL (<200); HDL Cholesterol 73 mg/dL (>40); Iron 118 mcg/dL (30-160); Percent Iron Saturation 40 % (15-50); Total Iron Binding Capacity 292 mcg/dL (228-428); Triglycerides 88 mg/dL (<150); Unsaturated Iron Binding 174 ug/dL
[2025-07-09 11:17] LABS: Folate 13.9 ng/mL (> or = 4.0); Vitamin B12 982 pg/mL (200-900)
== END 2025-07-09 07:47 | disposition home or self-care (01) ==
LOC: HO.HMGCLDS 07:46
PROVIDERS: PCP Internal Medicine; Visit Provider Internal Medicine
DX: R53.83 Other fatigue (principal); L65.9 Nonscarring hair loss, unspecified; E78.5 Hyperlipidemia, unspecified; R68.89 Other general symptoms and signs; Z78.0 Asymptomatic menopausal state; Z13.21 Encounter for screening for nutritional disorder
CPT/HCPCS: 36415; 80061; 82306; 82607; 82746; 83540; 84443; 85025

== ENCOUNTER 2025-07-12 13:04 | Outpatient (AMB) | payer BC, SELFPAY ==
--- NOTE | 2025-07-12 13:06 | A.SPINEOV_ITS ---
Intake Visit Reasons: 2 months f/up with xrays Intake Note: Ms. Hutchinson is here today for her 2 months F/u with x-rays. Allergies azithromycin Allergy (Mild, Verified 07/07/25 08:55) Hives latex Allergy (Mild, Verified 07/07/25 08:55) Hives terbinafine Allergy (Mild, Verified 07/07/25 08:55) Hives Assessment & Plan Assessment & Plan (1) Spondylolisthesis, lumbar region: Code(s): M43.16 - Spondylolisthesis, lumbar region Category: Medical Plan Mrs hutchinson is here in follow up. She has been doing great. She is getting a little bit of back pain at times when she is sleeping or sitting too long but for the most part goes away as soon as she gets up and starts walking. She has recovered beautifully. Her x-rays show stable placement of the hardware. At this point she is far enough out from surgery, I do not have any restrictions for her and she can be activities as tolerated. I can see her down the road if something changes. Victor Manuel Salazar MD, PhD [facility] Coding Level of Care Code Global (52488) Diagnoses Spondylolisthesis, lumbar region M43.16
== END 2025-07-12 14:41 | disposition home or self-care (01) ==
LOC: HO.HNS 13:05
PROVIDERS: PCP Internal Medicine; Visit Provider Physician Assistant
DX: M43.16 Spondylolisthesis, lumbar region (principal)
CPT/HCPCS: 99213

== ENCOUNTER 2025-07-12 13:04 | Outpatient (REF) | payer BC, SELFPAY ==
--- OUTSIDE RECORDS SUMMARY | 2024-10-21 03:00 | XMS_ITS ---
Author Organization [facility] Address [address] [place] [address] Care Team Providers Care Wage And Salary Specialist Name Role Phone Brandon HUBBARD, Steven Primary Care Provider Roseline Moya [phone] Encounters Encounter Location Date Provider Diagnosis [address] [address] 10/21/2024 Roseline Carreno Plan Of Treatment No Information Progress Notes * Stephanie MEDINA ADOB: [birth year] (60 yo F)Acc No.[id number]:10/21/2024 Progress Notes Patient: Stephanie SHAH Provider: Dannielle Carreno DPM :1965 A ge:59 Y S ex:Female Date:10/21/2024 Address:[address] [place], [place] [id number] Pcp:Steven Taylor MD Subjective: * Chief Complaints: * * Medical History: Objective: * Vitals: Assessment: Plan: * Treatment: * Images: * The named appointment provid er may or may not be the originator of this progress note, and it is not deemed complete until electronically signed by the appointment provider. Sign off status: Pending * Provider: Dannielle Carreno DPM Date: 0 10/21/2024 Generated for Codyi ng/Fasruthig/eTransmitting on: 1 09/12/2024 07:10 PM EST
--- NOTE | ~2025-07-12 | XR_ITS ---
Examination: CR Xr Lumbar Spine 4v Min Technique: AP, and lateral: Flexion, neutral, and extension view x-rays of the lumbar spine. Prior: 05/13/2025 Indication: M48.061 - Spinal stenosis, lumbar region without neurogenic claudication FINDINGS: Moderate stool is present in the right colon. There are 5 non-rib bearing lumbar segments. There is 14 degrees levoscoliosis with apex at L2-3. Rotational component is mild. T12-L1: There is mild to moderate disc space narrowing with minimal endplate sclerosis. L1-L2: There is moderate disc space narrowing. There is subtle retrolisthesis. L2-L3: There is minimal disc space narrowing and subtle retrolisthesis L3-L4: There is mild disc space narrowing and subtle anterolisthesis L4-L5: Level is fixed with posterior pedicle screws and rods. There is nearby spacer without subsidence. There is grade 1 anterolisthesis. L5-S1: There is mild disc space narrowing and subtle anterolisthesis. During flexion and extension, there is no significant instability. XR/XR lumbar spine 4V min IMPRESSION: L4-5: Posterior lumbar interbody fusion with interbody spacer and grade 1 anterolisthesis that does not demonstrate instability on x-ray L1-2 demonstrates moderate disc space narrowing with subtle retrolisthesis. Electronically signed by: Jama Ortiz MD 07/12/2025 05:21 PM ADELE
--- OUTSIDE RECORDS SUMMARY | 2025-07-12 19:09 | XMS_ITS | Encounter Summary ---
Author Organization [facility] Prior to 05/29/2024 Address [address] [place] [address] Care Team Providers Care Lithographic Press Operator Name Role Phone Steven Taylor MD Primary Care Provider Encounter Details Date Type Department Care Team Description 10/02/2023 Tape Keller Operator Report Medical Records [address] [place] [address] Vy Saini NP Social History Tobacco Use Types Packs/Day Years [...] on filedocumented in this encounter Care Teams Lithographic Press Operator Relationship Specialty Start Date End Date Steven Taylor MD [address] [place], [place] [id number] PCP - General Internal Medicine 10/20/20 documented as of this encounter
--- OUTSIDE RECORDS SUMMARY | 2025-07-12 19:09 | XMS_ITS | Encounter Summary ---
Author Organization [employer] [facility] Prior to 05/29/2024 Address [address] [place] [address] Care Team Providers Care Director Business Travel Name Role Phone Madelaine Ocasio MD Primary Care Provider Unavailable Steven Taylor MD Primary Care Provider Encounter Details Date Type Department Care Team Description 10/17/2017 Low Voltage Electrician Report Medical Records [address] [place] [address] Howie Esteves Social History Tobacco Use Types Packs/Day Years Used Date Smoking Tobacco: Never Smokeless Tobacco: Never Alcohol Use Standard Drinks/Week Comments Yes 0 (1 standard drink = 0.6 oz pur e alcohol) rare Sex Assigned at Date Recorded Not on file Job Start Date Occupation Industry Not on file Not on file Not on file documented as of this encounter Plan of Treatment Not on file documented as of this encounter Visit Diagnoses Not on filedocumented in this encounter Care Teams Director Business Travel Relationship Specialty Start Date End Date Madelaine Ocasio MD PCP - General 04/19/0610/19 Steven Taylor MD [address] [place] [address] PCP - General Internal Medicine 10/20/20 documented as of this encounter
--- OUTSIDE RECORDS SUMMARY | 2025-07-12 19:09 | XMS_ITS | Encounter Summary ---
Author Organization [email or web address] [facility] Prior to 05/29/2024 Address [address] [place] [address] Care Team Providers Care Pharmacy Operations Coordinator Name Role Phone Madelanie Ocasio MD Primary Care Provider Unavailable Steven Taylor MD Primary Care Provider Encounter Details Date Type Department Care Team Description 08/26/2017 Animal Warden Report Medical Records [address] [place] [address] Ahsan Joseph Social History Tobacco Use Types Packs/Day Years [...] on filedocumented in this encounter Care Teams Pharmacy Operations Coordinator Relationship Specialty Start Date End Date Madelaine Ocasio MD PCP - General 04/19/0610/19 Steven Taylor MD [address] [place] [address] PCP - General Internal Medicine 10/20/20 documented as of this encounter
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
--- OUTSIDE RECORDS SUMMARY | 2025-07-12 19:09 | XMS_ITS | Encounter Summary ---
Author Organization [facility] Prior to 05/29/2024 Address [address] [place] [address] Care Team Providers Care Scientific Technical Writer Name Role Phone Steven Taylor MD Primary Care Provider Encounter Details Date Type Department Care Team Description 05/10/2024 Painter Set Report Medical Records [address] [place] [id number] Abstract, Provider Social History Tobacco Use Types [...] on filedocumented in this encounter Care Teams Scientific Technical Writer Relationship Specialty Start Date End Date Steven Taylor MD [address] [place] [address] PCP - General Internal Medicine 10/20/20 documented as of this encounter
--- OUTSIDE RECORDS SUMMARY | 2025-07-12 19:09 | XMS_ITS | Encounter Summary ---
Author Organization [facility] Prior to 05/29/[address] [place] [address] Care Team Providers Care Screedman/Laborer Name Role Phone Steevn Taylor MD Primary Care Provider Reason for Visit * Reason Onset Date Comments REFERRAL 10/22/2023 Encounter Details Date Type Department Care Team Description 10/22/2023 Telephone Adult Medicine - [place] [address] [place] [address] Steven Taylor MD [address] [place], [place] [phone] REFERRAL Social History Tobacco Use Types Packs/Day Years [...] encounter Miscellaneous Notes * Telephone Encounter - Steven Taylor MD - 10/22/2023 11:53 AM EDT I do not know what to tell her. She is not due for colonoscopy until end of next year. Most likely her insurance is not aware of her previous testing. Perhaps there is some other misunderstanding between her and her insurance. She should let them know that she had a negative colonoscopy on 05/02/2015. There is no way her insurance is going to insist on an invasive test that is not indicated. If necessary we can provide her with a copy of the colonoscopy report. * Telephone Encounter - Lenora Decker M.A. - 10/22/2023 11:48 AM EDT Called and informed the pt and she stated that the insurance company is insisting that she needs toget this done or she will be knocked off of the insurance. They also told her that they will pay for it * Telephone Encounter - Steven Taylor MD - 10/22/2023 11:17 AM EDT She is not due until the end of next year. * Telephone Encounter - Lenora Bird - 10/22/2023 9:46 AM EDT Pt will go to our gastro * Telephone Encounter - Lenora Bird - 10/22/2023 9:44 AM EDT Pts insurance tells her she is due for her colonoscopy - pt looking for a referral - pt will goo documented in this encounter Plan of Treatment Not on file documented as of this encounter Visit Diagnoses Diagnosis Colon cancer screening Special screening for malignant neoplasms, colon documented in this encounter Care Teams Screedman/Laborer Relationship Specialty Start Date End Date Steven Taylor MD [address] [place] [address] PCP - General Internal Medicine 10/20/20 documented as of this encounter
--- OUTSIDE RECORDS SUMMARY | 2025-07-12 19:10 | XMS_ITS | Encounter Summary ---
Author Organization [facility] Prior to 05/29/2024 Address [address] [place] [address] Care Team Providers Care Cookie Breaker Name Role Phone Madelaine Ocasio MD Primary Care Provider Unavailable Steven Taylor MD Primary Care Provider Reason for Visit * Reason Onset Date Comments medication problems 10/14/2019 Encounter Details Date Type Department Care Team Description 10/14/2019 Telephone Adult Medicine - [address] [address] Madelaine Ocasio MD medication problems Social History Tobacco Use Types Packs/Day Years [...] encounter Miscellaneous Notes * Telephone Encounter - Rachel Lubin L.P.N. - 10/20/2019 10:10 AM EDT Patient advised to call when ready for re fill. * Telephone Encounter - Rosana Neves - 10/20/2019 9:37 AM EDT Pt is calling. States that [facility] has this RX. She would like additional refill sent to [facility]. Please advise. * Telephone Encounter - Rachel Lubin L.P.N. - 10/15/2019 8:40 AM EDT [facility] does not have [facility] stock, pt requesting send to [facility] until [facility] stock. Orders pended if appropriate. * Telephone Encounter - Berta Camarena - 10/14/2019 3:25 PM EDT Who is calling? The patient Name of the medication losartan (COZAAR) 50 MG tablet What is the specific problem or interaction? No longer being manufactured, please advise and prescribe alternative If the patient is having a problem with taking the med - how long has the problem been going on? N/A documented in this encounter Plan of Treatment Not on file documented as of this encounter Visit Diagnoses Not on filedocumented in this encounter Care Teams Cookie Breaker Relationship Specialty Start Date End Date [place]-Madelaine Marquez MD PCP - General 04/19/0610/19 Steven Taylor MD [address] [place] [address] PCP - General Internal Medicine 10/20/20 documented as of this encounter
--- OUTSIDE RECORDS SUMMARY | 2025-07-12 19:10 | XMS_ITS | Encounter Summary ---
Author Organization [facility] [employer] Prior to 05/29/2024 Address [address] [place] [address] Care Team Providers Care Classroom Paraprofessional Name Role Phone Madelaine Ocasio MD Primary Care Provider Unavailable Steven Taylor MD Primary Care Provider Encounter Details Date Type Department Care Team Description 02/26/2011 Reduction Furnace Operator Helper Report Medical Records [address] [place] [address] Shine Faulkner Social History Tobacco Use Types Packs/Day Years Used Date Smoking Tobacco: Never Smokeless Tobacco: Never Alcohol Use Standard Drinks/Week Comments Yes 0 (1 standard drink = 0.6 oz pur e alcohol) OCCASSIONALLY Sex Assigned at Date Recorded Not on file Job Start Date Occupation Industry Not on file Not on file Not on file documented as of this encounter Plan of Treatment Not on file documented as of this encounter Visit Diagnoses Not on filedocumented in this encounter Care Teams Classroom Paraprofessional Relationship Specialty Start Date End Date Madelaine Ocasio MD PCP - General 04/19/0610/19 Steven Taylor MD [address] [place] [address] PCP - General Internal Medicine 10/20/20 documented as of this encounter
--- OUTSIDE RECORDS SUMMARY | 2025-07-12 19:10 | XMS_ITS | Encounter Summary ---
Author Organization [facility] Prior to 05/29/2024 Address [address] [place] [address] Care Team Providers Care Receiver Setter Name Role Phone Madelaine Ocasio MD Primary Care Provider Unavailable Steven Taylor MD Primary Care Provider [phone] Encounter Details Date Type Department Care Team Description 10/07/2020 Old Medical Records Medical Records [address] [place] [id number] Abstract, Provider Social History Tobacco Use Types [...] on filedocumented in this encounter Care Teams Receiver Setter Relationship Specialty Start Date End Date Madelaine Ocasio MD PCP - General 04/19/0610/19 Steven Taylor MD [address] [place] [address] PCP - General Internal Medicine 10/20/20 documented as of this encounter
--- OUTSIDE RECORDS SUMMARY | 2025-07-12 19:10 | XMS_ITS | Encounter Summary ---
Author Organization [facility] Prior to 05/29/2024 Address [address] [place] [address] Care Team Providers Care Rides Attendant Name Role Phone Madelaine Ocasio MD Primary Care Provider Unavailable Steven Taylor MD Primary Care Provider [phone] Encounter Details Date Type Department Care Team Description 12/11/2016 Production Operations Manager Report Medical Records [address] [place] [address] Howie Esteves Social History Tobacco Use Types [...] on filedocumented in this encounter Care Teams Rides Attendant Relationship Specialty Start Date End Date Madelaine Ocasio MD PCP - General 04/19/0610/19 Steven Taylor MD [address] [place] [address] PCP - General Internal Medicine 10/20/20 documented as of this encounter
--- OUTSIDE RECORDS SUMMARY | 2025-07-12 19:10 | XMS_ITS | Encounter Summary ---
Author Organization [facility] Prior to 05/29/2024 Address [address] [place] [address] Care Team Providers Care Tax Intern Name Role Phone Madelaine Ocasio MD Primary Care Provider Unavailable Steven Taylor MD Primary Care Provider [phone] Reason for Visit * Reason Onset Date Comments Pain, Rib 02/07/2017 Encounter Details Date Type Department Care Team Description 02/07/2017 Telephone Adult Medicine - [address] [address] [place]-Madelaine Marquez MD Pain, Rib Social History Tobacco Use Types Packs/Day Years [...] encounter Miscellaneous Notes * Telephone Encounter - Sabrina Liz R.N. - 02/07/2017 12:43 PM EDT Patient calling and states she saw today and is working her up so she wanted togive this information. Patient states she has bruised/tender feeling on the right below the rib cage at and a little belowwaist line and some of the time same area but in the back. Patient states the symptoms come and go. FYI to . * Telephone Encounter - Jazlyn Sheets - 02/07/2017 12:35 PM EDT Symptoms patient is presenting: rib pain If pain or injury related was it due to an accident at work or from a motor vehicle accident? NO If yes, gather 3rd alliance party insurance information Date of accident/Injury: How long has patient had these symptoms?: 2 weeks PCP: Madelaine Ocasio Payor: NIALL/PPO POS / Plan: PPO $15 [id number] [id number] / Product Type: PPO [id number] documented in this encounter Plan of Treatment Not on file documented as of this encounter Visit Diagnoses Not on filedocumented in this encounter Care Teams Tax Intern Relationship Specialty Start Date End Date Madelaine Ocasio MD PCP - General 04/19/0610/19 Steven Taylor MD [address] [place] [address] PCP - General Internal Medicine 10/20/20 documented as of this encounter
--- OUTSIDE RECORDS SUMMARY | 2025-07-12 19:10 | XMS_ITS | Encounter Summary ---
Author Organization [employer] Prior to 05/29/2024 Address [address] [place] [address] Care Team Providers Care Equipment Specialist Name Role Phone Madelaine Ocasio MD Primary Care Provider Unavailable Steven Taylor MD Primary Care Provider Encounter Details Date Type Department Care Team Description 03/21/2012 Release of Information Medical Records [address] [place] [id number] Abstract, Provider Social History Tobacco Use Types [...] on filedocumented in this encounter Care Teams Equipment Specialist Relationship Specialty Start Date End Date Madelaine Ocasio MD PCP - General 04/19/0610/19 Steven Taylor MD [address] [place] [address] PCP - General Internal Medicine 10/20/20 documented as of this encounter
--- OUTSIDE RECORDS SUMMARY | 2025-07-12 19:10 | XMS_ITS | Encounter Summary ---
Author Organization [facility] Prior to 05/29/2024 Address [address] [place] [address] Care Team Providers Care Hot Mill Worker Name Role Phone Madelaine Ocasio MD Primary Care Provider Unavailable Steven Taylor MD Primary Care Provider Encounter Details Date Type Department Care Team Description 03/26/2017 Caving Guide Report Medical Records [address] [place] [address] Social History Tobacco Use Types Packs/Day Years [...] on filedocumented in this encounter Care Teams Hot Mill Worker Relationship Specialty Start Date End Date Madelaine Ocasio MD PCP - General 04/19/0610/19 Steven Taylor MD [address] [place] [address] PCP - General Internal Medicine 10/20/20 documented as of this encounter
--- OUTSIDE RECORDS SUMMARY | 2025-07-12 19:10 | XMS_ITS | Encounter Summary ---
Author Organization [facility] [facility] Prior to 05/29/2024 Address [address] [place] [address] Care Team Providers Care Surface Water Manager Name Role Phone Madelaine Ocasio MD Primary Care Provider Unavailable Steven Taylor MD Primary Care Provider Encounter Details Date Type Department Care Team Description 04/11/2011 Transfer Records Medical Records [address] [place] [address] Abstract, Provider Social History Tobacco Use Types [...] on filedocumented in this encounter Care Teams Surface Water Manager Relationship Specialty Start Date End Date aMdelaine Ocasio MD PCP - General 04/19/0610/19 Steven Taylor MD [address] [place] [address] PCP - General Internal Medicine 10/20/20 documented as of this encounter
--- OUTSIDE RECORDS SUMMARY | 2025-07-12 19:10 | XMS_ITS | Encounter Summary ---
Author Organization [employer] [facility] Prior to 05/29/2024 Address [address] [place] [address] Care Team Providers Care Knife Glazer Name Role Phone Madelaine Ocasio MD Primary Care Provider Unavailable Steven Taylor MD Primary Care Provider Encounter Details Date Type Department Care Team Description 07/02/2014 Mechanical Assembly Report Medical Records [address] [place] [address] Ivan Yoder Social History Tobacco Use Types Packs/Day Years [...] on filedocumented in this encounter Care Teams Knife Glazer Relationship Specialty Start Date End Date Madelaine Ocasio MD PCP - General 04/19/0610/19 Steven Taylor MD [address] [place] [address] PCP - General Internal Medicine 10/20/20 documented as of this encounter
--- OUTSIDE RECORDS SUMMARY | 2025-07-12 19:10 | XMS_ITS | Encounter Summary ---
Author Organization [facility] Prior to 05/29/2024 Address [address] [place] [address] Care Team Providers Care Timber Buyer Name Role Phone Madelaine Ocasio MD Primary Care Provider Unavailable Steven Taylor MD Primary Care Provider Reason for Visit * Reason Onset Date Comments Provider Call Back 11/25/2018 Encounter Details Date Type Department Care Team Description 11/25/2018 Telephone Adult Medicine - [address] [address] Madelaine Ocasio MD Provider Call Back Social History Tobacco Use [...] encounter Miscellaneous Notes * Telephone Encounter - Alicja Crowder - 11/27/2018 10:36 AM EDT Relayed response to patient * Telephone Encounter - Davin Estrella M.A. - 11/27/2018 10:32 AM EDT Spoke to susie's mother she will have her call our office back. * Telephone Encounter - Madelaine Ocasio MD - 11/27/2018 10:11 AM EDT End december * Telephone Encounter - Francheska Beal L.P.N. - 11/27/2018 9:09 AM EDT When do you want her thyroid level rechecked? * Telephone Encounter - Madelaine Ocasio MD - 11/27/2018 6:40 AM EDT The best thing for her to do is to bring all her supplements and vitamins to her pharmacist and askfor his/her advice about whether or not they will interact with the thyroid medicine and the best timing to take everything. If the pharmacist cannot help answer her question, she should let me know and I'll look into it * Telephone Encounter - Crystal Souza L.P.N. - 11/25/2018 9:11 AM EDT please review and advise * Telephone Encounter - Berta Camarena - 11/25/2018 8:36 AM EDT Caller requesting call back from provider: Is the caller the patient? YES If caller is not the patient, what is the callers name? N/A Callers relationship to patient? N/A If person calling is not the patient themselves, is there a verbal release in FYI or permanent comments for this person: YES Reason for call back: Patient calling to advise PCP that when she takes her thyroid medication she also takes vitamins and supplements with it, she read that this could cancel out the effects of the thyroid medication, is due for f/u blood work to check thyroid levels, was wondering when she shouldcome and do the f/u blood work and how she should take all of her medications together, please advise Caller offered to speak with the nurse for assistance: YES Response: Patient offered to speak with nurse for assistance and patient agreed. Message forwarded to nurse. documented in this encounter Plan of Treatment Not on file documented as of this encounter Visit Diagnoses Not on filedocumented in this encounter Care Teams Timber Buyer Relationship Specialty Start Date End Date [place]-Madelaine Marquez MD PCP - General 04/19/0610/19 Steven Taylor MD [address] [place] [address] PCP - General Internal Medicine 10/20/20 documented as of this encounter
--- OUTSIDE RECORDS SUMMARY | 2025-07-12 19:10 | XMS_ITS | Encounter Summary ---
Author Organization [facility] Prior to 05/29/2024 Address [address] [place] [address] Care Team Providers Care Methods Study Analyst Name Role Phone Madelaine Ocasio MD Primary Care Provider Unavailable Steven Taylor MD Primary Care Provider Reason for Visit * Reason Onset Date Comments er follow up 08/10/2016 Encounter Details Date Type Department Care Team Description 08/10/2016 Telephone Adult Medicine - [address] [address] Madelaine Ocasio MD er follow up Social History Tobacco Use Types Packs/Day Years [...] Miscellaneous Notes * Telephone Encounter - Rachel Moeller - 08/10/2016 3:15 PM EST appt booked 08/17 with Matheus Please request notes from Kirstie * Telephone Encounter - Sabrina Liz R.N. - 08/10/2016 10:11 AM EST Please schedule an ER follow up appointment. * Telephone Encounter - Chapis Cummings - 08/10/2016 9:04 AM EST Need ER follow-up visit, see attached letter. documented in this encounter Plan of Treatment Not on file documented as of this encounter Visit Diagnoses Not on filedocumented in this encounter Care Teams Methods Study Analyst Relationship Specialty Start Date End Date [place]-Madelaine Marquez MD PCP - General 04/19/0610/19 Steven Taylor MD [address] [place] [address] PCP - General Internal Medicine 10/20/20 documented as of this encounter
--- OUTSIDE RECORDS SUMMARY | 2025-07-12 19:10 | XMS_ITS | Encounter Summary ---
Author Organization [facility] Prior to 05/29/2024 Address [address] [place] [address] Care Team Providers Care Cyanide Case Hardener Name Role Phone Madelaine Ocasio MD Primary Care Provider Unavailable Steven Taylor MD Primary Care Provider Encounter Details Date Type Department Care Team Description 09/11/2019 Manager Creative Report Medical Records [address] [place] [address] Ivan Yoder Social History Tobacco Use Types [...] on filedocumented in this encounter Care Teams Cyanide Case Hardener Relationship Specialty Start Date End Date Madelaine Ocasio MD PCP - General 04/19/0610/19 Steven Taylor MD [address] [place] [address] PCP - General Internal Medicine 10/20/20 documented as of this encounter
--- OUTSIDE RECORDS SUMMARY | 2025-07-12 19:10 | XMS_ITS | Encounter Summary ---
Author Organization [facility] Prior to 05/29/2024 Address [address] [place] [address] Care Team Providers Care Patient Service Coordinator Name Role Phone Madelaine Ocasio MD Primary Care Provider Unavailable Steven Taylor MD Primary Care Provider Encounter Details Date Type Department Care Team Description 03/25/2015 Supervisor Inspection Room Report Medical Records [address] [place] [address] Howie Esteves Social History Tobacco Use Types [...] on filedocumented in this encounter Care Teams Patient Service Coordinator Relationship Specialty Start Date End Date Madelaine Ocasio MD PCP - General 04/19/0610/19 Steven Taylor MD [address] [place] [address] PCP - General Internal Medicine 10/20/20 documented as of this encounter
--- OUTSIDE RECORDS SUMMARY | 2025-07-12 19:10 | XMS_ITS | Encounter Summary ---
Author Organization [facility] Prior to 05/29/2024 Address [address] [place] [address] Care Team Providers Care Veterinary Surgery Technician Name Role Phone Steven Taylor MD Primary Care Provider Reason for Visit * Reason Onset Date Comments injection 03/15/2023 PRP Encounter Details Date Type Department Care Team Description 03/15/2023 Telephone [facility] [address] [phone] Keily Meredith MD [address] [address] injection (PRP) Social History Tobacco Use Types Packs/Day Years Used Date Smoking Tobacco: Never Smokeless Tobacco: Never Alcohol Use Standard Drinks/Week Comments No 0 (1 standard drink = 0.6 oz pur e alcohol) Sex Assigned at Date Recorded Not on file Job Start Date Occupation Industry Not on file Not on file Not on file COVID-19 Exposure Response Date Recorded In the last 10 days, have yo u been in contact with someone who was confirmed or suspected to have Coronavirus/COVID-19? No / Unsure 03/14/2023 3:10 PM EDT documented as of this encounter Miscellaneous Notes * Telephone Encounter - Keily Meredith MD - 03/15/2023 4:20 PM EDT Noted, thanks for calling. * Telephone Encounter - Claudia Santacruz - 03/15/2023 2:23 PM EDT Called provider services to marco if pts insurance covered PRP inj. They stated her plan does not cover them. I called the pt and informed her as well, she is not able to afford getting a PRP at this time. documented in this encounter Plan of Treatment Not on file documented as of this encounter Visit Diagnoses Not on filedocumented in this encounter Care Teams Veterinary Surgery Technician Relationship Specialty Start Date End Date Steven Taylor MD [address] [place] [address] PCP - General Internal Medicine 10/20/20 documented as of this encounter
--- OUTSIDE RECORDS SUMMARY | 2025-07-12 19:10 | XMS_ITS | Encounter Summary ---
Author Organization [facility] Prior to 05/29/2024 Address [address] [place] [address] Care Team Providers Care Supercharger Repair Supervisor Name Role Phone Steven Taylor MD Primary Care Provider [phone] Reason for Visit * Reason Onset Date Comments Faxed Order 09/12/2023 Encounter Details Date Type Department Care Team Description 09/12/2023 Refill Adult Medicine - [facility] [address] [place] [address] Steven Taylor MD [address] [place], [place] [phone] Faxed Order Social History Tobacco Use Types Packs/Day Years [...] Miscellaneous Notes * Telephone Encounter - Keily Johnson - 09/12/2023 12:21 PM EST REFILL LAST TIME SEEN: 03/25/2023 PCP: same as above NEXT TIME SEEN: 2024 documented in this encounter Plan of Treatment Not on file documented as of this encounter Visit Diagnoses Not on filedocumented in this encounter Care Teams Supercharger Repair Supervisor Relationship Specialty Start Date End Date Steven Taylor MD [address] [place] [address] PCP - General Internal Medicine 10/20/20 documented as of this encounter
--- OUTSIDE RECORDS SUMMARY | 2025-07-12 19:10 | XMS_ITS | Encounter Summary ---
Author Organization [facility] Prior to 05/29/2024 Address [address] [place] [address] Care Team Providers Care Garbage Truck Helper Name Role Phone Madelaine Ocasio MD Primary Care Provider Unavailable Steven Taylor MD Primary Care Provider [phone] Encounter Details Date Type Department Care Team Description 10/22/2012 Release of Information Medical Records [address] [place] [address] Abstract, Provider Social History Tobacco Use Types [...] on filedocumented in this encounter Care Teams Garbage Truck Helper Relationship Specialty Start Date End Date Madelaine Ocasio MD PCP - General 04/19/0610/19 Steven Taylor MD [address] [place] [address] PCP - General Internal Medicine 10/20/20 documented as of this encounter
--- OUTSIDE RECORDS SUMMARY | 2025-07-12 19:10 | XMS_ITS | Encounter Summary ---
Author Organization [facility] Prior to 05/29/2024 Address [address] [place] [address] Care Team Providers Care Supervisor Nurse Name Role Phone Madelaine Ocasio MD Primary Care Provider Unavailable Steven Taylor MD Primary Care Provider Encounter Details Date Type Department Care Team Description 11/30/2013 Film Drying Machine Operator Report Medical Records [address] [place] [address] Shine Faulkner Social History Tobacco Use Types [...] on filedocumented in this encounter Care Teams Supervisor Nurse Relationship Specialty Start Date End Date Madelaine Ocasio MD PCP - General 04/19/0610/19 Steven Taylor MD [address] [place] [address] PCP - General Internal Medicine 10/20/20 documented as of this encounter
--- OUTSIDE RECORDS SUMMARY | 2025-07-12 19:10 | XMS_ITS | Encounter Summary ---
Author Organization [facility] Prior to 05/29/2024 Address [address] [place] [address] Care Team Providers Care Merchandise Flow Team Leader Name Role Phone Madelaine Ocasio MD Primary Care Provider Unavailable Steven Taylor MD Primary Care Provider Encounter Details Date Type Department Care Team Description 06/04/2014 Optometrist/Practice Owner Report Medical Records [address] [place] [address] Ivan Yoder Social History Tobacco Use Types [...] on filedocumented in this encounter Care Teams Merchandise Flow Team Leader Relationship Specialty Start Date End Date Madelaine Ocasio MD PCP - General 04/19/0610/19 Steven aTylor MD [address] [place] [address] PCP - General Internal Medicine 10/20/20 documented as of this encounter
--- OUTSIDE RECORDS SUMMARY | 2025-07-12 19:10 | XMS_ITS | Encounter Summary ---
Author Organization [facility] Prior to 05/29/2024 Address [address] [place] [address] Care Team Providers Care Long Line Teamster Name Role Phone Madelaine Ocasio MD Primary Care Provider Unavailable Steven Taylor MD Primary Care Provider Encounter Details Date Type Department Care Team Description 08/04/2018 Systems Applications Programming Lead Report Medical Records [address] [place] [address] James Ryder Social History Tobacco Use Types Packs/Day Years [...] on filedocumented in this encounter Care Teams Long Line Teamster Relationship Specialty Start Date End Date Madelaine Ocasio MD PCP - General 04/19/0610/19 Steven Taylor MD [address] [place] [address] PCP - General Internal Medicine 10/20/20 documented as of this encounter
--- OUTSIDE RECORDS SUMMARY | 2025-07-12 19:10 | XMS_ITS | Encounter Summary ---
Author Organization [facility] Prior to 05/29/2024 Address [address] [place] [address] Care Team Providers Care Gas Systems Worker Name Role Phone Madelaine Ocasio MD Primary Care Provider Unavailable Steven Taylor MD Primary Care Provider Encounter Details Date Type Department Care Team Description 05/31/2014 Hi Lift Operator Report Medical Records [address] [place] [address] Howie Esteves Social History Tobacco Use Types [...] on filedocumented in this encounter Care Teams Gas Systems Worker Relationship Specialty Start Date End Date Madelaine Ocasio MD PCP - General 04/19/0610/19 Steven Taylor MD [address] [place] [address] PCP - General Internal Medicine 10/20/20 documented as of this encounter
--- OUTSIDE RECORDS SUMMARY | 2025-07-12 19:10 | XMS_ITS | Encounter Summary ---
Author Organization [facility] Prior to 05/29/2024 Address [address] [place] [address] Care Team Providers Care Wafer Mounter Name Role Phone Madelaine Ocasio MD Primary Care Provider Unavailable Steven Taylor MD Primary Care Provider Encounter Details Date Type Department Care Team Description 09/11/2016 Corporate Tax Manager Report Medical Records [address] [place] [address] Howie Esteves Social History Tobacco Use Types [...] on filedocumented in this encounter Care Teams Wafer Mounter Relationship Specialty Start Date End Date Madelaine Ocasio MD PCP - General 04/19/0610/19 Steven Taylor MD [address] [place] [address] PCP - General Internal Medicine 10/20/20 documented as of this encounter
--- OUTSIDE RECORDS SUMMARY | 2025-07-12 19:10 | XMS_ITS | Patient Health Record ---
Author Organization [facility] Address [address] [place] [address] Care Team Providers Care Breast Splitter Name Role Phone Steven Taylor MD Primary Care Provider Unavail able Roseline Carreno Unavailable [phone] Allergies Allergen (clinical drug ingredient) Drug/Non Drug [...] Problem Acquired hammer toe of right foot (0601147481580684) Other hammer toe(s) (acquired), right foot (M20.41) Active confirmed Problem Acquired hammer toe of left foot (5510364835452178) Other hammer toe(s) (acquired), left foot (M20.42) Active confirmed Problem Plantar fascial fibromatosis (48861664) Plantar fascial fibromatosis (M72.2) Active confirmed Problem 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) Active confirmed Problem Pronation deformity of right foot (M21.6X1) Active confirmed Problem Raynaud's disease (829125331) Raynaud's phenomenon without gangrene (I73.00) Active confirmed Problem Localized, primary osteoarthritis of the ankle and/or foot (401016540) Arthritis of joint of lesser toe, left (M19.072) Active confirmed Problem Localized, primary osteoarthritis of the ankle and/or foot (810297928) Arthritis of joint of lesser toe, right (M19.071) Active confirmed Problem Plantar fascial fibromatosis (87723202) Plantar fasciitis, bilateral (M72.2) Active confirmed Vital Signs Blood pressure diastolic 71 mm Hg 09/08/2024 Height 5ft 7in in 09/08/2024 Blood pressure systolic 110 mm Hg 09/08/2024 Weight 178 lbs 09/08/2024 BMI 27.88 kg/m2 09/08/2024 Encounters Encounter Location Date Provider Diagnosis [address] [address] 07/14/2024 Roseline Black Pain in right foot M79.671 ; Plantar fasciitis, bilateral M72.2 ; Other myositis of right foot M60.871 ; Bursitis of right foot M77.51 ; Pain in left foot M79.672 ; Other myositis of left foot M60.872 and Bursitis of left foot M77.[address] [address] 09/08/2024 Roseline Black Pain in right foot M79.671 ; Plantar fasciitis, bilateral M72.2 ; Other myositis of right foot M60.871 ; Bursitis of right foot M77.51 ; Pain in left foot M79.672 ; Other myositis of left foot M60.872 and Bursitis of left foot M77.52 [facility] [address] [place] [address] 07/14/2024 Roseline Black [address] [address] 10/16/2024 Roseline Black Assessments Encounter Date Diagnosis [...] X ray : Foot, right 3V 12/04/2012 [id number] NAIL, 6 OR MORE 03/17/2021 Insurance Providers Payer Name Payer Address Payer Phone Subscriber Number Group Number Insured Name Patient Relationship to Insured Coverage Start Date Coverage End Date Curtis Gandara [address] [place] [address] [id number] Stephanie Medina Self - patient is the insured Medical (General) History Medical History History ICD Code sciatica chicken pox back, hip, knee pain asthma Surgical History Surgery Date(Month/Year) right elbow surgery 2011 carpal tunnel surgery-right 07/2018
--- OUTSIDE RECORDS SUMMARY | 2025-07-12 19:10 | XMS_ITS | Encounter Summary ---
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
--- OUTSIDE RECORDS SUMMARY | 2025-07-12 19:10 | XMS_ITS | Encounter Summary ---
Author Organization [facility] [employer] [facility] Prior to 05/29/2024 Address [address] [place] [address] Care Team Providers Care Compressor Mechanic Name Role Phone Steven Taylor MD Primary Care Provider [phone] Encounter Details Date Type Department Care Team Description 05/16/2021 Lens Marker Report Medical Records [address] [place] [id number] [place] [address] [facility] [address] [place] [address] Social History Tobacco Use Types Packs/Day Years [...] on filedocumented in this encounter Care Teams Compressor Mechanic Relationship Specialty Start Date End Date Steven Taylor MD [address] [place] [address] PCP - General Internal Medicine 10/20/20 documented as of this encounter
--- OUTSIDE RECORDS SUMMARY | 2025-07-12 19:10 | XMS_ITS | Clinical Summary ---
Author Organization [facility] [address] [facility] Address [address] [place] [address] Phone Care Team Providers Care Aerospace Medicine Physician Name Role Phone Jeannine Vera MD Primary [...] (07/01/2024): 03/21 HgbA1C 6.1% Moderate major depression 08/04/2019 Overweight (BMI 25.0-29.9) 08/04/2019 Eczema of both hands 10/27/2018 Osteoarthritis 05/20/2018 Carpal tunnel syndrome of right wrist 03/24/2018 Overview (07/01/2024): NCT at [facility] Snoring 06/12/2017 Overview (07/01/2024): 05/2017 Home Sleep Study did not reveal sleep apnea. Hot flashes, menopausal 09/19/2015 Asthma 04/26/2014 Vitamin D insufficiency 04/13/2013 Cervical radiculopathy 04/09/2011 Hypertension 12/04/2010 Pure hypercholesterolemia 09/19/2007 Allergic rhinitis 12/31/2005 Encounters Date Type Department Care Team Description 05/10/2025 9:53 AM EDT Anesthesia Event [facility] Endoscopy [address] [place] [address] Bernard Headley MD 05/10/2025 9:17 AM EDT - 05/10/2025 11:59 PM EDT Hospital Encounter [facility] Endoscopy [address] [place] [phone] Ramos Presotn MD Georgette, Nathaniel, CRNA Dasilva, John E, MD Colon cancer screening Discharge Disposition: Home or Self Care from Last 3 Months Immunizations Immunization Administration Dates Next Due H1N1 Inj Preservative Free 06/16/2009 Hepatitis B (Qrjbeqk-V-Wpzgd , Recombivax HB-Adult) 19yo and older 09/24/2005,08/20/2005 [...] syndrome of right wrist; COMMENT: NCT at [facility] Osteoarthritis 05/20/2018 DX:Osteoarthriti s Family History [...] AM EDT Sexual Orientation Not on file Last Filed Vital Signs Vital Sign Reading [...] this topic Medical Devices Implanted Type Area Unpaid Intern Device Identifier Shelf Expiration Date Model / [...] Maintenance Results * COLONOSCOPY Anesthesia - MAC; [facility] ENDOSCOPY (05/10/2025 10:12 AM EDT) Anatomical Region [...] office PRN. Narrative 05/10/2025 10:13 AM EDT [facility] GI Patient Name: Chon Medina [...] malignant neoplasm of colon CPT copyright 2020 [employer]. All rights reserved. The codes documented in this report are preliminary and upon small animal caretaker review may be revised to meet current compliance requirements. Ramos Preston MD 05/10/2025 10:13:40 AM This report has been signed electronically.Ramos Preston MD Number of Addenda: 0 Note Initiated On: 05/10/2025 9:40 AM Scope In: Scope Out: Endoscopy Department at [facility] - [address] [place] [phone] Procedure Note Ramos Preston MD - 05/10/2025 [facility] GI Patient Name: Chon Medina [...] for malignantneoplasm of colon CPT copyright 2020 [employer]. All rights reserved. The codes documented in this report are preliminary and upon small animal caretaker reviewmay be revised to meet current compliance requirements. Ramos Preston MD 05/10/2025 10:13:40 AM This report has been signed electronically.Ramos Preston MD Number of Addenda: 0 Note Initiated On: 05/10/2025 9:40 AM Scope In: Scope Out: Endoscopy Department at [facility] - [address] [place] [phone] IMPRESSION: - Diverticulosis in the sigmoid colon. [...] 09/11/2024 10:[address] [facility] Triglycerides 130 0 - 150 mg/dL LAB CHEMISTRY METHOD 09/11/2024 10:[address] [facility] HDL 62 >=40 mg/dL LAB CHEMISTRY METHOD 09/11/2024 10:[address] [facility] LDL Calculated 64 0 - 100 mg/dL LAB CHEMISTRY METHOD 09/11/2024 10:[address] [facility] VLDL Cholesterol Toney 26 mg/dL LAB CHEMISTRY METHOD 09/11/2024 10:[address] [facility] Non HDL Chol. (LDL+VLDL) 90 <145 mg/dL LAB CHEMISTRY METHOD 09/11/2024 10:[address] [facility] Chol/HDL Ratio 2.5 0.0 - 4.4 LAB CHEMISTRY METHOD 09/11/2024 10:[address] [facility] Blood Venous blood specimen / Unknown Venipuncture / Unknown 09/11/2024 8:11 AM EST 09/11/2024 8:11 AM EST [facility] Howie Taylor MD LAB BLOOD ORDERABLES Final Res ult [facility] [address] [place] [address], * (ABNORMAL) Comprehensive metabolic panel (09/11/2024 8:11 [...] MD LAB BLOOD ORDERABLES Final Res ult [facility] [address] [place] [address], * SCREENING MAMMOGRAPHY BI 2-VIEW BREAST INC [...] Breast cancer risk category Low (<15%) Location: [facility], [address] [place] [address], [address], [phone] Procedure Note Darlene Alberts MD - 05/13/2024 [...] Breast cancer risk category Low (<15%) Location: [facility], [address] [place] [address], [address], [phone] Patti Hernández DO IMG XR PROCEDURES Final Resul t * Cervical Cancer Screening: HPV (11/30/2022) Cervical Cancer Screening: HPV negative, abstracted Historical Provider [facility] Final Result * Hepatitis C Screening (04/13/2013) Hepatitis C Screening abstracted us Historical Provider [facility] Final Result from Last 3 Months or Most Recently Relevant to Health Maintenance Insurance [place] ([place]) AUTO GENERIC [place] ([place]) Care Teams Aerospace Medicine Physician Relationship Specialty Start Date End Date Jeannine Vera MD [address] [place] [facility] [address] PCP - General Internal Medicine 02/08/25
--- OUTSIDE RECORDS SUMMARY | 2025-07-12 19:10 | XMS_ITS | Encounter Summary ---
Author Organization [facility] Prior to 05/29/2024 Address [address] [place] [address] Care Team Providers Care Senior Sql Database Developer Name Role Phone Madelaine Ocasio MD Primary Care Provider Unavailable Steven Taylor MD Primary Care Provider [phone] Reason for Visit * Reason Comments E-prescribe Rx Request Encounter Details Date Type Department Care Team Description 09/09/2020 Refill Adult Medicine - [address] [address] Madelaine Ocasio MD E-prescribe Rx Request Social History Tobacco Use Types Packs/Day Years Used Date Smoking Tobacco: Never Smokeless Tobacco: Never Alcohol Use Standard Drinks/Week Comments No 0 (1 standard drink = 0.6 oz pur e alcohol) Sex Assigned at Date Recorded Not on file Job Start Date Occupation Industry Not on file Not on file Not on file COVID-19 Exposure Response Date Recorded In the last month, have you been in contact with someone who was confirmed or suspected to have Coronavirus / COVID-19? No / Unsure 08/23/2020 8:42 AM EST documented as of this encounter Miscellaneous Notes * Telephone Encounter - Lenora Bird - 09/09/2020 9:27 AM EST Patient would like script to be: E-PRESCRIBED/FAXED TO PHARMACY WHEN WAS THE PATIENT'S LAST APPOINTMENT IN ADULT MEDICINE? 08/23/20 WHEN WAS THE LAST TIME THE PATIENT SAW THEIR PCP? Same as above Does patient have an upcoming appointment? Yes 02/13/2021 (THE MEDICATION REQUESTED IS ON THE MED LIST ABOVE) All of the medications requested were on the CURRENT MEDS list Did you check the Pharmacy information above?: YES Patient wants: 30 -day supply Is this a mail order prescription request ? NO If the refill is from a FAXED refill request what is the RX # listed on the fax? N/A Patients current insurance carrier is: Payor: [employer] POS / Plan: PPO $15 [employer] [id number] / ProductType: PPO [id number] documented in this encounter Plan of Treatment Not on file documented as of this encounter Visit Diagnoses Not on filedocumented in this encounter Care Teams Senior Sql Database Developer Relationship Specialty Start Date End Date [place]-Madelaine Marquez MD PCP - General 04/19/0610/19 Steven Taylor MD [address] [place] [address] PCP - General Internal Medicine 10/20/20 documented as of this encounter
--- OUTSIDE RECORDS SUMMARY | 2025-07-12 19:10 | XMS_ITS | Encounter Summary ---
Author Organization [facility] [employer] [facility] Prior to 05/29/2024 Address [address] [place] [address] Care Team Providers Care Asphalt Blender Name Role Phone Madelaine Ocasio MD Primary Care Provider Unavailable Steven Taylor MD Primary Care Provider Encounter Details Date Type Department Care Team Description 12/08/2012 Overhauler Helper Report Medical Records [address] [place] [address] Shine Faulkner Social History Tobacco Use Types [...] on filedocumented in this encounter Care Teams Asphalt Blender Relationship Specialty Start Date End Date Madelaine Ocasio MD PCP - General 04/19/0610/19 Steven Taylor MD [address] [place] [address] PCP - General Internal Medicine 10/20/20 documented as of this encounter
--- OUTSIDE RECORDS SUMMARY | 2025-07-12 19:10 | XMS_ITS | Encounter Summary ---
Author Organization [facility] Address [address] [place] [address] Phone Care Team Providers Care Mold Parter Name Role Phone Isabel Taylor MD Primary Care Provider [phone] Encounter Details Date Type Department Care Team (Late st Contact Info) Description 11/17/2021 Transcribe Orders Virtual Department [address] [place] [address] Shine Faulkner, DO [address] [facility], [address] [place] [address] [email or web address], unspecified type Social History Tobacco Use [...] type documented in this encounter Care Teams Mold Parter Relationship Specialty Start Date End Date Isabel Taylor MD [address] [place] [address] PCP - General Internal Medicine 11/20/21 documented as of this encounter Additional Source Comments The information contained in this document represents components of the legal health record. It is not the complete legal health record.[facility]
--- OUTSIDE RECORDS SUMMARY | 2025-07-12 19:10 | XMS_ITS | Encounter Summary ---
Author Organization [facility] Prior to 05/29/2024 Address [address] [place] [address] Care Team Providers Care Resource Center Teacher Name Role Phone Normal-Madelaine Marquez MD Primary Care Provider Unavailable Steven Taylor MD Primary Care Provider [phone] Reason for Visit * Reason Onset Date Comments APPOINTMENT 05/27/2017 Encounter Details Date Type Department Care Team Description 05/27/2017 Telephone Hypertension - [place] [address] [place] [address] Kimberley Krishnamurthy, Pharm.D APPOINTMENT Social History Tobacco Use Types Packs/Day Years [...] encounter Miscellaneous Notes * Telephone Encounter - Adri Camarena - 05/27/2017 11:31 AM EDT Patient canceled her appointment for BP monitor on 06/10/2017. Would like to reschedule on Saturday06/07/2017 and return on Saturday06/10/2017. If no appointment for this day, she will need to reschedule for next year. Patient has no more days off from work. documented in this encounter Plan of Treatment Not on file documented as of this encounter Visit Diagnoses Not on filedocumented in this encounter Care Teams Resource Center Teacher Relationship Specialty Start Date End Date Normal-Madelaine Marquez MD PCP - General 04/19/0610/19 Steven Taylor MD [address] [place] [id number] PCP - General Internal Medicine 10/20/20 documented as of this encounter
--- OUTSIDE RECORDS SUMMARY | 2025-07-12 19:10 | XMS_ITS | Encounter Summary ---
Author Organization [facility] Prior to 05/29/2024 Address [address] [place] [address] Care Team Providers Care Box Blank Machine Feeder Name Role Phone Steven Taylor MD Primary Care Provider [phone] Reason for Visit * Reason Onset Date Comments Vaginal Bleeding 04/03/2022 Encounter Details Date Type Department Care Team Description 04/03/2022 Pt. Non Urgent Medic al Question OBGYN - [address] [address] Patti Mosqueda DO Social History Tobacco Use Types Packs/Day Years [...] suspected to have Coronavirus/COVID-19? No / Unsure 03/29/2022 8:34 AM EDT documented as of this encounter Miscellaneous Notes * Telephone Encounter - Carlee De La Paz R.N. - 04/04/2022 8:42 AM EDTFrom: Stephanie Medina To: Saul Mosqueda Sent: 04/03/2022 6:29 PM EDT Subject: Started having minor spotting again Dr. MOSQUEDA, I am sending this message because I noticed that I had some minor spotting that occurred today, 04/03/22. Why is this happening and should I be concerned? What can I do to prevent this from happening? I am very nervous about this issue since my sister is dealing with her uterine cancer treatments. Unfortunately she still will not provide me with the name of tge type of uterine cancer she has. All Iknow is that one of the tumors she had was hereditary. This spotting, though minor, is really starting to worry me. Stephaniehilario Medina documented in this encounter Plan of Treatment Not on file documented as of this encounter Visit Diagnoses Not on filedocumented in this encounter Care Teams Box Blank Machine Feeder Relationship Specialty Start Date End Date Steven Taylor MD [address] [place] [id number] PCP - General Internal Medicine 10/20/20 documented as of this encounter
--- OUTSIDE RECORDS SUMMARY | 2025-07-12 19:10 | XMS_ITS | Encounter Summary ---
Author Organization [facility] Prior to 05/29/2024 Address [address] [place] [address] Care Team Providers Care Basket Weaver Name Role Phone Madelaine Ocasio MD Primary Care Provider Unavailable Steven Taylor MD Primary Care Provider Encounter Details Date Type Department Care Team Description 05/18/2014 [id number] Armor Crewman Report Medical Records [address] [place] [id number] Ivan Yoder [address] [place] [address] Social History Tobacco Use Types Packs/Day Years [...] on filedocumented in this encounter Care Teams Basket Weaver Relationship Specialty Start Date End Date Madelaine Ocasio MD PCP - General 04/19/0610/19 Steven Taylor MD [address] [place] [id number] PCP - General Internal Medicine 10/20/20 documented as of this encounter
--- OUTSIDE RECORDS SUMMARY | 2025-07-12 19:10 | XMS_ITS | Encounter Summary ---
Author Organization [facility] Prior to 05/29/2024 Address [address] [place] [address] Care Team Providers Care Training And Development Specialist Name Role Phone Madelaine Ocasio MD Primary Care Provider Unavailable Steven Taylor MD Primary Care Provider Encounter Details Date Type Department Care Team Description 01/13/2018 Patient Care Nursing Assistant Report Medical Records [address] [place] [address] Howie Esteves Social History Tobacco Use Types [...] on filedocumented in this encounter Care Teams Training And Development Specialist Relationship Specialty Start Date End Date Madelaine Ocasio MD PCP - General 04/19/0610/19 Steven Taylor MD [address] [place] [address] PCP - General Internal Medicine 10/20/20 documented as of this encounter
--- OUTSIDE RECORDS SUMMARY | 2025-07-12 19:10 | XMS_ITS | Encounter Summary ---
Author Organization [facility] Prior to 05/29/2024 Address [address] [place] [address] Care Team Providers Care Saturator Tender Name Role Phone Bri-Madelaine Marquez MD Primary Care Provider Unavailable Steven Taylor MD Primary Care Provider Reason for Referral * Radiology Services (Routine) - Closed Specialty Diagnoses / Procedures Referred By Angie vences Referred To Contact Radiology Diagnoses Chronic hip pain, right Procedures MRI OF HIPS/KNEES/ANKLE JOINTS NO CONTRAST Lawson Duron PA-C [address] [place] [address] Mri/[address] [address] Referral ID Status Reason Start Date Expiration Date Visits Re quested Visits Authorized [id number] Closed 12/12/2016 02/08/2017 1 1 Reason for Visit * Reason Onset Date Comments radiology 12/07/2016 mri testing. Encounter Details Date Type Department Care Team Description 12/07/2016 Telephone Physiatry - [address] [phone] Lawson Duron PA-C radiology (mri testing.) Social History Tobacco Use Types Packs/Day Years [...] encounter Miscellaneous Notes * Telephone Encounter - Lawson Duron PA-C - 12/11/2016 10:23 AM EDT MRI of the right hip was ordered. Cervical spine was an error. Thank you * Telephone Encounter - Pretty Lam - 12/07/2016 9:35 AM EDT Please review Stephanie Medina mri order? Do you want an mri of the cervical spine or right hip? Pretty, Mri Department. documented in this encounter Plan of Treatment Not on file documented as of this encounter Results * MRI OF HIPS/KNEES/ANKLE JOINTS NO CONTRAST (12/17/2016 11:25 AM EDT) 12/17/2016 4:13 PM EDT Impressions MAREN GAVIN OTHER EXTERNAL - 12/17/2016 4:22 PM EDT IMPRESSION: Findings of moderate bilateral greater trochanteric pain syndrome, right greater than left. The hip joint itself is radiographically intact. Narrative MAREN GAVIN OTHER EXTERNAL - 12/17/2016 4:22 PM EDT History: Chronic right hip pain. Right hip MRI: A departmental standard hip MRI protocol was used. FINDINGS: The hip joint is radiographically intact. There are no appreciable degenerative changes. The femoral heads are normal in configuration and signal characteristics. There are no findings to suggest avascular necrosis or other active bony pathology. There is a moderate amount of soft tissue edema adjacent to the greater trochanters right greater than left. Edema surrounds the tendon insertions. Findings are consistent with trochanteric bursitis, or greater trochanteric pain syndrome. There is some mild soft tissue edema surrounding the hamstring insertions right greater than left also consistent with inflammation. Other visualized pelvic structures are unremarkable. Procedure Note Jeff Kumar MD - 12/17/2016 History: Chronic right hip pain. Right hip MRI: A departmental standard hip MRI protocol was used. FINDINGS: The hip joint is radiographically intact. There are noappreciable degenerative changes. The femoral heads are normal in configuration and signalcharacteristics. There are no findings to suggest avascular necrosis or other active bony pathology. There is a moderate amount of soft tissue edema adjacent to the greatertrochanters right greater than left. Edema surrounds the tendon insertions. Findings areconsistent with trochanteric bursitis, or greater trochanteric pain syndrome. There issome mild soft tissue edema surrounding the hamstring insertions right greater than left alsoconsistent with inflammation. Other visualized pelvic structures are unremarkable. IMPRESSION IMPRESSION: Findings of moderate bilateral greater trochanteric painsyndrome, right greater than left. The hip joint itself is radiographically intact. Lawson Duron PA-C MRI MAREN GAVIN OTHER EXTERNAL documented in this encounter Visit Diagnoses Diagnosis Chronic hip pain, right- Primary Chronic hip pain, right documented in this encounter Care Teams Saturator Tender Relationship Specialty Start Date End Date [place]-Madelaine Marquez MD PCP - General 04/19/0610/19 Steven Taylor MD [address] [place] [id number] PCP - General Internal Medicine 10/20/20 documented as of this encounter
--- OUTSIDE RECORDS SUMMARY | 2025-07-12 19:10 | XMS_ITS | Encounter Summary ---
Author Organization [facility] Prior to 05/29/2024 Address [address] [place] [address] Care Team Providers Care Geothermal Operations Engineer Name Role Phone Madelaine Ocasio MD Primary Care Provider Unavailable Steven Taylor MD Primary Care Provider Encounter Details Date Type Department Care Team Description 06/16/2019 Commutator Presser Report Medical Records [address] [place] [address] Howie Esteves Social History Tobacco Use Types [...] on filedocumented in this encounter Care Teams Geothermal Operations Engineer Relationship Specialty Start Date End Date Madelaine Ocasio MD PCP - General 04/19/0610/19 Steven Taylor MD [address] [place] [address] PCP - General Internal Medicine 10/20/20 documented as of this encounter
--- OUTSIDE RECORDS SUMMARY | 2025-07-12 19:10 | XMS_ITS | Encounter Summary ---
Author Organization [employer] [facility] Prior to 05/29/2024 Address [address] [place] [address] Care Team Providers Care Director Of Land Name Role Phone Steven Taylor MD Primary Care Provider [phone] Encounter Details Date Type Department Care Team Description 07/11/2022 Pt. Non Urgent Medical Question Adult Medicine - [place] [address] [place] [address] Steven Taylor MD [address] [place] [address] Social History Tobacco Use Types Packs/Day Years [...] filedocumented in this encounter Care Teams Director Of Land Relationship Specialty Start Date End Date Steven Taylor MD [address] [place] [address] PCP - General Internal Medicine 10/20/20 documented as of this encounter
--- OUTSIDE RECORDS SUMMARY | 2025-07-12 19:10 | XMS_ITS | Encounter Summary ---
Author Organization [employer] [facility] Prior to 05/29/2024 Address [address] [place] [address] Care Team Providers Care Moss Picker Name Role Phone Steven Taylor MD Primary Care Provider Encounter Details Date Type Department Care Team Description 10/01/2022 Pt. Referral Request [facility] Kaya [address] [place] [address] Md Kaya Social History Tobacco Use Types Packs/Day Years [...] suspected to have Coronavirus/COVID-19? No / Unsure 09/24/2022 8:25 AM EST documented as of this encounter Plan of Treatment Not on file documented as of this encounter Visit Diagnoses Not on filedocumented in this encounter Care Teams Moss Picker Relationship Specialty Start Date End Date Steven Taylor MD [address] [place], [place] [phone] PCP - General Internal Medicine 10/20/20 documented as of this encounter
--- OUTSIDE RECORDS SUMMARY | 2025-07-12 19:10 | XMS_ITS | Encounter Summary ---
Author Organization [facility] [facility] Prior to 05/29/2024 Address [address] [place] [address] Care Team Providers Care Chronometer Tester Name Role Phone Steven Taylor MD Primary Care Provider Encounter Details Date Type Department Care Team Description 10/01/2022 Pt. Non Urgent Medical Question Adult Medicine - [place] [address] [place] [address] Steven Taylor MD [address] [place], [place] [phone] Social History Tobacco Use Types Packs/Day Years [...] encounter Miscellaneous Notes * Telephone Encounter - Crystal Souza L.P.N. - 10/01/2022 1:59 PM ESTFrom: Stephanie Medina To: Isabel Taylor Sent: 10/01/2022 1:54 PM EST Subject: Referral request for physical therapy I am following up on my recent referral request for physical therapy. I have not heard back from your office. It has been about a week. Has a referral been sent to me. I do not want to go to [address] for PT. Stephanie Medina documented in this encounter Plan of Treatment Not on file documented as of this encounter Visit Diagnoses Not on filedocumented in this encounter Care Teams Chronometer Tester Relationship Specialty Start Date End Date Steven Taylor MD [address] [place] [id number] PCP - General Internal Medicine 10/20/20 documented as of this encounter
--- OUTSIDE RECORDS SUMMARY | 2025-07-12 19:10 | XMS_ITS | Encounter Summary ---
Author Organization [facility] Prior to 05/29/2024 Address [address] [place] [address] Care Team Providers Care Manager Pediatric Name Role Phone Madelaine Ocasio MD Primary Care Provider Unavailable Steven Taylor MD Primary Care Provider Encounter Details Date Type Department Care Team Description 05/13/2018 Stone Operator Report Medical Records [address] [place] [address] Howie Esteves Social History Tobacco Use Types [...] on filedocumented in this encounter Care Teams Manager Pediatric Relationship Specialty Start Date End Date Madelaine Ocasio MD PCP - General 04/19/0610/19 Steven Taylor MD [address] [place] [address] PCP - General Internal Medicine 10/20/20 documented as of this encounter
--- OUTSIDE RECORDS SUMMARY | 2025-07-12 19:10 | XMS_ITS | Encounter Summary ---
Author Organization [employer] [facility] Prior to 05/29/2024 Address [address] [place] [address] Care Team Providers Care Commissioner Of Conciliation Name Role Phone Madelaine Ocasio MD Primary Care Provider Unavailable Steven Taylor MD Primary Care Provider Encounter Details Date Type Department Care Team Description 03/28/2020 [facility] Medical Records [address] [place] [address] Ivan Yoder Social History Tobacco Use Types [...] on filedocumented in this encounter Care Teams Commissioner Of Conciliation Relationship Specialty Start Date End Date Madelaine Ocasio MD PCP - General 04/19/0610/19 Steven Taylor MD [address] [place] [address] PCP - General Internal Medicine 10/20/20 documented as of this encounter
--- OUTSIDE RECORDS SUMMARY | 2025-07-12 19:10 | XMS_ITS | Clinical Summary ---
Author Organization [facility] Address [address] [phone] Phone Care Team Providers Care Artificial Pearl Maker Name Role Phone Isabel Taylor MD Primary Care Provider [phone] Social History Tobacco Use Types Packs/Day Years [...] file Medical Devices Not on file Insurance [facility] PPO BLUE CROSS OUT OF STATE PPO BLUE CROSS OUT OF STATE PPO BLUE CROSS OUT OF [facility] PPO BLUE CROSS OUT OF STATE PPO [facility] OUT STATE PPO Care Teams Artificial Pearl Maker Relationship Specialty Start Date End Date Isabel Taylor MD [address] [place] [address] PCP - General Internal Medicine 11/20/21 Additional Source Comments The information contained in this document represents components of the legal health record. It is not the complete legal health record.[facility]
--- OUTSIDE RECORDS SUMMARY | 2025-07-12 19:10 | XMS_ITS | Encounter Summary ---
Author Organization [facility] [facility] Prior to 05/29/2024 Address [address] [place] [address] Care Team Providers Care Raking Machine Operator Name Role Phone Madelaine Ocasio MD Primary Care Provider Unavailable Steven Taylor MD Primary Care Provider Encounter Details Date Type Department Care Team Description 06/07/2014 Principal Trainer Report Medical Records [address] [place] [address] Shine Faulkner Social History Tobacco Use Types [...] on filedocumented in this encounter Care Teams Raking Machine Operator Relationship Specialty Start Date End Date Madelaine Ocasio MD PCP - General 04/19/0610/19 Steven Taylor MD [address] [place] [address] PCP - General Internal Medicine 10/20/20 documented as of this encounter
--- OUTSIDE RECORDS SUMMARY | 2025-07-12 19:10 | XMS_ITS | Encounter Summary ---
Author Organization [facility] [employer] [facility] Prior to 05/29/2024 Address [address] [place] [address] Care Team Providers Care Computer Engineering Professor Name Role Phone Madelaine Ocasio MD Primary Care Provider Unavailable Steven Taylor MD Primary Care Provider Encounter Details Date Type Department Care Team Description 08/15/2016 Broadcast Operations Director Report Medical Records [address] [place] [address] Yvan Lee MD [address] [place] [id number] Social History Tobacco Use Types Packs/Day Years [...] on filedocumented in this encounter Care Teams Computer Engineering Professor Relationship Specialty Start Date End Date Madelaine Ocasio MD PCP - General 04/19/0610/19 Steven Taylor MD [address] [place] [address] PCP - General Internal Medicine 10/20/20 documented as of this encounter
--- OUTSIDE RECORDS SUMMARY | 2025-07-12 19:10 | XMS_ITS | Encounter Summary ---
Author Organization [employer] [facility] Prior to 05/29/2024 Address [address] [place] [address] Care Team Providers Care Pull Out Operator Name Role Phone Madelaine Ocasio MD Primary Care Provider Unavailable Steven Taylor MD Primary Care Provider Encounter Details Date Type Department Care Team Description 02/07/2015 Air Conditioning Unit Tester Report Medical Records [address] [place] [address] Abstract, Provider Social History Tobacco Use Types [...] on filedocumented in this encounter Care Teams Pull Out Operator Relationship Specialty Start Date End Date Madelaine Ocasio MD PCP - General 04/19/0610/19 Steven Taylor MD [address] [place] [address] PCP - General Internal Medicine 10/20/20 documented as of this encounter
--- OUTSIDE RECORDS SUMMARY | 2025-07-12 19:11 | XMS_ITS | Encounter Summary ---
Author Organization [facility] Prior to 05/29/2024 Address [address] [place] [address] Care Team Providers Care Paramedical Aide Name Role Phone Madelaine Ocasio MD Primary Care Provider Unavailable Steven Taylor MD Primary Care Provider Encounter Details Date Type Department Care Team Description 03/07/2010 Bioinformatics Developer Report Medical Records [address] [place] [address] [place] [address] [place] [address] Social History Tobacco Use Types Packs/Day Years Used Date Smoking Tobacco: Never Alcohol Use Standard Drinks/Week Comments [...] on filedocumented in this encounter Care Teams Paramedical Aide Relationship Specialty Start Date End Date Madelaine Ocasio MD PCP - General 04/19/0610/19 Steven Taylor MD [address] [place], [place] [phone] PCP - General Internal Medicine 10/20/20 documented as of this encounter
--- OUTSIDE RECORDS SUMMARY | 2025-07-12 19:11 | XMS_ITS | Encounter Summary ---
Author Organization [facility] [employer] [facility] Prior to 05/29/2024 Address [address] [place] [address] Care Team Providers Care Molder Shoulder Pad Name Role Phone Madelaine Ocasio MD Primary Care Provider Unavailable Steven Taylor MD Primary Care Provider Encounter Details Date Type Department Care Team Description 02/27/2010 Barnworker Groom Report Medical Records [address] [place] [address] Shine Faulkner Social History Tobacco Use Types [...] on filedocumented in this encounter Care Teams Molder Shoulder Pad Relationship Specialty Start Date End Date Madelaine Ocasio MD PCP - General 04/19/0610/19 Steven Taylor MD [address] [place] [address] PCP - General Internal Medicine 10/20/20 documented as of this encounter
--- OUTSIDE RECORDS SUMMARY | 2025-07-12 19:11 | XMS_ITS | Encounter Summary ---
Author Organization [employer] [facility] Prior to 05/29/2024 Address [address] [place] [address] Care Team Providers Care Mat Weaver Name Role Phone Madelaine Ocasio MD Primary Care Provider Unavailable Steven Taylor MD Primary Care Provider Encounter Details Date Type Department Care Team Description 12/12/2010 Hydrant Setter Report Medical Records [address] [place] [address] Samuel Nihcolson Social History Tobacco Use Types Packs/Day Years [...] on filedocumented in this encounter Care Teams Mat Weaver Relationship Specialty Start Date End Date Madelaine Ocasio MD PCP - General 04/19/0610/19 Steven Taylor MD [address] [place] [address] PCP - General Internal Medicine 10/20/20 documented as of this encounter
--- OUTSIDE RECORDS SUMMARY | 2025-07-12 19:11 | XMS_ITS | Encounter Summary ---
Author Organization [employer] [facility] Prior to 05/29/2024 Address [address] [place] [address] Care Team Providers Care Product Delivery Specialist Name Role Phone Madelaine Ocasio MD Primary Care Provider Unavailable Steven Taylor MD Primary Care Provider Encounter Details Date Type Department Care Team Description 06/12/2017 Orders Only Medical Records [address] [place] [address] Madelaine Ocasio MD Social History Tobacco Use Types Packs/Day Years [...] Procedure Name Priority Date/Time Associated Diagnosis Comments OUTSIDE SLEEP STUDY Routine 06/07/2017 documented in this encounter Results * OUTSIDE SLEEP STUDY (06/07/2017) Madelaine Ocasio MD PULMONOLOGY documented in this encounter Visit Diagnoses Not on filedocumented in this encounter Care Teams Product Delivery Specialist Relationship Specialty Start Date End Date Madelaine Ocasio MD PCP - General 04/19/0610/19 Steven Taylor MD [address] [place], [place] [phone] PCP - General Internal Medicine 10/20/20 documented as of this encounter
== END 2025-07-12 13:05 | disposition home or self-care (01) ==
LOC: HO.HOSX 13:04
PROVIDERS: PCP Internal Medicine; Visit Provider Physician Assistant
DX: M43.16 Spondylolisthesis, lumbar region (principal); M48.061 Spinal stenosis, lumbar region without neurogenic claudication
CPT/HCPCS: 72110

== ENCOUNTER → 2025-07-12 13:12 | Outpatient (BNV) | payer BC, SELFPAY | PROVIDERS: PCP Internal Medicine; Visit Provider Radiology Diagnostic Radiology | DX: M48.061 Spinal stenosis, lumbar region without neurogenic claudication (principal); Z98.1 Arthrodesis status | CPT/HCPCS: 72110 ==